=== PATIENT | female | born 1995 | race Caucasian/White ===

== ENCOUNTER 2022-05-21 12:32 | Emergency (ER) | payer MEDICAID, SELFPAY ==
[2022-05-21 12:37] VITALS: BP 102/68; PULSE 84; RESP 14; TEMP 36.6; O2SAT 97; BMI 25.2
--- NOTE | 2022-05-21 13:06 | ED_ITS ---
HPI - General Adult General: Chief complaint: Dizziness Stated complaint: dizzy; h/a; chills; exhaustion Time Seen by Provider: 05/21/22 12:58 History of Present Illness: 27-year-old female presenting to the emergency room with 3 days of generalized weakness decreased appetite and cough. Patient tells me that her sister who is 25 years old was recently tested positive for non-COVID coronavirus. Patient denies any fever but reports generalized weakness, decreased appetite. Patient tells me she has not really eaten in the last 3 days. Patient is currently on her period and has occasional vaginal spotting. Patient has a history of anemia but has not denies any heavy bleeding , melena hematochezia. No other urinary complaints at this time. Onset:3 days ago Duration:3 days Location:home Severity:mild Associated symptoms: Reports nausea; Deny chest pain, dyspnea, rash, palpitations or vomiting Review of Systems Const: Denies: fever(s) or chills Eyes: Denies: change in vision ENMT: Denies: mouth pain Card: Denies: chest pain or palpitations Resp: Reports: non-productive cough; Denies: dyspnea GI: Reports: nausea and other (+decreased po intake); Denies: abdominal pain, vomiting or diarrhea : Denies: dysuria Musc: Denies: extremity pain Skin/Breast: Denies: rash or new lesions Neuro: Denies: weakness in extremities Psych: Reports: other (Normal mood) Edi/Lymph: Denies: easy bruising PFSH ED PFSH: Medical History Anemia Social History Smoking and tobacco status: never smoked Alcohol intake: never Substance/Drug Use: never Female Reproductive History: Date of last menstrual period: 05/13/22 Physical Exam Const: COMMON NORMALS: alert HENMT: COMMON NORMALS: atraumatic HEAD & SCALP: atraumatic MOUTH: moist mucous membranes not abnormal Eye: COMMON NORMALS: EOMs intact bilaterally and conjunctivae normal CONJUNCTIVA: Yes conjunctivae normal Neck/C-Spine: COMMON NORMALS: full ROM and supple Resp: COMMON NORMALS: normal respiratory effort and clear to auscultation bilaterally AUSCULTATION: clear to auscultation bilaterally Cardio: COMMON NORMALS: regular rate RATE: regular rate GI: COMMON NORMALS: Soft to palpation and non-tender PALPATION: Yes Soft to palpation OTHER: No focal TTP. NO guarding rebound, guarding, rigidity. No CVA tenderness to percussion. Neg Garcia/Neg McBurney's point tenderness, no suprabupic tenderness to palpation. Extremity: COMMON NORMALS: full ROM Neuro: SENSORIUM/ORIENTATION: Yes alert MOTOR EXAM: No Abnormal motor strength present and Other motor observations present (no focal motor deficits) Psych: COMMON NORMALS: speech normal SPEECH: Yes normal speech MOOD & AFFECT: Yes euthymic mood Course Vital Signs: Vital signs: Vital Signs Temperature 97.8 F 05/21/22 12:37 Pulse Rate 84 05/21/22 12:37 Respiratory Rate 14 05/21/22 12:37 Blood Pressure 102/68 05/21/22 12:37 Pulse Oximetry 97 05/21/22 12:37 Oxygen Delivery Me thod 05/21/22 12:37 MDM - General Adult Medical Decision Making 27-year-old female presenting to the emergency room with 3 days of generalized weakness decreased appetite and cough. UA showed 3+ blood. Patient is currently on her period. Patient has no signs of flank pain nausea/vomiting, do not suspect acute renal colic. No signs of UTI in the urine. White count 7.0. Hemoglobin 13.9. Rest of lab largely within normal limit. Patient received IVF, Zofran GI cocktail reports feeling symptomatically improved. Patient tolerated p.o. without any difficulty. Rx tylenol PRN abd pain, maalox/pepcid PRN dyspepsia, and zofran PRN nausea/vomiting Disposition: Discharge. Patient counseled regarding diagnostic impression, treatment plan. Patient given ED strict return precautions to return for continuation, worsening, or development of new symptoms. Instructed to f/u w/ PCP regarding symptoms today. Patient verbalized understanding. Lab Data : 05/21/22 13:25 05/21/22 13:25 Laboratory Results WBC 7.0 10^3/uL (4.0-10.0) 05/21/22 13:25 RBC 4.49 10^6/uL (4.1-5.3) 05/21/22 13:25 Hgb 13.9 g/dL (11.5-15.3) 05/21/22 13:25 Hct 42.6 % (37.0-47.0) 05/21/22 13:25 MCV 94.9 fl (81-99) 05/21/22 13:25 MCH 31.0 pg (28.0-34.0) 05/21/22 13:25 MCHC 32.6 g/dL (30.0-36.0) 05/21/22 13:25 RDW 12.0 % (12.1-15.1) L 05/21/22 13:25 Plt Count 219 10^3/cmm (130-400) 05/21/22 13:25 MPV 10.8 fL (7.4-10.4) H 05/21/22 13:25 Neut % (Auto) 65.7 % 05/21/22 13:25 Lymph % (Auto) 24.6 % 05/21/22 13:25 [place] % (Auto) 7.8 % 05/21/22 13:25 Eos % (Auto) 1.2 % 05/21/22 13:25 Baso % (Auto) 0.6 % 05/21/22 13:25 Neut # (Auto) 4.57 10^3/uL (1.8-7.7) 05/21/22 13:25 Lymph # (Auto) 1.7 10^3/uL (0.8-4.8) 05/21/22 13:25 [place] # (Auto) 0.5 10^3/uL (0.2-0.9) 05/21/22 13:25 Eos # (Auto) 0.1 10^3/uL (0.0-0.8) 05/21/22 13:25 Baso # (Auto) 0.0 10^3/uL (0.0-0.1) 05/21/22 13:25 Nucleated RBC % (auto) 0 % 05/21/22 13:25 Nucleated RBCs # 0.0 /100WBC 05/21/22 13:25 Sodium 141 mmol/L (136-145) 05/21/22 13:25 Potassium 3.8 mmol/L (3.5-5.1) 05/21/22 13:25 Chloride 103 mmol/L (98-107) 05/21/22 13:25 Carbon Dioxide 27 mmol/L (22-29) 05/21/22 13:25 Anion Gap 14.8 (5-19) 05/21/22 13:25 BUN 22 mg/dL (6-20) H 05/21/22 13:25 Creatinine 0.9 mg/dL (0.5-0.9) 05/21/22 13:25 GFR Calculation 75.1 mL/min (90-130) L 05/21/22 13:25 Glucose 79 mg/dL (65-115) 05/21/22 13:25 Calculated Osmolality 294 mOsm/kg (285-295) 05/21/22 13:25 Calcium 9.0 mg/dL (8.5-10.5) 05/21/22 13:25 Total Bilirubin 0.5 mg/dL (0.15-1.2) 05/21/22 13:25 AST 13 U/L (0-32) 05/21/22 13:25 ALT 12 U/L (0-33) 05/21/22 13:25 Alkaline Phosphatase 55 U/L (35-105) 05/21/22 13:25 Total Protein 7.8 g/dL (6.6-8.7) 05/21/22 13:25 Albumin 4.8 g/dL (3.5-5.2) 05/21/22 13:25 Globulin 3.0 g/dL (1.3-4.6) 05/21/22 13:25 Lipase 23 U/L (13-60) 05/21/22 13:25 HCG, Qual Negative (Negative) 05/21/22 13:08 Urine Color Yellow (Yellow) 05/21/22 13:08 Urine Appearance Clear (CLEAR) 05/21/22 13:08 Urine pH 5 (5-7) 05/21/22 13:08 Ur Specific [place] 1.025 (1.005-1.030) 05/21/22 13:08 Urine Protein Neg (Negative) 05/21/22 13:08 Urine Glucose (UA) Norm (Normal) 05/21/22 13:08 Urine Ketones Negative (Negative) 05/21/22 13:08 Urine Blood 3+ (Negative) H 05/21/22 13:08 Urine Nitrate Negative (Negative) 05/21/22 13:08 Urine Bilirubin Neg (Negative) 05/21/22 13:08 Urine Urobilinogen Norm mg/dL (Negative) 05/21/22 13:08 Ur Leukocyte Esterase Negative (Negative) 05/21/22 13:08 Urine RBC None /hpf (0-2) 05/21/22 13:08 Urine WBC Rare /hpf (0-5) 05/21/22 13:08 Ur Squamous Epith Cells 0-4 /hpf (0-5) H 05/21/22 13:08 Amorphous Sediment Not Reportable 05/21/22 13:08 Urine Bacteria 1+ /hpf (NONE) H 05/21/22 13:08 Urine Mucus 1+ /hpf 05/21/22 13:08 Discharge Plan Discharge Patient Disposition: Home Clinical Impression: Malaise, Generalized weakness Condition: Stable Prescriptions: New acetaminophen 500 mg tablet 500 mg PO Q6H PRN (Reason: pain) 5 Days Qty: 20 0RF Maalox Advanced 1,000-60 mg tablet,chewable 1 tab PO TID PRN (Reason: abdominal pain) 7 Days Qty: 21 0RF Pepcid 20 mg tablet 20 mg PO BID PRN (Reason: abdominal pain) 10 Days Qty: 20 0RF ondansetron 4 mg tablet,disintegrating 4 mg PO TID PRN (Reason: nausea and vomiting) 4 Days Qty: 12 0RF Discharge Orders: Discharge ED (Routine); Ordered 05/21/22 Ordered By: Nilay Harrison Discharge Diet: Advance as tolerated Discharge Activity: Increase activity as tolerated Patient Instructions: Acute Cough (ED) Activity Restrictions/Additional Instructions: Come back to the emergency room if your symptoms worsen, have any shortness of breath, fever/chills, dehydration, inability tolerate food or drinks, any difficulty breathing, or any new or concerning complaints. Please come back if you have any worsening abdominal pain, fever or chills, nausea or vomiting, diarrhea, blood in the stool, inability hold down liquid or solids, or any new concerning complaints. Coding Level of Care Code ED Automation Tender for Chg Fwd Exam Comprehensive
[2022-05-21] MEDS: sodium chloride 0.9% 1,000 ML 999 ML IV ×2 (13:23→14:23)
[2022-05-21] MEDS: lidocaine 2% viscous 15 ML, aluminum-mag hydrox-simethicon 30 ML, sucralfate oral liq 1 GM PO (13:23)
[2022-05-21 13:35] LABS: Basophils % 0.6 %; Eosinophils # 0.1 10^3/uL (0.0-0.8); Eosinophils % 1.2 %; Hematocrit 42.6 % (37.0-47.0); Hemoglobin 13.9 g/dL (11.5-15.3); Lymphocytes # 1.7 10^3/uL (0.8-4.8); Lymphocytes % 24.6 %; Mean Corpuscular HGB Conc 32.6 g/dL (30.0-36.0); Mean Corpuscular Volume 94.9 fl (81-99); Mean Platelet Volume 10.8 fL (7.4-10.4); Monocytes # 0.5 10^3/uL (0.2-0.9); Monocytes % 7.8 %; Neutrophils # 4.57 10^3/uL (1.8-7.7); Neutrophils % 65.7 %; Nucleated Red Blood Cells % 0 %; Platelet Count 219 10^3/cmm (130-400); Red Blood Count 4.49 10^6/uL (4.1-5.3)
[2022-05-21 13:36] LABS: HCG Qualitative Urine. Negative (Negative)
[2022-05-21] MEDS: ketorolac 30 mg/mL INJ IVP (13:51)
[2022-05-21 14:09] LABS: Alanine Aminotransferase 12 U/L (0-33); Albumin Level 4.8 g/dL (3.5-5.2); Alkaline Phosphatase 55 U/L (35-105); Anion Gap 14.8 (5-19); Aspartate Amino Transferase 13 U/L (0-32); Blood Urea Nitrogen 22 mg/dL (6-20); Carbon Dioxide 27 mmol/L (22-29); Chloride 103 mmol/L (98-107); Glomerular Filtration Rate 75.1 mL/min (90-130); Glucose 79 mg/dL (65-115); Lipase 23 U/L (13-60); Osmolality Calculated 294 mOsm/kg (285-295); Potassium 3.8 mmol/L (3.5-5.1); Sodium 141 mmol/L (136-145); Total Bilirubin 0.5 mg/dL (0.15-1.2); Total Protein 7.8 g/dL (6.6-8.7)
[2022-05-21 14:11] LABS: Add Urine Microscopic? YES; Bilirubin Urine Neg (Negative); Blood Urine 3+ (Negative); Glucose Urine UA Norm (Normal); Ketones Urine Negative (Negative); Leukocyte Esterase Urine Negative (Negative); Nitrate Urine Negative (Negative); Protein Urine Neg (Negative); Specific Gravity, Urine 1.025 (1.005-1.030); Urine Appearance Clear (CLEAR); Urine Color Yellow (Yellow); Urobilinogen Urine Norm (Negative); pH Urine 5 (5-7)
[2022-05-21 14:17] LABS: Bacteria Urine 1+ /hpf; Mucus Urine 1+ /hpf; Squamous Epithelial Cell Urine 0-4 /hpf (0-5); WBC Urine RARE /hpf (0-5)
[2022-05-21 14:18] LABS: Add Urine Culture? No
[2022-05-21 15:08] VITALS: BP 104/70; PULSE 84; RESP 14; TEMP 36.6; O2SAT 97
[2022-05-21 16:19] LABS: Adenovirus Not Detected (NOT DETECT); Chlamydia Pneumoniae Not Detected (NOT DETECT); Coronavirus 229E,HKU1,NL63,OC4 Not Detected (NOT DETECT); Human Metapneumovirus Not Detected (NOT DETECT); Human Rhinovirus/Enterovirus Not Detected (NOT DETECT); Influenza A Not Detected (NOT DETECT); Influenza A H1 Not Detected (NOT DETECT); Influenza A H1-2009 Not Detected (NOT DETECT); Influenza A H3 Not Detected (NOT DETECT); Influenza B Not Detected (NOT DETECT); Mycoplasma Pneumoniae Not Detected (NOT DETECT); Parainfluenza Virus Type 1 Not Detected (NOT DETECT); Parainfluenza Virus Type 2 Not Detected (NOT DETECT); Parainfluenza Virus Type 3 Not Detected (NOT DETECT); Parainfluenza Virus Type 4 Not Detected (NOT DETECT); Respiratory Syncytial Virus A Not Detected (NOT DETECT); Respiratory Syncytial Virus B Not Detected (NOT DETECT); SARS-COV-2 Not Detected (NOT DETECT)
[2022-05-21 16:56] LABS: Influenza A Not Detected (NOT DETECT); Influenza A H1 Not Detected (NOT DETECT); Influenza A H1-2009 Not Detected (NOT DETECT); Influenza A H3 Not Detected (NOT DETECT); Influenza B Not Detected (NOT DETECT); Results from Genmark
== END 2022-05-21 15:13 | disposition home or self-care (01) ==
PROVIDERS: Emergency Provider Emergency Medicine
DX: R53.81 Other malaise (principal); R53.1 Weakness; Z20.822 Contact with and (suspected) exposure to COVID-19
CPT/HCPCS: 80053; 81001; 81025; 83690; 85025; 87631; 87635; 96361; 96374; 99284; J1885; J7030

== ENCOUNTER → 2022-12-08 10:09 | Outpatient (BNVA) | payer MEDICAID, SELFPAY | PROVIDERS: Visit Provider Nurse Practitioner Family | DX: M25.511 Pain in right shoulder (principal) | CPT/HCPCS: 73030 ==

== ENCOUNTER 2023-02-04 08:22 | Emergency (ER) | payer MEDICAID, SELFPAY ==
[2023-02-04 08:27] VITALS: BP 104/75; PULSE 79; RESP 18; TEMP 36.6; O2SAT 99; BMI 25.7
[2023-02-04 08:45] VITALS: BP 104/75; PULSE 79; RESP 18; O2SAT 99
--- NOTE | 2023-02-04 08:55 | ED_ITS ---
HPI - Extremity Problem General: Chief complaint: Extremity Injury, Upper Stated complaint: pain in RT shoulder Time Seen by Provider: 02/04/23 08:42 History of Present Illness: Patient presents to the ER with right-sided posterior rib/scapular region pain. She has had this pain for several days this instance she has had it multiple times in the past. She is seen ER/family practice/chiropractors. They states the rib pops out of place. MD Complaint: other (Right posterior rib shoulder pain.) Onset (ago): day(s) (This time 2 days otherwise off and on) Pain Consistency: constant Location: right and upper extremity Quality: burning and aching Radiation: distal Relieving factors: nothing Exacerbating factors: range of motion and palpation Associated symptoms: Reports no associated symptoms; Deny chest pain, fever(s) or rash Review of Systems General: Reports: 10 or more systems reviewed and unremarkable except in HPI and below Const: Denies: fever(s) or chills Eyes: Denies: change in vision or photophobia ENMT: Denies: throat pain or odynophagia Card: Denies: chest pain or palpitations Resp: Denies: dyspnea or productive cough GI: Denies: abdominal pain, nausea or vomiting : Denies: flank pain or difficulty voiding Musc: Reports: back pain Skin/Breast: Denies: rash or pruritus PFS ED PFSH: Medical History Anemia Social History Smoking and tobacco status: never smoked Alcohol intake: never Substance/Drug Use: never Physical Exam Const: COMMON NORMALS: no acute distress, average body habitus, patient oriented x3, no limitations, healthy appearing, alert and well nourished HENMT: COMMON NORMALS: normocephalic, atraumatic, hearing grossly normal bilaterally, external ears normal, Normal external nose present and moist oral mucous membranes HEAD & SCALP: normocephalic and atraumatic NOSE: Normal external nose present EXTERNAL EAR: Yes external ears normal Eye: COMMON NORMALS: Equal, round and reactive pupils present, EOMs intact bilaterally, conjunctivae normal and no scleral icterus CONJUNCTIVA: Yes conjunctivae normal PUPIL: Yes Equal, round and reactive pupils present Neck/C-Spine: COMMON NORMALS: full ROM, no lymphadenopathy, no meningeal signs, no JVD and Thyroid normal THYROID: Thyroid normal Chest: COMMONS NORMALS: normal inspection of the chest and normal palpation of entire chest wall Resp: COMMON NORMALS: normal respiratory effort, No retractions, No use of accessory muscles and clear to auscultation bilaterally AUSCULTATION: clear to auscultation bilaterally Cardio: COMMON NORMALS: no JVD, regular rate, regular rhythm, S1 normal heart sound present, S2 normal heart sound present, No gallops present (Cardio), No clicks present (Cardio), No murmurs present (Cardio) and No rub (Cardio) RATE: regular rate RHYTHM: regular rhythm HEART SOUNDS: S1 normal heart sound present and S2 normal heart sound present Back/Pelvis: OTHER: Tenderness to palpation over approximately T6 on the right ropey fibrotic muscles tender to palpation with radiation. Negative tenderness over spinal process. Neuro: COMMON NORMALS: patient oriented x3 SENSORIUM/ORIENTATION: Yes alert MENINGEAL SIGNS: Yes no meningeal signs Course Vital Signs: Vital signs: Vital Signs Temperature 97.9 F 02/04/23 08:27 Pulse Rate 79 02/04/23 08:45 Respiratory Rate 18 02/04/23 08:45 Blood Pressure 104/75 02/04/23 08:45 Pulse Oximetry 99 02/04/23 08:45 Oxygen Delivery Me thod Room Air 02/04/23 08:45 MDM - Extremity (Nontraumatic) Medical Decision Making Patient presents to the ER with complaints of right thoracic spine/scapular pain reproducible with palpation. Patient has had this multiple times in the past and went to a chiropractor with resolution. This pain is reproducible with palpation and does radiate. Patient has some somatic dysfunction of her thora cic spinal region with fibrotic ropey muscles. Patient will be given Toradol IM and be sent home on anti-inflammatory. Patient will be told to follow-up with her PCP and chiropractor as needed. Differential Diagnosis Unlikely herpes zoster, gout, cellulitis, superficial thrombophlebitis, deep venous thrombosis of upper extremity, lower extremity edema or deep vein thrombosis of lower extremity Medical Records I reviewed the patient's medical records. Lab Data I reviewed the patient's lab results. Discharge Plan Discharge Patient Disposition: Home Clinical Impression: Thoracic spine dysfunction, Spasm of thoracic back muscle Condition: Stable Prescriptions: New meloxicam 7.5 mg tablet 7.5 mg PO BID Qty: 14 0RF cyclobenzaprine 5 mg tablet 5 mg PO Q8H PRN (Reason: muscle spasm) Qty: 14 0RF No Action ondansetron 8 mg tablet,disintegrating 8 mg PO Q8H PRN (Reason: nausea and vomiting) 5 Days Qty: 15 0RF dicyclomine 20 mg tablet 20 mg PO TID Qty: 30 0RF Discharge Orders: Discharge ED (Routine); Ordered 02/04/23 Ordered By: Billy Zambrano Referrals: Arben Sigala MD [Primary Care Provider] - 1 week Patient Instructions: Thoracic Pain (ED), Muscle Spasm (ED) Activity Restrictions/Additional Instructions: Please take medicine as directed. Please use anti-inflammatories on a daily basis until better. Please use the muscle relaxers on an as-needed basis. Please follow-up with your family practice physician and/or chiropractor for further treatment Coding Level of Care Code ED Plug Overwrap Machine Tender for Zach Moe
[2023-02-04] MEDS: ketorolac 60 mg/2 mL INJ IM (09:02)
[2023-02-04 09:16] VITALS: PULSE 68; RESP 18; O2SAT 99
== END 2023-02-04 09:17 | disposition home or self-care (01) ==
PROVIDERS: Emergency Provider Emergency Medicine
DX: M53.84 Other specified dorsopathies, thoracic region (principal); M62.830 Muscle spasm of back
CPT/HCPCS: 96372; 99284; J1885

== ENCOUNTER 2023-04-22 11:37 | Emergency (ER) | payer OTHER, MEDICAID, SELFPAY ==
[2023-04-22 11:40] VITALS: BMI 25.9
[2023-04-22 11:43] VITALS: BP 104/70; PULSE 88; RESP 16; TEMP 37.1; O2SAT 99
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
[2023-04-22 14:15] VITALS: BP 202/131; O2SAT 97
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
== END 2023-04-22 15:44 | disposition home or self-care (01) ==
PROVIDERS: Emergency Provider Emergency Medicine
DX: M54.50 Low back pain, unspecified (principal); F07.81 Postconcussional syndrome
CPT/HCPCS: 70450; 72100; 99284

== ENCOUNTER → 2023-06-15 09:29 | Outpatient (BNVA) | payer MEDICAID, SELFPAY | PROVIDERS: Visit Provider Family Medicine | DX: Z86.2 Personal history of diseases of the blood and blood-forming organs and certain disorders involving the immune mechanism; K21.9 Gastro-esophageal reflux disease without esophagitis; G47.00 Insomnia, unspecified | CPT/HCPCS: 80053; 82728; 83550; 84439; 84443; 85025 ==

== ENCOUNTER 2023-07-02 09:54 | Emergency (ER) | payer MEDICAID, SELFPAY ==
[2023-07-02 09:59] VITALS: BP 108/69; PULSE 83; RESP 16; TEMP 36.8; O2SAT 97; BMI 26.6
--- NOTE | 2023-07-02 10:25 | W.ED.BACK ---
HPI - Back Pain/Injury General: Chief Complaint: Back Pain/Injury Stated Complaint: upper Rt Abd pain Time Seen by Provider: 07/02/23 09:55 Source: patient Mode of arrival: ambulatory History of Present Illness: 28-year-old female presents emergency room complaining of upper back pain at the level of the lower scapula. She states is actually worse when she rubs that she is or moves in particular ways she done some heavy lifting and twisting yesterday overnight seem to be worse. She has had this intermittently for years she has been to her chiropractor for it she has tried various cilh-iyz-kqbaguz medications with no particular relief of the symptoms she denies any dysuria urgency or frequency nausea vomiting or diarrhea at this time. MD elicited complaint: back pain Pertinent past history: prior back pain Onset (ago): hour(s) Timing: constant Severity: moderate Similar Symptoms Previously: Yes Quality: sharp Location: thoracic spine (Right side level of the lower portion of the scapula) Radiation: chest (Right lateral chest) Exacerbating factors: movement (Twisting) and other (Massaging area) Relieving factors: immobilization Context: while lifting and turning/twisting Associated symptoms: Deny abdominal pain, chills, dysuria, fever(s) or urinary urgency Work related injury: No Review of Systems Const: Denies: fever(s) or chills Card: Denies: chest pain Resp: Denies: dyspnea GI: Denies: abdominal pain : Denies: dysuria, urinary frequency or urinary urgency Musc: Denies: neck pain or back pain Skin/Breast: Denies: rash PFSH ED PFSH: Medical History Acid reflux Anemia Anxiety Asthma Depression History of anemia IBS (irritable bowel syndrome) Insomnia Surgical History History of bilateral tubal ligation History of History of cholecystectomy Family History Grandmother Cancer Maternal-brain Mother Cancer breast/cervical Family/Other Cancer Maternal aunt-breast/cervical Family/Other Cancer, Onset Age: 4 Maternal lhmti-hxhghwyp-fyujmb away d/t this Brother Psychiatric illness Sister Psychiatric illness Sister Psychiatric illness Other Bleeding disorder Diabetes Hypertension Lung disease Stroke Denies family history of CAD (coronary artery disease) Clotting disorder Dementia Hyperlipidemia Chronic kidney disease (CKD) Anesthesia complication Social History Smoking and tobacco/nicotine status: never used tobacco/nicotine Alcohol intake: never Substance/Drug Use: never Lives independently: Yes Marital status: Number of children: 5 Current occupational status: disabled Rosalind/Worship: Sikhism Special roaslind needs: No Agree to transfusion: Yes Physical Exam Const: COMMON NORMALS: no acute distress GENERAL APPEARANCE: cooperative and comfortable ORIENTATION/CONSCIOUSNESS: Yes awake, Yes oriented to person, Yes oriented to place and Yes oriented to time HENMT: COMMON NORMALS: normocephalic, atraumatic and hearing grossly normal bilaterally HEAD & SCALP: normocephalic and atraumatic Resp: COMMON NORMALS: normal respiratory effort, No retractions, No use of accessory muscles and clear to auscultation bilaterally AUSCULTATION: clear to auscultation bilaterally Cardio: COMMON NORMALS: regular rate, regular rhythm and No murmurs present (Cardio) RATE: regular rate RHYTHM: regular rhythm GI: COMMON NORMALS: Soft to palpation and No hepatosplenomegaly present AUSCULTATION: Yes normoactive bowel sounds PALPATION: Yes Soft to palpation, No Tenderness to palpation present (GI), No Guarding due to palpation present (GI) and Yes No hepatosplenomegaly present Extremity: COMMON NORMALS: normal to inspection, capillary refill normal, no clubbing, cyanosis or edema, no calf tenderness and no pedal edema Neuro: SENSORIUM/ORIENTATION: Yes oriented to person, Yes oriented to place and Yes oriented to time Skin: COMMON NORMALS: no rashes or lesions noted GENERAL SKIN EXAM: no rashes or lesions noted Course Vital Signs: Vital signs: Vital Signs Temperature 98.2 F 07/02/23 09:59 Pulse Rate 83 07/02/23 09:59 Respiratory Rate 16 07/02/23 09:59 Blood Pressure 108/69 07/02/23 09:59 Pulse Oximetry 97 07/02/23 09:59 Oxygen Delivery Me thod Room Air 07/02/23 09:59 MDM - Back Pain/Injury Medical Decision Making Labs and imaging reviewed no acute findings. No leukocytosis no elevation of liver enzymes chest x-ray unremarkable. Suspect this more musculoskeletal in nature tizanidine diclofenac to use as needed follow-up with primary care if worsening or change recheck Differential Diagnosis Likely renal colic, pyelonephritis and thoracic back pain Medical Records I reviewed the patient's medical records. Labs I reviewed the patient's lab results. 07/02/23 11:27 07/02/23 11:27 Radiology Impressions Chest X-Ray 07/02/23 10:32 IMPRESSION: No acute findings. Laboratory Results WBC 5.69 10^3/uL (3.29-11.43) 07/02/23 11: RBC 4.19 10^6/uL (3.85-5.65) 07/02/23 11: Hgb 13.00 g/dL (11.27-16.99) 07/02/23 11: Hct 39.5 % (36-47) 07/02/23 11: MCV 94.3 fl (85-98) 07/02/23 11: MCH 31.0 pg (27-33) 07/02/23 11: MCHC 32.9 g/dL (30-55) 07/02/23 11: RDW 11.7 % (12.1-15.1) L 07/02/23 11: Plt Count 183 10^3/cmm (157-399) 07/02/23 11: MPV 10.0 fL (7.4-10.4) 07/02/23 11: Neut % (Auto) 59.5 % 07/02/23 11: Lymph % (Auto) 28.5 % 07/02/23 11: Mckinley % (Auto) 9.5 % 07/02/23 11: Eos % (Auto) 1.4 % 07/02/23 11: Baso % (Auto) 0.7 % 07/02/23 11: Neut # (Auto) 3.39 10^3/uL (1.8-7.7) 07/02/23 11: Lymph # (Auto) 1.6 10^3/uL (0.8-4.8) 07/02/23 11:27 Mckinley # (Auto) 0.5 10^3/uL (0.2-0.9) 07/02/23 11:27 Eos # (Auto) 0.1 10^3/uL (0.0-0.8) 07/02/23 11:27 Baso # (Auto) 0.0 10^3/uL (0.0-0.1) 07/02/23 11:27 Nucleated RBC % (auto) 0 % 07/02/23 11:27 Nucleated RBCs # 0.0 /100WBC 07/02/23 11:27 Sodium 138 mmol/L (136-145) 07/02/23 11:27 Potassium 3.8 mmol/L (3.5-5.1) 07/02/23 11:27 Chloride 104 mmol/L (98-107) 07/02/23 11:27 Carbon Dioxide 26 mmol/L (22-29) 07/02/23 11:27 Anion Gap 11.8 (5-19) 07/02/23 11:27 BUN 23 mg/dL (6-20) H 07/02/23 11:27 Creatinine 0.7 mg/dL (0.5-0.9) 07/02/23 11:27 GFR Calculation 99.6 mL/min (90-130) 07/02/23 11:27 Glucose 89 mg/dL (65-115) 07/02/23 11:27 Calculated Osmolality 289 mOsm/kg (285-295) 07/02/23 11:27 Calcium 8.8 mg/dL (8.5-10.5) 07/02/23 11:27 Total Bilirubin 0.8 mg/dL (0.15-1.2) 07/02/23 11:27 AST 16 U/L (0-32) 07/02/23 11:27 ALT 11 U/L (0-33) 07/02/23 11:27 Alkaline Phosphatase 54 U/L (35-105) 07/02/23 11:27 Total Protein 7.0 g/dL (6.6-8.7) 07/02/23 11:27 Albumin 4.5 g/dL (3.5-5.2) 07/02/23 11:27 Globulin 2.5 g/dL (1.3-4.6) 07/02/23 11:27 Urine Color Yellow (Yellow) 07/02/23 11:53 Urine Appearance Clear (CLEAR) 07/02/23 11:53 Urine pH 6 (5-7) 07/02/23 11:53 Ur Specific [place] 1.020 (1.005-1.030) 07/02/23 11:53 Urine Protein Neg (Negative) 07/02/23 11:53 Urine Glucose (UA) Norm (Normal) 07/02/23 11:53 Urine Ketones Negative (Negative) 07/02/23 11:53 Urine Blood Trace (Negative) H 07/02/23 11:53 Urine Nitrate Negative (Negative) 07/02/23 11:53 Urine Bilirubin Neg (Negative) 07/02/23 11:53 Urine Urobilinogen Norm mg/dL (Negative) 07/02/23 11:53 Ur Leukocyte Esterase Negative (Negative) 07/02/23 11:53 Urine RBC 0-4 /hpf (0-2) H 07/02/23 11:53 Urine WBC 0-4 /hpf (0-5) H 07/02/23 11:53 Ur Squamous Epith Cells 0-4 /hpf (0-5) H 07/02/23 11:53 Amorphous Sediment Not Reportable 07/02/23 11:53 Urine Bacteria 2+ /hpf (NONE) H 07/02/23 11:53 Urine Mucus 1+ /hpf 07/02/23 11:53 All radiology interpretation(s) finalized by discharge Discharge Plan Discharge Patient Disposition: Home Clinical Impression: Thoracic back pain Condition: Stable Prescriptions: New tizanidine 4 mg tablet 4 mg PO Q6H PRN (Reason: muscle spasticity) Qty: 20 0RF Rx Instructions: do not exceed 3 doses per 24 hrs diclofenac sodium 75 mg tablet,delayed release (DR/EC) 75 mg PO Q12H PRN (Reason: pain) Qty: 20 0RF No Action ascorbate calcium (vitamin C) 500 mg tablet 500 mg PO DAILY Discharge Orders: Discharge ED (Routine); Ordered 07/02/23 Ordered By: Cornelius Henry Referrals: Arben Sigala MD [Primary Care Provider] - Discharge Diet: Usual diet Discharge Activity: Increase activity as tolerated Patient Instructions: Opioid Safety, Pain Management Activity Restrictions/Additional Instructions: If not improving with the medicines prescribed today follow-up with your primary care doctor for further evaluation of possible referral to physical therapy is felt appropriate Coding Level of Care Code ED E Learning Manager for Zach Moe
--- NOTE | 2023-07-02 10:32 | XRR_ITS ---
PROCEDURE INFORMATION: Exam: XR Chest Exam date and time: 07/02/2023 10:52 AM Age: 28 years old Clinical indication: Cough and dyspnea; Additional info: Dyspnea/cough TECHNIQUE: Imaging protocol: Radiologic exam of the chest. Views: 1 view. COMPARISON: CR XR shoulder RT min 2V* [id number] 12/08/2022 10:18 AM FINDINGS: Lungs: Unremarkable. No consolidation. Pleural spaces: Unremarkable. No pleural effusion. No pneumothorax. Heart/Mediastinum: Unremarkable. No cardiomegaly. Bones/joints: Unremarkable. XR/XR chest 1V portable [id number] IMPRESSION: No acute findings.
[2023-07-02] MEDS: ketorolac 30 mg/mL INJ IVP (10:42)
[2023-07-02 11:34] LABS: Basophils % 0.7 %; Eosinophils # 0.1 10^3/uL (0.0-0.8); Eosinophils % 1.4 %; Hematocrit 39.5 % (36-47); Lymphocytes # 1.6 10^3/uL (0.8-4.8); Lymphocytes % 28.5 %; Mean Corpuscular HGB Conc 32.9 g/dL (30-55); Mean Corpuscular Volume 94.3 fl (85-98); Monocytes # 0.5 10^3/uL (0.2-0.9); Monocytes % 9.5 %; Neutrophils # 3.39 10^3/uL (1.8-7.7); Neutrophils % 59.5 %; Nucleated Red Blood Cells % 0 %; Platelet Count 183 10^3/cmm (157-399); Red Blood Count 4.19 10^6/uL (3.85-5.65); Red Cell Distribution Width 11.7 % (12.1-15.1); White Blood Count 5.69 10^3/uL (3.29-11.43)
[2023-07-02 11:56] LABS: Alanine Aminotransferase 11 U/L (0-33); Albumin Level 4.5 g/dL (3.5-5.2); Alkaline Phosphatase 54 U/L (35-105); Anion Gap 11.8 (5-19); Aspartate Amino Transferase 16 U/L (0-32); Blood Urea Nitrogen 23 mg/dL (6-20); Calcium 8.8 mg/dL (8.5-10.5); Carbon Dioxide 26 mmol/L (22-29); Chloride 104 mmol/L (98-107); Globulin 2.5 g/dL (1.3-4.6); Glomerular Filtration Rate 99.6 mL/min (90-130); Glucose 89 mg/dL (65-115); Osmolality Calculated 289 mOsm/kg (285-295); Potassium 3.8 mmol/L (3.5-5.1); Sodium 138 mmol/L (136-145); Total Bilirubin 0.8 mg/dL (0.15-1.2)
[2023-07-02 12:13] LABS: Add Urine Microscopic? YES; Bacteria Urine 2+ /hpf; Bilirubin Urine Neg (Negative); Blood Urine Trace (Negative); Glucose Urine UA Norm (Normal); Ketones Urine Negative (Negative); Leukocyte Esterase Urine Negative (Negative); Mucus Urine 1+ /hpf; Nitrate Urine Negative (Negative); Protein Urine Neg (Negative); RBC Urine 0-4 /hpf (0-2); Squamous Epithelial Cell Urine 0-4 /hpf (0-5); Urine Appearance Clear (CLEAR); Urine Color Yellow (Yellow); Urobilinogen Urine Norm (Negative); WBC Urine 0-4 /hpf (0-5); pH Urine 6 (5-7)
[2023-07-02 12:14] LABS: Add Urine Culture? No
== END 2023-07-02 12:36 | disposition home or self-care (01) ==
PROVIDERS: Emergency Provider Family Medicine
DX: M54.6 Pain in thoracic spine (principal)
CPT/HCPCS: 36415; 71045; 80053; 81001; 85025; 96374; 99284; J1885

== ENCOUNTER → 2023-10-19 15:46 | Outpatient (BNVA) | payer MEDICAID, SELFPAY | PROVIDERS: Visit Provider Nurse Practitioner Family | DX: J02.9 Acute pharyngitis, unspecified (principal) | CPT/HCPCS: 87880 ==

== ENCOUNTER → 2024-01-22 09:08 | Outpatient (BNVA) | payer MEDICAID, SELFPAY | PROVIDERS: Visit Provider Nurse Practitioner Family | DX: R05.9 Cough, unspecified (principal) | CPT/HCPCS: 87400 ==

== ENCOUNTER → 2024-03-08 11:36 | Outpatient (BNVA) | payer MEDICAID, SELFPAY | PROVIDERS: Visit Provider Nurse Practitioner | DX: R39.9 Unspecified symptoms and signs involving the genitourinary system (principal); Z20.2 Contact with and (suspected) exposure to infections with a predominantly sexual mode of transmission | CPT/HCPCS: 81000; 87086; 87491; 87591 ==

== ENCOUNTER 2024-03-16 19:36 | Emergency (ER) | payer MEDICAID, SELFPAY ==
--- NOTE | 2024-03-16 19:40 | XRR_ITS ---
PROCEDURE INFORMATION: Exam: XR Right Knee Exam date and time: 03/16/2024 7:52 PM Age: 28 years old Clinical indication: Right; Patient HX: C/O worsening knee pain x 1 week. No injury. TECHNIQUE: Imaging protocol: Radiologic exam of the right knee. Views: 3 views. COMPARISON: No relevant prior studies available. FINDINGS: Bones/joints: No evidence of acute fracture or dislocation. No erosive disease. No significant degenerative change. No joint effusion. Soft tissues: Normal. XR/XR knee RT 3V* [id number] IMPRESSION: Normal exam.
[2024-03-16 19:42] VITALS: BP 112/74; PULSE 78; RESP 17; TEMP 36.8; O2SAT 98; BMI 26.2
--- NOTE | 2024-03-16 19:55 | W.ED.EXTPRO ---
HPI - Extremity Problem General: Chief complaint: Extremity Injury, Lower Stated complaint: Right knee pain Time Seen by Provider: 03/16/24 19:48 History of Present Illness: 28-year-old female comes in today with right knee pain. On exam patient appears nontoxic. Patient appears no acute distress. Patient reports for the last 7 days she has had increased pain to her knee. Patient reports that the pain increases the longer she stands on her knee. Patient also reports that when she rubs on the medial condyle of the femur she has more tenderness to the knee. Review of Systems General: Reports: 10 or more systems reviewed and unremarkable except in HPI and below PFSH ED PFSH: Medical History History of anemia Acid reflux Depression Anxiety IBS (irritable bowel syndrome) Insomnia Asthma Anemia Surgical History History of bilateral tubal ligation History of History of cholecystectomy Family History Grandmother Cancer Maternal-brain Mother Cancer breast/cervical Family/Other Cancer Maternal aunt-breast/cervical Family/Other Cancer, Onset Age: 4 Maternal tqurd-iunnglwl-qmxpbr away d/t this Brother Psychiatric illness Sister Psychiatric illness Sister Psychiatric illness Other Bleeding disorder Diabetes Hypertension Lung disease Stroke Denies family history of CAD (coronary artery disease) Clotting disorder Dementia Hyperlipidemia Chronic kidney disease (CKD) Anesthesia complication Social History Smoking and tobacco/nicotine status: unknown if used tobacco/nicotine Alcohol intake: never Substance/Drug Use: never Lives independently: Yes Marital status: Number of children: 5 Current occupational status: disabled Rosalind/Worship: Church Special rosalind needs: No Agree to transfusion: Yes Physical Exam Const: COMMON NORMALS: alert HENMT: COMMON NORMALS: normocephalic HEAD & SCALP: normocephalic Neck/C-Spine: COMMON NORMALS: full ROM Resp: COMMON NORMALS: normal respiratory effort Back/Pelvis: COMMON NORMALS: thoracic and lumbar spine normal to inspection Extremity: COMMON NORMALS: normal to inspection and full ROM RIGHT LOWER EXTREMITY: Yes knee joint (Joint line tenderness, no swelling) Neuro: SENSORIUM/ORIENTATION: Yes alert Skin: COMMON NORMALS: turgor normal GENERAL SKIN EXAM: turgor normal Course Vital Signs: Vital signs: Vital Signs Temperature 98.2 F 03/16/24 19:42 Pulse Rate 79 03/16/24 20:00 Respiratory Rate 15 03/16/24 20:00 Blood Pressure 105/70 03/16/24 20:00 Pulse Oximetry 97 03/16/24 20:00 Oxygen Delivery Me thod Room Air 03/16/24 20:00 MDM - Extremity (Nontraumatic) Medical Decision Making Patient comes in today for aggravating knee pain for the last week. On exam patient appears nontoxic. No obvious swelling is noted. Some medial joint line tenderness is noted to the knee. Differential diagnosis includes meniscal tear, contusion, osteoarthritis, sprain. X-ray was unremarkable. Believe patient most likely has a meniscal injury. Reviewed recommendations for conservative treatment and need for follow-up with orthopedics for further evaluation. Patient agreed to plan and recommendations for follow-up. XR interpretation done by ED provider, pending radiology final review Discharge Plan Discharge Patient Disposition: Home Clinical Impression: Impingement of right knee joint Condition: Stable Prescriptions: No Action nitrofurantoin monohyd/m-cryst [Macrobid] 100 mg capsule 100 mg PO BID 7 Days Qty: 14 0RF Rx Instructions: must administer with a meal/food Discharge Orders: Discharge ED (Routine); Ordered 03/16/24 Ordered By: Kit Rod Referrals: Arben Sigala MD [Primary Care Provider] - Discharge Diet: Usual diet Discharge Activity: Increase activity as tolerated Patient Instructions: Knee Pain (ED) Activity Restrictions/Additional Instructions: Use acetaminophen and/or ibuprofen as needed for pain. Ice packs for severe pain. Case management will contact you regarding follow-up with the orthopedist. Return to ED for new concerns. Coding Level of Care Code ED Development Planner for Zach Moe
[2024-03-16 20:00] VITALS: BP 105/70; PULSE 79; RESP 15; O2SAT 97
--- NOTE | 2024-03-19 07:13 | DCPLANNER ---
Message sent to Ortho for a follow up on possible meniscal injury to knee
== END 2024-03-16 20:28 | disposition home or self-care (01) ==
PROVIDERS: Emergency Provider Nurse Practitioner Family
DX: M25.861 Other specified joint disorders, right knee (principal); J45.909 Unspecified asthma, uncomplicated; E78.5 Hyperlipidemia, unspecified; I25.10 Atherosclerotic heart disease of native coronary artery without angina pectoris; F03.90 Unspecified dementia, unspecified severity, without behavioral disturbance, psychotic disturbance, mood disturbance, and anxiety
CPT/HCPCS: 73562; 99283

== ENCOUNTER 2024-08-04 12:15 | Emergency (ER) | payer MEDICAID, SELFPAY ==
[2024-08-04] VITALS (7 sets, daily range): BP systolic 112–133; BP diastolic 68–82; PULSE 68–90; RESP 16; TEMP 36.8; O2SAT 96–100; BMI 27.4
--- NOTE | 2024-08-04 12:35 | CTR_ITS ---
PROCEDURE INFORMATION: Exam: CT Head Without Contrast Exam date and time: 08/04/2024 12:39 PM Age: 29 years old Clinical indication: Injury or trauma; Fall; Blunt trauma (contusions or hematomas); Dizziness; Additional info: Fall, GARRETT, n/v TECHNIQUE: Imaging protocol: Computed tomography of the head without contrast. Axial, coronal and sagittal reformatted images were created and reviewed. Radiation optimization: All CT scans at this facility use at least one of these dose optimization techniques: automated exposure control; mA and/or kV adjustment per patient size (includes targeted exams where dose is matched to clinical indication); or iterative reconstruction. COMPARISON: CT head wo con* [id number] 04/22/2023 1:52 PM RADIATION DOSE METRICS: Total DLP (mGy-cm): 1052.18 FINDINGS: Brain: No CT evidence of acute intracranial hemorrhage or acute territorial infarction. No significant mass effect or midline shift. Basal cisterns patent. Cerebral ventricles: Normal in size and configuration. Paranasal sinuses: Unremarkable. No fluid levels. Mastoid air cells: Grossly unremarkable. Bones: Unremarkable. No acute fracture. Soft tissues: Grossly unremarkable. CT/CT head wo con* [id number] IMPRESSION: No CT evidence of acute intracranial pathology.
--- NOTE | 2024-08-04 13:04 | W.ED.FALL ---
HPI - Fall General: Chief Complaint: Fall Stated Complaint: fell - hit head, lightheaded, headache Time Seen by Provider: 08/04/24 12:21 History of Present Illness: Patient presents to the ER after a fall. Patient says she fell in her shower think she hit her head on the faucet. Denies loss conscious but does not remember a whole lot about the events after falling other than being nauseous and lightheaded and dizzy patient not on any blood thinners. Patient does have a history of a migraine for the last 3 days and she has a history of daily migraines. Related Data Home Medications Medication Instructions Recorded Confirmed ascorbic acid (vitamin C) 500 mg 250 mg PO DAILY 08/04/24 08/04/24 tablet (Vitamin C) gjzxllkl-xnu-abva-FA-Ca carb-vit K 1 tab PO DAILY 08/04/24 08/04/24 18 mg iron-400 mcg-500 mg tablet Allergies Allergy/AdvReac Type Severity Reaction Status Date / Time escitalopram [From Lexapro] Allergy ADR-Seizure Verified 08/04/24 12:32 sertraline [From Zoloft] Allergy ADR-Seizure Verified 08/04/24 12:32 Review of Systems General: Reports: 10 or more systems reviewed and unremarkable except in HPI and below PFSH ED PFSH: Medical History History of anemia Acid reflux Depression Anxiety IBS (irritable bowel syndrome) Insomnia Asthma Anemia Surgical History History of bilateral tubal ligation History of History of cholecystectomy Family History Grandmother Cancer Maternal-brain Mother Cancer breast/cervical Family/Other Cancer Maternal aunt-breast/cervical Family/Other Cancer, Onset Age: 4 Maternal lnzzv-bhvoovgw-epvrpd away d/t this Brother Psychiatric illness Sister Psychiatric illness Sister Psychiatric illness Other Bleeding disorder Diabetes Hypertension Lung disease Stroke Denies family history of CAD (coronary artery disease) Clotting disorder Dementia Hyperlipidemia Chronic kidney disease (CKD) Anesthesia complication Social History Smoking and tobacco/nicotine status: unknown if used tobacco/nicotine Alcohol intake: never Substance/Drug Use: never Lives independently: Yes Marital status: Number of children: 5 Current occupational status: disabled Rosalind/Restorationist: Nondenominational Special rosalind needs: No Agree to transfusion: Yes Physical Exam Const: COMMON NORMALS: no acute distress, average body habitus, patient oriented x3, no limitations, healthy appearing, alert and well nourished HENMT: COMMON NORMALS: normocephalic, atraumatic, hearing grossly normal bilaterally, external ears normal, Normal external nose present and moist oral mucous membranes HEAD & SCALP: normocephalic and atraumatic NOSE: Normal external nose present EXTERNAL EAR: Yes external ears normal Neck/C-Spine: COMMON NORMALS: full ROM, no lymphadenopathy, supple, no meningeal signs, no JVD and Thyroid normal THYROID: Thyroid normal Chest: COMMONS NORMALS: normal inspection of the chest and normal palpation of entire chest wall Resp: COMMON NORMALS: normal respiratory effort, No retractions, No use of accessory muscles and clear to auscultation bilaterally AUSCULTATION: clear to auscultation bilaterally Cardio: COMMON NORMALS: no JVD, regular rate, regular rhythm, S1 normal heart sound present, S2 normal heart sound present, No gallops present (Cardio), No clicks present (Cardio), No murmurs present (Cardio) and No rub (Cardio) RATE: regular rate RHYTHM: regular rhythm HEART SOUNDS: S1 normal heart sound present and S2 normal heart sound present GI: COMMON NORMALS: Normal to inspection, nondistended, normoactive bowel sounds present, Soft to palpation, non-tender, No hepatosplenomegaly present and no masses PALPATION: Yes Soft to palpation and Yes No hepatosplenomegaly present Neuro: COMMON NORMALS: patient oriented x3 SENSORIUM/ORIENTATION: Yes alert MENINGEAL SIGNS: Yes no meningeal signs Course Vital Signs: Vital signs: Vital Signs Temperature 98.2 F 08/04/24 12:22 Pulse Rate 81 08/04/24 14:32 Respiratory Rate 16 08/04/24 12:22 Blood Pressure 133/82 08/04/24 12:22 Pulse Oximetry 100 08/04/24 14:32 Oxygen Delivery Me thod Room Air 08/04/24 12:22 MDM - Fall Medical Decision Making Patient had a head CT read by the radiologist as negative. Patient was given Zofran for nausea which did seem to help. Patient be discharged home. Medical Records I reviewed the patient's medical records. Lab Data I reviewed the patient's lab results. Radiology Impressions Head CT 08/04/24 12:35 IMPRESSION: No CT evidence of acute intracranial pathology. All radiology interpretation(s) finalized by discharge Discharge Plan Discharge Patient Disposition: Home Clinical Impression: Fall, Headache Condition: Stable Prescriptions: No Action ascorbic acid (vitamin C) [Vitamin C] 500 mg Tablet 250 mg PO DAILY Women's Multivitamin 18 mg iron-400 mcg-500 mg Tablet 1 tab PO DAILY Discharge Orders: Discharge ED (Routine); Ordered 08/04/24 Ordered By: Billy Zambrano Referrals: Arben Sigala MD [Primary Care Provider] - 1 week Patient Instructions: Head Injury (ED), Headache Activity Restrictions/Additional Instructions: Your head CT performed in the ER was normal. It did not show any bleeding bruising or swelling. Please follow-up with your family practice physician within next 7 days for further evaluation and treatment as needed. Coding Level of Care Code ED Locomotive Observer for Zach oMe
[2024-08-04] MEDS: ondansetron 4 MG Tablet PO (13:45)
== END 2024-08-04 15:41 | disposition home or self-care (01) ==
PROVIDERS: Emergency Provider Emergency Medicine
DX: R51.9 Headache, unspecified (principal); W18.2XXA Fall in (into) shower or empty bathtub, initial encounter
CPT/HCPCS: 70450; 99284; Q0162

== ENCOUNTER 2024-10-06 16:54 | Emergency (ER) | payer MEDICAID, SELFPAY ==
[2024-10-06 17:21] VITALS: BP 100/63; PULSE 118; RESP 20; TEMP 38.5; O2SAT 100; BMI 26.6
--- NOTE | 2024-10-06 19:55 | ED_ITS ---
HPI - Nausea/Vomiting/Diarrhea 2 General: Chief complaint: Nausea/Vomiting/Diarrhea Stated complaint: dizzy,vomitting,weak Time Seen by Provider: 10/06/24 19:42 History of Present Illness: 29-year-old female comes in today with e pisodes of nausea, vomiting, cough and weakness for the last 2 days. Patient reports her son is also been ill. Patient denies any chronic medical problems. Associated nausea: Yes Associated symtoms: Reports nausea Related Data Home Medications Medication Instructions Recorded Confirmed ascorbic acid (vitamin C) 500 mg 250 mg PO DAILY 08/04/24 08/04/24 tablet (Vitamin C) hqjqewmk-yyh-akuu-FA-Ca carb-vit K 1 tab PO DAILY 08/04/24 08/04/24 18 mg iron-400 mcg-500 mg tablet Previous Rx's Medication Instructions Recorded ondansetron HCl 4 mg tablet 4 mg PO Q8H PRN Nausea And 10/06/24 Vomiting 3 days #9 tabs Allergies Allergy/AdvReac Type Severity Reaction Status Date / Time escitalopram [From Lexapro] Allergy ADR-Seizure Verified 10/06/24 17:21 sertraline [From Zoloft] Allergy ADR-Seizure Verified 10/06/24 17:21 Review of Systems 2 General: Reports: 10 or more systems reviewed and unremarkable except in HPI and below ENMT: Reports: nasal discharge Resp: Reports: non-productive cough GI: Reports: nausea and vomiting PFSH ED 2 PFSH: Medical History History of anemia Acid reflux Depression Anxiety IBS (irritable bowel syndrome) Insomnia Asthma Anemia Surgical History History of bilateral tubal ligation History of History of cholecystectomy Family History Grandmother Cancer Maternal-brain Mother Cancer breast/cervical Family/Other Cancer Maternal aunt-breast/cervical Family/Other Cancer, Onset Age: 4 Maternal fvlbw-jfenpaps-htjxpw away d/t this Brother Psychiatric illness Sister Psychiatric illness Sister Psychiatric illness Other Bleeding disorder Diabetes Hypertension Lung disease Stroke Denies family history of CAD (coronary artery disease) Clotting disorder Dementia Hyperlipidemia Chronic kidney disease (CKD) Anesthesia complication Social History (Reviewed 08/04/24 @ 13:04 by VICTORIANO Israel Smoking and tobacco/nicotine status: unknown if used tobacco/nicotine Alcohol intake: never Substance/Drug Use: never Lives independently: Yes Marital status: Number of children: 5 Current occupational status: disabled Rosalind/Baptist: Religion Special rosalind needs: No Agree to transfusion: Yes Physical Exam 2 Const: COMMON NORMALS: alert HENMT: COMMON NORMALS: normocephalic HEAD & SCALP: normocephalic NOSE: N sangeeta discharge present Neck/C-Spine: COMMON NORMALS: full ROM Resp: COMMON NORMALS: normal respiratory effort and clear to auscultation bilaterally AUSCULTATION: clear to auscultation bilaterally Cardio: COMMON NORMALS: regular rate and regular rhythm RATE: regular rate RHYTHM: regular rhythm GI: COMMON NORMALS: Soft to palpation PALPATION: Yes Soft to palpation and Yes Tenderness to palpation present (GI) (Epigastric) Extremity: COMMON NORMALS: normal to inspection Neuro: SENSORIUM/ORIENTATION: Yes alert Skin: COMMON NORMALS: turgor normal GENERAL SKIN EXAM: turgor normal Course 2 Vital Signs: Vital signs: Vital Signs Temperature 101.3 F H 10/06/24 17:21 Pulse Rate 116 H 10/06/24 20:34 Respiratory Rate 18 10/06/24 20:34 Blood Pressure 92/62 10/06/24 20:34 Pulse Oximetry 100 10/06/24 20:34 Oxygen Delivery Me thod Room Air 10/06/24 20:34 MDM - Nausea/Vomiting/Diarrhea Medical Decision Making 29-year-old female comes in today with illness x 2 days. Patient reports her son is also been ill. Patient appears unwell but not toxic. Skin is warm and dry. Vital signs have some elevated heart rate in 118's, and a temperature of 101. Differential diagnosis includes but not limited to viral syndrome, dehydration, influenza, urinary tract infection, gastroenteritis, appendicitis. Patient was positive for influenza A. Patient's CMP noted a sodium of 134, potassium 3.4, creatinine 1.1, and anion gap of 22.4. CBC was unremarkable. Patient was dehydrated was given 2 L IV fluids and some Zofran and acetaminophen. Patient has significant improvement of symptoms. Patient be discharged home on a dancer Gavin and encouragement to drink plenty of fluids. Patient stated understanding agreed to plan. Lab Data 10/06/24 20:15 10/06/24 20:15 Laboratory Results WBC 5.84 10^3/uL (3.29-11.43) 10/06/24 20:15 RBC 4.03 10^6/uL (3.85-5.65) 10/06/24 20:15 Hgb 12.20 g/dL (11.27-16.99) 10/06/24 20:15 Hct 36.7 % (36-47) 10/06/24 20:15 MCV 91.1 fl (85-98) 10/06/24 20:15 MCH 30.3 pg (27-33) 10/06/24 20:15 MCHC 33.2 g/dL (30-55) 10/06/24 20:15 RDW 12.1 % (12.1-15.1) 10/06/24 20:15 Plt Count 197 10^3/cmm (157-399) 10/06/24 20:15 MPV 10.3 fL (7.4-10.4) 10/06/24 20:15 Neut % (Auto) 85.8 % 10/06/24 20:15 Lymph % (Auto) 2.6 % 10/06/24 20:15 Leon % (Auto) 10.8 % 10/06/24 20:15 Eos % (Auto) 0.0 % 10/06/24 20:15 Baso % (Auto) 0.3 % 10/06/24 20:15 Neut # (Auto) 5.01 10^3/uL (1.8-7.7) 10/06/24 20:15 Lymph # (Auto) 0.2 10^3/uL (0.8-4.8) L 10/06/24 20:15 Leon # (Auto) 0.6 10^3/uL (0.2-0.9) 10/06/24 20:15 Eos # (Auto) 0.0 10^3/uL (0.0-0.8) 10/06/24 20:15 Baso # (Auto) 0.0 10^3/uL (0.0-0.1) 10/06/24 20:15 Nucleated RBC % (auto) 0 % 10/06/24 20:15 Nucleated RBCs # 0.0 /100WBC 10/06/24 20:15 Sodium 134 mmol/L (136-145) L 10/06/24 20:15 Potassium 3.4 mmol/L (3.5-5.1) L 10/06/24 20:15 Chloride 99 mmol/L (98-107) 10/06/24 20:15 Carbon Dioxide 16 mmol/L (22-29) L 10/06/24 20:15 Anion Gap 22.4 (5-19) H 10/06/24 20:15 BUN 18 mg/dL (6-20) 10/06/24 20:15 Creatinine 1.1 mg/dL (0.5-0.9) H 10/06/24 20:15 GFR Calculation 58.7 mL/min (90-130) L 10/06/24 20:15 Glucose 123 mg/dL (65-115) H 10/06/24 20:15 Calculated Osmolality 281 mOsm/kg (285-295) L 10/06/24 20:15 Calcium 8.8 mg/dL (8.5-10.5) 10/06/24 20:15 Total Bilirubin 0.7 mg/dL (0.15-1.2) 10/06/24 20:15 AST 33 U/L (0-32) H 10/06/24 20:15 ALT 25 U/L (0-33) 10/06/24 20:15 Alkaline Phosphatase 60 U/L (35-105) 10/06/24 20:15 Total Protein 7.0 g/dL (6.6-8.7) 10/06/24 20:15 Albumin 4.4 g/dL (3.5-5.2) 10/06/24 20:15 Globulin 2.6 g/dL (1.3-4.6) 10/06/24 20:15 HCG, Qual Negative (Negative) 10/06/24 20:15 Amorphous Sediment Not Reportable 10/06/24 21:00 Coronavirus (PCR) Negative (Negative) 10/06/24 19:52 Influenza A (PCR) Positive (Negative) 10/06/24 19:52 Influenza Type B (PCR) Negative (Negative) 10/06/24 19:52 RSV (PCR) Negative (Negative) 10/06/24 19:52 No radiology studies performed this visit Discharge Plan Discharge Patient Disposition: Home Clinical Impression: Influenza A, Acute dehydration Condition: Stable Prescriptions: New ondansetron HCl 4 mg tablet 4 mg PO Q8H PRN (Reason: Nausea And Vomiting) 3 Days Qty: 9 0RF No Action ascorbic acid (vitamin C) [Vitamin C] 500 mg Tablet 250 mg PO DAILY Women's Multivitamin 18 mg iron-400 mcg-500 mg Tablet 1 tab PO DAILY Discharge Orders: Discharge ED (Routine); Ordered 10/06/24 Ordered By: Kit Rod Referrals: Arben Sigala MD [Primary Care Provider] - Discharge Diet: Advance as tolerated Discharge Activity: Increase activity as tolerated Patient Instructions: Influenza (ED) Activity Restrictions/Additional Instructions: Home and rest. Drink plenty of water and fluids. Use ondansetron as needed for nausea and vomiting. Make sure to take sips of water frequently to maintain hydration. Follow-up with primary care in 3 days for recheck. Return to ED for worsening symptoms. Stand Alone Forms: Work/School Release Coding Level of Care Code ED Wood Finisher Apprentice for Zach Moe
[2024-10-06 20:00] VITALS: BP 98/58; PULSE 118; RESP 18; O2SAT 100
[2024-10-06 20:25] LABS: Basophils % 0.3 %; Hematocrit 36.7 % (36-47); Lymphocytes # 0.2 10^3/uL (0.8-4.8); Lymphocytes % 2.6 %; Mean Corpuscular HGB Conc 33.2 g/dL (30-55); Mean Corpuscular Hemoglobin 30.3 pg (27-33); Mean Corpuscular Volume 91.1 fl (85-98); Mean Platelet Volume 10.3 fL (7.4-10.4); Monocytes # 0.6 10^3/uL (0.2-0.9); Monocytes % 10.8 %; Neutrophils # 5.01 10^3/uL (1.8-7.7); Neutrophils % 85.8 %; Nucleated Red Blood Cells % 0 %; Platelet Count 197 10^3/cmm (157-399); Red Blood Count 4.03 10^6/uL (3.85-5.65); Red Cell Distribution Width 12.1 % (12.1-15.1); White Blood Count 5.84 10^3/uL (3.29-11.43)
[2024-10-06] MEDS: acetaminophen 1,000 MG/100 ML PIGGYBACK 400 MG IV (20:29)
[2024-10-06] MEDS: lactated ringers 1,000 ML 999 ML IV (20:29)
[2024-10-06] MEDS: ondansetron 2 mg/ML SDV 2 mL 4 MG IVP (20:30)
[2024-10-06 20:33] LABS: HCG, Serum Qual Negative (Negative)
[2024-10-06 20:34] VITALS: BP 92/62; PULSE 116; RESP 18; O2SAT 100
[2024-10-06 20:39] LABS: Covid PCR NEGATIVE (Negative); Influenza A POSITIVE (Negative); Influenza B NEGATIVE (Negative); Respiratory Syncytial Virus Ce NEGATIVE (Negative)
[2024-10-06 20:46] LABS: Alanine Aminotransferase 25 U/L (0-33); Albumin Level 4.4 g/dL (3.5-5.2); Alkaline Phosphatase 60 U/L (35-105); Anion Gap 22.4 (5-19); Aspartate Amino Transferase 33 U/L (0-32); Blood Urea Nitrogen 18 mg/dL (6-20); Calcium 8.8 mg/dL (8.5-10.5); Carbon Dioxide 16 mmol/L (22-29); Chloride 99 mmol/L (98-107); Creatinine Clr Calc Pharmacy 75.3251; Globulin 2.6 g/dL (1.3-4.6); Glomerular Filtration Rate 58.7 mL/min (90-130); Glucose 123 mg/dL (65-115); Osmolality Calculated 281 mOsm/kg (285-295); Potassium 3.4 mmol/L (3.5-5.1); Sodium 134 mmol/L (136-145); Total Bilirubin 0.7 mg/dL (0.15-1.2)
[2024-10-06] MEDS: sodium chloride 0.9% 1,000 ML 999 ML IV (21:16)
[2024-10-06 21:22] LABS: Bilirubin Urine Negative (Negative); Blood Urine Negative (Negative); Glucose Urine UA Negative (Normal); Ketones Urine 3+ (Negative); Leukocyte Esterase Urine Negative (Negative); Nitrate Urine Negative (Negative); Protein Urine 1+ (Negative); Urine Appearance Clear (CLEAR); Urine Color Dark Yellow (Yellow); pH Urine 8.5 (5-7)
[2024-10-06 21:28] LABS: Add Urine Microscopic? YES; Bacteria Urine None Seen /hpf; Hyaline Casts Urine 4.52 /lpf; Squamous Epithelial Cell Urine 0-5 /hpf (0-5)
[2024-10-06 21:36] LABS: Specific Gravity, Urine 1.036 (1.005-1.030)
[2024-10-06 21:54] VITALS: BP 98/61; PULSE 85; RESP 16; O2SAT 96
[2024-10-06 22:55] VITALS: BP 100/70; PULSE 85; RESP 16; O2SAT 100
== END 2024-10-06 22:54 | disposition home or self-care (01) ==
PROVIDERS: Emergency Provider Nurse Practitioner Family
DX: J10.1 Influenza due to other identified influenza virus with other respiratory manifestations (principal); E86.0 Dehydration; Z11.52 Encounter for screening for COVID-19
CPT/HCPCS: 36415; 80053; 81001; 84703; 85025; 87637; 96365; 96375; 99284; J0131; J2405; J7030; J7120

== ENCOUNTER → 2025-05-13 12:30 | Outpatient (BNVA) | payer MEDICAID, SELFPAY | PROVIDERS: Visit Provider Registered Nurse Neonatal Intensive Care | DX: M79.672 Pain in left foot (principal); M25.572 Pain in left ankle and joints of left foot | CPT/HCPCS: 73610; 73630 ==

== ENCOUNTER 2025-06-03 07:38 | Emergency (ER) | payer MEDICAID, SELFPAY ==
--- OUTSIDE RECORDS SUMMARY | 2024-05-29 06:00 | XMS_ITS ---
Author Organization [facility] Accounts Recei vable Address [address] [place] [address] Care Team Providers Care Front Services Agent Name Role Phone Micah Ragsdale Unavailable [phone] Lopez Lee Unavailable REASON FOR VISIT ape Social History Sex Assigned At : Social History Observation Description Sex Assigned At Female Encounters Encounter Location Date Provider Diagnosis [address] [address] 05/29/2024 Lopez Lee Plan Of Treatment Next Appt Details Provider Name:Carol Jaquez 08:00:00 AM, [address] [place] [address], [address], Progress Notes * Janet JOHNSONDOB:1994 (30 yo F)Acc No.[id number]:05/29/2024 Patient: Janet ESPINOZA Provider: Lissy Serrato RDH :1995 A ge:29 Y S ex:Female Date:05/29/2024 Address:[address] [place] [address] [address], [facility] Patient's Default Facility:[facility] Subjective: * Chief Complaints: * 1 . Ape. * Medical History: Objective: * Vitals: Assessment: Plan: * Treatment: * Billing Information: * Visit Code: * Procedure Codes: * Electronic signature of Quinn Lee RDH on 06/03/2025 at 07:48 AM CDT Sign off status: Pending * Provider: Lissy Serrato RDH Date: 0 05/29/2024 Generated for Sammie tubbs/Danyelle/Shi on: 0 06/03/2025 07:48 AM CDT
--- OUTSIDE RECORDS SUMMARY | 2025-01-10 03:00 | XMS_ITS ---
Author Organization [facility] Accounts Recei vable Address [address] [place] [address] Care Team Providers Care Entry Level Installation Technician Name Role Phone Micah Ragsdale Unavailable [phone] Brody Spring Unavailable [phone] REASON FOR VISIT comp, xr, reeval tx.plp Social History Sex Assigned At : Social History Observation Description Sex Assigned At Female Encounters Encounter Location Date Provider Diagnosis [address] [address] 01/10/2025 Spring Skinner Plan Of Treatment Next Appt Details Provider Name:Carrie Younger, Carol 08:00:00 AM, [address] [place] [address], [address], Progress Notes * Janet JOHNSONDOB:1994 (30 yo F)Acc No.[id number]:01/10/2025 Progress Note Patient: Andrews GALDINOSAUDJanet Provider: Kostas Skinner RDH :1995 A ge:29 Y S ex:Female Date:01/10/2025 Address:[address] [place] [address] [address], [facility], [place] Patient's Default Facility:[facility] Subjective: * Chief Complaints: * 1 . Comp, xr, reeval tx.plp. * Medical History: Objective: * Vitals: Assessment: Plan: * Treatment: * Billing Information: * Visit Code: * Procedure Codes: * Electronic signature of Spring Skinner RDH on 06/03/2025 at 07:49 AM CDT Sign off status: Pending * Provider: Kostas Skinner RDH Date: 0 01/10/2025 Generated for Sammie tubbs/Danyelle/Shi on: 0 06/03/2025 07:49 AM CDT
--- OUTSIDE RECORDS SUMMARY | 2025-06-03 07:49 | XMS_ITS | Patient Health Record ---
Author Organization [facility] Accounts Recei vable Address [address] [place] [address] Care Team Providers Care Cash Crop Farmer Name Role Phone Micah Ragsdale Unavailable [phone] Spring Skinner Unavailable [phone] Carrie Younger Unavailable [phone] Allergies Allergen (clinical drug ingredient) Drug/Non Drug Allergy documented on EMR Reaction Allergy Type Onset Date Status escitalopram Lexapro (uncoded) Unknown Allergy Active sertraline Zoloft (uncoded) Unknown Allergy Ac tive Reason For Referral No Information Medications Medication SIG (Take, Route, Frequency, Duration) Notes Start Date End Date Status Zantac Not-Taking Iron Not-Taking HYDROcodone-Acetaminophe n 5-325 MG 1 tablet as needed Orally every 6 hrs for 5 days 03/30/2021 Not-Taking Cymbalta Not-Taking Vitamin B12 Active Allergy 24-HR Not-Ta Social History Sex Assigned At : Social History Observation Description Sex Assigned At Female Problems Problem Type SNOMED Code ICD Code Onset Dates Problem Status W/U Status Risk Notes Problem Screening for malignant neoplasm of the oral cavity (V76.42) Active confirmed Problem Toothache (finding) (57528814) Tooth pain (K08.89) Active confirmed Problem At high risk for dental caries (finding) (803178709) Risk for dental caries, high (Z91.843) Active confirmed Vital Signs Heart Rate 74 Minute 04/11/2025 Blood pressure diastolic 69 mm Hg 04/11/2025 Height 65 in 04/11/2025 Blood pressure systolic 107 mm Hg 04/11/2025 Weight 171.6 lbs 04/11/2025 BMI 28.55 kg/m2 04/11/2025 Encounters Encounter Location Date Provider Diagnosis [facility] [address] [address] 07/29/2024 Abu Hasme Tooth pain K08.[address] [address] 03/13/2025 Carrie Younger Tooth pain K08.[address] [address] 04/11/2025 [facility] Assessments Encounter Date Diagnosis (ICD Code) Assessment Notes Treatment Notes Treatment Clinical Notes 07/29/2024 Tooth pain (ICD-10 - K08.89) 03/13/2025 Tooth pain (ICD-10 - K08.89) 07/29/2024 Other [facility]: Care Instructions material was printed 03/13/2025 Other [facility]: Care Instructions material was printed 04/11/2025 Other [facility]: Care Instructions material was printed Plan Of Treatment Next Appt Details Provider Name:Carrie Younger, 1 08:00:00 AM, [address] [place] [address], [phone], Insurance Providers Payer Name Payer Address Payer Phone Subscriber Number Group Number Insured Name Patient Relationship to Insured Coverage Start Date Coverage End Date [employer] [address] [place], [place] [phone] [id number] Janet Johnson Self - patient is the insured Medical (General) History Medical History History ICD Code Allergies ADD\ ADHD astma Anxeity and Depression Surgical History Surgery Date(Month/Year) C section Tub tied Gallbladder Hospitalization History Reason Date(Month/Year) see above
--- OUTSIDE RECORDS SUMMARY | 2025-06-03 07:50 | XMS_ITS | Patient Health Record ---
Author Organization [facility] Address [address] [place] [address] Care Team Providers Care Buyer Agent Name Role Phone Arben Sigala MD Primary Care Provider UnavailBeena Hightower Unavailable [phone] Allergies Allergen (clinical drug ingredient) Drug/Non Drug Allergy documented on EMR Reaction Allergy Type Onset Date Status escitalopram Escitalopram Unknown Drug Allergy A ctive sertraline Sertraline Unknown Drug Allergy Activ e Reason For Referral No Information Medications Medication SIG (Take, Route, Frequency, Duration) Notes Start Date End Date Status DULoxetine HCl 30 MG Capsule Delayed Release Particles 1 capsule daily for 1 week then increase to 2 capsules daily Orally Once a day; Duration: 30 day(s) Activ e Immunizations Vaccine Route Administration Date Status Comme nts Influenza (whole), CPT 12261 Inactive Unknown 02/28/2019 Administered Influenza (whole), CPT 20336 Inactive Unknown 06/17/2019 Administered Social History Tobacco Use: Social History Observation Description Date Details (start date - stop date) Never Smoker NA - NA Social History Depression Screening Social Info Question Answer Notes PHQ-9 Little interest or pleasure in doing thin gs Several days Feeling down, depressed, or hopeless Several day s Trouble falling or staying asleep, or sleeping t oo much Several days Feeling tired or having little energy Several da ys Poor appetite or overeating Several days Feeling bad about yourself, or that you are a failure, or have let yourself or your family down Several days Trouble concentrating on thi ngs, such as reading the newspaper or watching television Several days Moving or speaking so slowly that other people could have noticed. Or the opposite ? being so fidgety or restless that you have been moving around a lot more than usual Not at all Thoughts that you would be b kelly off , or of hurting yourself in some way Not at all Total Score 7 Interpretation Mild Depression Drugs/Alcohol: Social Info Question Answer Notes Alcohol Screen (Audit-C) Did you have a drink containing alcohol in the past year? No Points 0 Interpretation Negative Drugs Have you used drugs other than those for medical reasons in the past 12 months? No Tobacco Use: Social Info Question Answer Notes xTobacco Use/Smoking Are you a nonsmoker Additional Details Category Social Info Options Details zzMigrated Social History Migrated Social History Smoking Status:Never smoked tobacco (finding) Problems Problem Type SNOMED Code ICD Code Onset Dates Problem Status W/U Status Risk Notes Problem visit (672182457) Encounter for routine follow-up (Z39.2) Active confirmed Problem Depression (541326614) Other depression (F32.89) Active confirmed Problem Gastroesophageal reflux disease (484359296) Gastroesophageal reflux disease, unspecified whether esophagitis present (K21.9) Active confirmed Plan Of Treatment No Information Insurance Providers Payer Name Payer Address Payer Phone Subscriber Number Group Number Insured Name Patient Relationship to Insured Coverage Start Date Coverage End Date [place] [address] [place] [phone] [id number] Janet Fisher Self - patient is the insured Medical (General) History Medical History History ICD Code Asthma Closed fracture of distal phalanx of fin calli Irregular periods Anemia Anxiety Chronic depression Irritable colon anxiety Surgical History Surgery Date(Month/Year) Cholecystectomy 2015 section 2018 Bilateral tubal ligation 09/25/2019 Hospitalization History Reason Date(Month/Year) see surgerys
[2025-06-03 07:51] VITALS: BP 128/75; PULSE 99; RESP 16; TEMP 36.9; O2SAT 99; BMI 28.8
--- NOTE | 2025-06-03 07:54 | XR_ITS ---
WS: [id number] Exam: XR chest 1V portable [id number] Date/Time of Exam: 06/03/2025 7:58 AM Reason For Exam: dyspnea/cough Comparison 07/02/2023. The lungs are clear and fully inflated. Normal cardiomediastinal silhouette. No pleural effusion. Bony structures are intact. S-shaped thoracolumbar scoliosis. XR/XR chest 1V portable [id number] IMPRESSION: 1. No acute cardiopulmonary finding.
--- NOTE | 2025-06-03 08:01 | W.ED.GENADLT ---
HPI - General Adult General: Chief complaint: General Medical Stated complaint: N/V/D Time Seen by Provider: 06/03/25 07:40 History of Present Illness: 30-year-old female presents emergency room with complaint of general flulike symptoms for the last week. Her boyfriend and 1 other close friend tested positive for COVID. She is complaining of nonproductive cough headache and sore throat myalgias subjective low-grade fever. Associated symptoms: Reports dyspnea, malaise, nausea and vomiting; Deny chest pain or rash Related Data Home Medications ?Medication ?Instructions ?Recorded ?Confirmed ascorbic acid (vitamin C) 500 mg 250 mg PO DAILY 08/04/24 05/13/25 tablet (Vitamin C) xkatvdmr-ony-vdlv-FA-Ca carb-vit K 1 tab PO DAILY 08/04/24 05/13/25 18 mg iron-400 mcg-500 mg tablet mecobalamin (vitamin B12) 1,000 1,000 mcg PO DAILY 05/13/25 05/13/25 mcg chewable tablet (B12 Active) Previous Rx's ?Medication ?Instructions ?Recorded metoclopramide HCl 10 mg tablet 10 mg PO Q6H PRN nausea and 06/03/25 (Reglan) vomiting #14 tabs Allergies Allergy/AdvReac Type Severity Reaction Status Date / Time escitalopram (From Lexapro) Allergy ADR-Seizure Verified 10/06/24 17:21 sertraline (From Zoloft) Allergy ADR-Seizure Verified 10/06/24 17:21 Review of Systems Const: Reports: fever(s), chills, body aches, fatigue and malaise Card: Denies: chest pain Resp: Reports: dyspnea and non-productive cough GI: Reports: nausea, vomiting and diarrhea; Denies: abdominal pain : Denies: dysuria, urinary frequency or urinary urgency Musc: Denies: neck pain or back pain Skin/Breast: Denies: rash PFSH ED PFSH: Medical History History of anemia Acid reflux Depression Anxiety IBS (irritable bowel syndrome) Insomnia Asthma Anemia Surgical History History of bilateral tubal ligation History of History of cholecystectomy Family History Grandmother Cancer Maternal-brain Mother Cancer breast/cervical Family/Other Cancer Maternal aunt-breast/cervical Family/Other Cancer, Onset Age: 4 Maternal fzsgf-ejkbyfhy-hrfuxj away d/t this Brother Psychiatric illness Sister Psychiatric illness Sister Psychiatric illness Other Bleeding disorder Diabetes Hypertension Lung disease Stroke Denies family history of CAD (coronary artery disease) Clotting disorder Dementia Hyperlipidemia Chronic kidney disease (CKD) Anesthesia complication Social History Smoking and tobacco/nicotine status: never used tobacco/nicotine Alcohol intake: never Substance/Drug Use: never Lives independently: Yes Marital status: Number of children: 5 Current occupational status: disabled Rosalind/Yarsanism: Pentecostal Special rosalind needs: No Agree to transfusion: Yes Physical Exam Const: COMMON NORMALS: no acute distress GENERAL APPEARANCE: cooperative ORIENTATION/CONSCIOUSNESS: Yes awake, Yes oriented to person, Yes oriented to place and Yes oriented to time HENMT: COMMON NORMALS: normocephalic, atraumatic and hearing grossly normal bilaterally HEAD & SCALP: normocephalic and atraumatic Resp: COMMON NORMALS: normal respiratory effort, No retractions, No use of accessory muscles and clear to auscultation bilaterally AUSCULTATION: clear to auscultation bilaterally Cardio: COMMON NORMALS: regular rate, regular rhythm and No murmurs present (Cardio) RATE: regular rate RHYTHM: regular rhythm GI: COMMON NORMALS: Soft to palpation and No hepatosplenomegaly present AUSCULTATION: Yes normoactive bowel sounds PALPATION: Yes Soft to palpation, No Tenderness to palpation present (GI), No Guarding due to palpation present (GI) and Yes No hepatosplenomegaly present Extremity: COMMON NORMALS: normal to inspection, capillary refill normal, no clubbing, cyanosis or edema, no calf tenderness and no pedal edema Neuro: SENSORIUM/ORIENTATION: Yes oriented to person, Yes oriented to place and Yes oriented to time Skin: COMMON NORMALS: no rashes or lesions noted GENERAL SKIN EXAM: no rashes or lesions noted Course Vital Signs: Vital signs: Vital Signs Temperature 98.4 F 06/03/25 07:51 Pulse Rate 99 06/03/25 07:51 Respiratory Rate 16 06/03/25 07:51 Blood Pressure 128/75 06/03/25 07:51 Pulse Oximetry 99 06/03/25 07:51 Oxygen Delivery Me thod Room Air 06/03/25 07:51 MDM - General Adult Medical Decision Making Patient received a phone call report stating her son had some kind of emergency she wanted to leave immediately she discharged home with antiemetics to use as needed COVID test is still pending based on her presenting symptoms and complaints suspect she does have COVID. If it is negative she likely has some other viral illness care would still be supportive. Medical Records I reviewed the patient's medical records. Lab Data I reviewed the patient's lab results. 06/03/25 07:57 06/03/25 07:57 Radiology Impressions Chest X-Ray 06/03/25 07:54 IMPRESSION: 1. No acute cardiopulmonary finding. Laboratory Results WBC 7.12 10^3/uL (3.29-11.43) 06/03/25 07:57 RBC 4.15 10^6/uL (3.85-5.65) 06/03/25 07:57 Hgb 12.60 g/dL (11.27-16.99) 06/03/25 07:57 Hct 38.2 % (36-47) 06/03/25 07:57 MCV 92.0 fl (85-98) 06/03/25 07:57 MCH 30.4 pg (27-33) 06/03/25 07:57 MCHC 33.0 g/dL (30-55) 06/03/25 07:57 RDW 12.4 % (12.1-15.1) 06/03/25 07:57 Plt Count 194 10^3/cmm (157-399) 06/03/25 07:57 MPV 9.9 fL (7.4-10.4) 06/03/25 07:57 Neut % (Auto) 66.3 % 06/03/25 07:57 Lymph % (Auto) 20.1 % 06/03/25 07:57 [place] % (Auto) 10.3 % 06/03/25 07:57 Eos % (Auto) 2.4 % 06/03/25 07:57 Baso % (Auto) 0.6 % 06/03/25 07:57 Neut # (Auto) 4.73 10^3/uL (1.8-7.7) 06/03/25 07:57 Lymph # (Auto) 1.4 10^3/uL (0.8-4.8) 06/03/25 07:57 [place] # (Auto) 0.7 10^3/uL (0.2-0.9) 06/03/25 07:57 Eos # (Auto) 0.2 10^3/uL (0.0-0.8) 06/03/25 07:57 Baso # (Auto) 0.0 10^3/uL (0.0-0.1) 06/03/25 07:57 Nucleated RBC % (auto) 0 % 06/03/25 07:57 Nucleated RBCs # 0.0 /100WBC 06/03/25 07:57 Sodium 139 mmol/L (136-145) 06/03/25 07:57 Potassium 3.9 mmol/L (3.5-5.1) 06/03/25 07:57 Chloride 103 mmol/L (98-107) 06/03/25 07:57 Carbon Dioxide 26 mmol/L (22-29) 06/03/25 07:57 Anion Gap 13.9 (5-19) 06/03/25 07:57 BUN 14 mg/dL (6-20) 06/03/25 07:57 Creatinine 0.9 mg/dL (0.5-0.9) 06/03/25 07:57 GFR Calculation 73.5 mL/min (90-130) L 06/03/25 07:57 Glucose 93 mg/dL (65-115) 06/03/25 07:57 Calculated Osmolality 288 mOsm/kg (285-295) 06/03/25 07:57 Calcium 9.1 mg/dL (8.5-10.5) 06/03/25 07:57 Total Bilirubin 0.6 mg/dL (0.15-1.2) 06/03/25 07:57 AST 20 U/L (0-32) 06/03/25 07:57 ALT 21 U/L (0-33) 06/03/25 07:57 Alkaline Phosphatase 68 U/L (35-105) 06/03/25 07:57 Total Protein 7.1 g/dL (6.6-8.7) 06/03/25 07:57 Albumin 4.5 g/dL (3.5-5.2) 06/03/25 07:57 Globulin 2.6 g/dL (1.3-4.6) 06/03/25 07:57 HCG, Qual Negative (Negative) 06/03/25 07:57 Urine Color Yellow (Yellow) 06/03/25 08:03 Urine Appearance Clear (CLEAR) 06/03/25 08:03 Urine pH 7.5 (5-7) 06/03/25 08:03 Ur Specific [place] 1.004 (1.005-1.030) L 06/03/25 08:03 Urine Protein Negative (Negative) 06/03/25 08:03 Urine Glucose (UA) Negative (Normal) 06/03/25 08:03 Urine Ketones Negative (Negative) 06/03/25 08:03 Urine Blood Negative (Negative) 06/03/25 08:03 Urine Nitrate Negative (Negative) 06/03/25 08:03 Urine Bilirubin Negative (Negative) 06/03/25 08:03 Urine Urobilinogen 0.2 mg/dL (Negative) 06/03/25 08:03 Ur Leukocyte Esterase Negative (Negative) 06/03/25 08:03 Urine RBC 0-2 /hpf (0-2) 06/03/25 08:03 Urine WBC 0-5 /hpf (0-5) 06/03/25 08:03 Ur Squamous Epith Cells 0-5 /hpf (0-5) 06/03/25 08:03 Amorphous Sediment Not Reportable 06/03/25 08:03 Urine Bacteria None seen /hpf (NONE) 06/03/25 08:03 Hyaline Casts 0-4 /lpf H 06/03/25 08:03 Influenza A (PCR) Negative (Negative) 06/03/25 08:03 Influenza Type B (PCR) Negative (Negative) 06/03/25 08:03 RSV (PCR) Negative (Negative) 06/03/25 08:03 SARS-CoV-2 (PCR) Negative (Negative) 06/03/25 08:03 All radiology interpretation(s) finalized by discharge Discharge Plan Discharge Patient Disposition: Home Clinical Impression: Suspected COVID-19 virus infection Condition: Stable Prescriptions: No Action mecobalamin (vitamin B12) [B12 Active] 1,000 mcg tablet,chewable 1,000 mcg PO DAILY ascorbic acid (vitamin C) [Vitamin C] 500 mg Tablet 250 mg PO DAILY Women's Multivitamin 18 mg iron-400 mcg-500 mg Tablet 1 tab PO DAILY metoclopramide HCl [Reglan] 10 mg tablet 10 mg PO Q6H PRN (Reason: nausea and vomiting) Qty: 14 0RF Discharge Orders: Discharge ED (Routine); Ordered 06/03/25 Ordered By: Cornelius Henry Referrals: Arben Sigala MD [Primary Care Provider, [facility]] Discharge Diet: Usual diet Discharge Activity: Resume usual activity Patient Instructions: Opioid Safety, Pain Management, Patient Portal & Kelly Instructions Activity Restrictions/Additional Instructions: [facility]. It is very important that you follow up as instructed or that you return to the Emergency Department should you have concerns or if your condition changes or worsens in any way. Emergency department visits are focused on emergent conditions, in some cases you may require further evaluation on an outpatient basis. You were seen in the emergency room with complaints of upper respiratory symptoms suggestive of COVID. Given your history of exposure to COVID this most likely is COVID. You were discharged home at your request but due to family emergency. Your vital signs and initial labs that were completed while you are still here were normal. (Please note that included in your discharge packet is information concerning opioid safety and pain management. This information is given to all patients were discharged from the ER regardless of their discharge diagnosis or the medicines they usually take or are prescribed.) Print Language: Mauritanian Coding Level of Care Code ED Set And Exhibit Designer for Zach Moe
[2025-06-03 08:02] LABS: Hematocrit 38.2 % (36-47); Hemoglobin 12.60 g/dL (11.27-16.99); Mean Corpuscular HGB Conc 33.0 g/dL (30-55); Mean Corpuscular Hemoglobin 30.4 pg (27-33); Mean Corpuscular Volume 92.0 fl (85-98); Nucleated Red Blood Cells % 0 %; Platelet Count 194 10^3/cmm (157-399); Red Blood Count 4.15 10^6/uL (3.85-5.65); White Blood Count 7.12 10^3/uL (3.29-11.43)
[2025-06-03 08:15] LABS: Glucose Urine UA Negative (Normal); Nitrate Urine Negative (Negative); Specific Gravity, Urine 1.004 (1.005-1.030)
[2025-06-03 08:20] LABS: Add Urine Microscopic? YES
[2025-06-03 08:21] LABS: Alanine Aminotransferase 21 U/L (0-33); Albumin Level 4.5 g/dL (3.5-5.2); Alkaline Phosphatase 68 U/L (35-105); Anion Gap 13.9 (5-19); Aspartate Amino Transferase 20 U/L (0-32); Blood Urea Nitrogen 14 mg/dL (6-20); Calcium 9.1 mg/dL (8.5-10.5); Carbon Dioxide 26 mmol/L (22-29); Chloride 103 mmol/L (98-107); Creatinine Clr Calc Pharmacy 94.6376; Globulin 2.6 g/dL (1.3-4.6); Glucose 93 mg/dL (65-115); Osmolality Calculated 288 mOsm/kg (285-295); Potassium 3.9 mmol/L (3.5-5.1); Sodium 139 mmol/L (136-145); Total Protein 7.1 g/dL (6.6-8.7)
[2025-06-03 08:22] LABS: HCG, Serum Qual Negative (Negative)
[2025-06-03 08:48] LABS: Respiratory Syncytial Virus Ce NEGATIVE (Negative); SARS-CoV-2 PCR NEGATIVE (Negative)
== END 2025-06-03 08:39 | disposition home or self-care (01) ==
PROVIDERS: Emergency Provider Family Medicine
DX: Z20.822 Contact with and (suspected) exposure to COVID-19 (principal); Z11.52 Encounter for screening for COVID-19
CPT/HCPCS: 36415; 71045; 80053; 81001; 84703; 85025; 87637; 96374; 96375; 99284; J0780; J1885; J7030

== ENCOUNTER 2025-06-03 10:25 | Emergency (ER) | payer MEDICAID, SELFPAY ==
[2025-06-03 10:25] VITALS: BP 101/78; PULSE 119; RESP 16; TEMP 36.8; O2SAT 96; BMI 26.6
--- NOTE | 2025-06-03 10:30 | W.ED.GENADLT ---
HPI - General Adult General: Chief complaint: Anxiety Stated complaint: anxiety - sob Time Seen by Provider: 06/03/25 10:29 History of Present Illness: 30-year-old female seen earlier today she is given Compazine and Toradol for headache she has good exposure to COVID her symptoms were consistent with COVID. She had opted to leave before her results came back because she had a family emergency. Now she has developed some anxiety talking to her she has some jitteriness especially in her legs and I suspect some of this is from the Compazine. She did not have any difficulty breathing. Her headache is resolved. She still is somewhat nauseous. Associated symptoms: Reports nausea and vomiting; Deny chest pain, dyspnea or rash Related Data Home Medications ?Medication ?Instructions ?Recorded ?Confirmed ascorbic acid (vitamin C) 500 mg 250 mg PO DAILY 08/04/24 05/13/25 tablet (Vitamin C) hqwmrnne-sdb-dpps-FA-Ca carb-vit K 1 tab PO DAILY 08/04/24 05/13/25 18 mg iron-400 mcg-500 mg tablet mecobalamin (vitamin B12) 1,000 1,000 mcg PO DAILY 05/13/25 05/13/25 mcg chewable tablet (B12 Active) Previous Rx's ?Medication ?Instructions ?Recorded metoclopramide HCl 10 mg tablet 10 mg PO Q6H PRN nausea and 06/03/25 (Reglan) vomiting #14 tabs Allergies Allergy/AdvReac Type Severity Reaction Status Date / Time escitalopram (From Lexapro) Allergy ADR-Seizure Verified 10/06/24 17:21 sertraline (From Zoloft) Allergy ADR-Seizure Verified 10/06/24 17:21 Review of Systems Const: Denies: fever(s) or chills ENMT: Reports: throat pain and hoarseness Card: Denies: chest pain Resp: Denies: dyspnea GI: Reports: nausea, vomiting and diarrhea; Denies: abdominal pain : Denies: dysuria, urinary frequency or urinary urgency Musc: Denies: neck pain or back pain Skin/Breast: Denies: rash PFSH ED PFSH: Medical History History of anemia Acid reflux Depression Anxiety IBS (irritable bowel syndrome) Insomnia Asthma Anemia Surgical History History of bilateral tubal ligation History of History of cholecystectomy Family History Grandmother Cancer Maternal-brain Mother Cancer breast/cervical Family/Other Cancer Maternal aunt-breast/cervical Family/Other Cancer, Onset Age: 4 Maternal hpezu-fepjqahw-ctgwwx away d/t this Brother Psychiatric illness Sister Psychiatric illness Sister Psychiatric illness Other Bleeding disorder Diabetes Hypertension Lung disease Stroke Denies family history of CAD (coronary artery disease) Clotting disorder Dementia Hyperlipidemia Chronic kidney disease (CKD) Anesthesia complication Social History Smoking and tobacco/nicotine status: never used tobacco/nicotine Alcohol intake: never Substance/Drug Use: never Lives independently: Yes Marital status: Number of children: 5 Current occupational status: disabled Rosalind/Scientologist: Restorationist Special rosalind needs: No Agree to transfusion: Yes Physical Exam Const: GENERAL APPEARANCE: cooperative ORIENTATION/CONSCIOUSNESS: Yes awake, Yes oriented to person, Yes oriented to place and Yes oriented to time HENMT: COMMON NORMALS: normocephalic, atraumatic and hearing grossly normal bilaterally HEAD & SCALP: normocephalic and atraumatic Resp: COMMON NORMALS: normal respiratory effort, No retractions, No use of accessory muscles and clear to auscultation bilaterally AUSCULTATION: clear to auscultation bilaterally Cardio: COMMON NORMALS: regular rate, regular rhythm and No murmurs present (Cardio) RATE: regular rate RHYTHM: regular rhythm GI: COMMON NORMALS: Soft to palpation and No hepatosplenomegaly present AUSCULTATION: Yes normoactive bowel sounds PALPATION: Yes Soft to palpation, No Tenderness to palpation present (GI), No Guarding due to palpation present (GI) and Yes No hepatosplenomegaly present Extremity: COMMON NORMALS: normal to inspection, capillary refill normal, no clubbing, cyanosis or edema, no calf tenderness and no pedal edema Neuro: SENSORIUM/ORIENTATION: Yes oriented to person, Yes oriented to place and Yes oriented to time Skin: COMMON NORMALS: no rashes or lesions noted GENERAL SKIN EXAM: no rashes or lesions noted Course Vital Signs: Vital signs: Vital Signs Temperature 98.2 F 06/03/25 10:25 Pulse Rate 81 06/03/25 12:46 Respiratory Rate 16 06/03/25 10:25 Blood Pressure 111/73 06/03/25 12:46 Pulse Oximetry 97 06/03/25 12:46 Oxygen Delivery Me thod Room Air 06/03/25 10:25 MDM - General Adult Medical Decision Making Patient received a phone call that her son had some kind of the emergency and she needed to leave immediately. He was discharged home when given her Toradol and Compazine for headache. She now returned complaining of jitteriness and anxiety suspect the Compazine may have played a role in it. She is given Benadryl which did provide some relief she still complaining of some nausea. She was then given Ativan for nausea had relatively good improvement. Will discharge her home on Reglan to use as needed and have her follow-up with her primary care doctor. Medical Records I reviewed the patient's medical records. Lab Data I reviewed the patient's lab results. No radiology studies performed this visit Discharge Plan Discharge Patient Disposition: Home Clinical Impression: Gastroenteritis, Anxiety Condition: Stable Prescriptions: New metoclopramide HCl [Reglan] 10 mg tablet 10 mg PO Q6H PRN (Reason: nausea and vomiting) Qty: 14 0RF No Action mecobalamin (vitamin B12) [B12 Active] 1,000 mcg tablet,chewable 1,000 mcg PO DAILY ascorbic acid (vitamin C) [Vitamin C] 500 mg Tablet 250 mg PO DAILY Women's Multivitamin 18 mg iron-400 mcg-500 mg Tablet 1 tab PO DAILY Discharge Orders: Discharge ED (Routine); Ordered 06/03/25 Ordered By: Cornelius Henry Referrals: Arben Sigala MD [Primary Care Provider, Family Practice] Discharge Diet: Clear Liquid Discharge Activity: Increase activity as tolerated Patient Instructions: Opioid Safety, Pain Management, Patient Portal & Kelly Instructions Activity Restrictions/Additional Instructions: Thank you for choosing [facility] for your healthcare needs today. It is very important that you follow up as instructed or that you return to the Emergency Department should you have concerns or if your condition changes or worsens in any way. Emergency department visits are focused on emergent conditions, in some cases you may require further evaluation on an outpatient basis. Return to the emergency room with complaints of anxiety like issues as well as nausea and vomiting. Suspect some of the anxiety may have been precipitated by the Compazine you are given earlier given Benadryl IV you are also given ondansetron and finally Ativan for nausea vomiting. Recommend clear liquid diet advance as tolerated metoclopramide 1 tablet every 6 hours as needed for nausea and vomiting. (Please note that included in your discharge packet is information concerning opioid safety and pain management. This information is given to all patients were discharged from the ER regardless of their discharge diagnosis or the medicines they usually take or are prescribed.) Print Language: Hungarian Coding Level of Care Code ED Return Agent [place] for Zach Moe
[2025-06-03] MEDS: diphenhydrAMINE 50 mg/mL SDV 1mL IVP (10:56)
[2025-06-03] MEDS: ondansetron 2 mg/ML SDV 2 mL 4 MG IVP (11:34)
[2025-06-03] MEDS: LORazepam 1 MG/0.5 ML injection 2 MG IVP (12:15)
[2025-06-03 12:46] VITALS: BP 111/73; PULSE 81; O2SAT 97
== END 2025-06-03 12:47 | disposition home or self-care (01) ==
PROVIDERS: Emergency Provider Family Medicine
DX: K52.9 Noninfective gastroenteritis and colitis, unspecified (principal); F41.9 Anxiety disorder, unspecified
CPT/HCPCS: 96374; 96375; 99284; J1200; J2060; J2405

== ENCOUNTER 2025-06-11 16:24 | Outpatient (CLI) | payer MEDICAID, SELFPAY | END 2025-06-11 16:25 | disposition home or self-care (01) | LOC: LAB 16:26 | DX: R19.7 Diarrhea, unspecified (principal) | CPT/HCPCS: 87045; 87177; 87209; 87328; 87329; 87427; 87449 ==

== ENCOUNTER 2025-07-12 11:25 | Emergency (ER) | payer MEDICAID, SELFPAY ==
--- OUTSIDE RECORDS SUMMARY | 2024-02-06 03:00 | XMS_ITS ---
Author Organization [facility] Accounts Recei vable Address [address] [place] [address] Care Team Providers Care Perinatal Nurse Name Role Phone Micah Ragsdale Unavailable [phone] Spring Skinner Unavailable [phone] REASON FOR VISIT [email or web address] Social History Sex Assigned At : Social History Observation Description Sex Assigned At Female Encounters Encounter Location Date Provider Diagnosis [address] [address] 02/06/2024 Spring Skinner Plan Of Treatment No Information Progress Notes * Janet JOHNSONDOB:1994 (30 yo F)Acc No.[id number]:02/06/2024 Patient: Janet Thornton Provider: Kostas Skinner RDH :1995 A ge:28 Y S ex:Female Date:02/06/2024 Address:[address] [place] [address], [facility], [place] Patient's Default Facility:B [facility] Subjective: * Chief Complaints: * A pe.plp Billing Information: * Procedure Codes: * Electronic signature of Spring Skinner RDH on 07/12/2025 at 11:32 AM CDT Sign off status: Pending * Provider: Kostas Skinner RDH Date: 02/06/2024 Generated for Printi ng/Faxing/eTransmitting on: 09/11/2024 11:32 AM CDT
--- OUTSIDE RECORDS SUMMARY | 2024-05-29 06:00 | XMS_ITS ---
Author Organization [facility] Accounts Recei vable Address [address] [place] [address] Care Team Providers Care Sap Bods Developer Name Role Phone Micah Ragsdale Unavailable [phone] Lopez Lee Unavailable [phone] REASON FOR VISIT ape Social History Sex Assigned At : Social History Observation Description Sex Assigned At Female Encounters Encounter Location Date Provider Diagnosis [address] [address] 05/29/2024 Lopez Lee Plan Of Treatment No Information Progress Notes * Janet JOHNSONDOB:1994 (30 yo F)Acc No.[id number]:05/29/2024 Patient: Mikki Thorntonney Provider: Lissy Serrato RDH :1995 A ge:29 Y S ex:Female Date:05/29/2024 Address:[address] [place] [address], [facility], [place] Patient's Default Facility:B [facility] Subjective: * Chief Complaints: * A pe Billing Information: * Procedure Codes: * Electronic signature of Quinn Lee RDH on 07/12/2025 at 11:31 AM CDT Sign off status: Pending * Provider: Lissy Serrato RDH Date: 0 05/29/2024 Generated for Sammie tubbs/Danyelle/eTransmitting on: 09/11/2024 11:31 AM CDT
--- OUTSIDE RECORDS SUMMARY | 2025-01-10 03:00 | XMS_ITS ---
Author Organization [facility] Accounts Recei vable Address [address] [place] [address] Care Team Providers Care Lace Sewer Name Role Phone Micah Ragsdale Unavailable [phone] Spring Skinner Unavailable [phone] REASON FOR VISIT comp, xr, reeval tx.plp Social History Sex Assigned At : Social History Observation Description Sex Assigned At Female Encounters Encounter Location Date Provider Diagnosis [address] [address] 01/10/2025 Spring Skinner Plan Of Treatment No Information Progress Notes * Janet JOHNSONDOB:1994 (30 yo F)Acc No.[id number]:01/10/2025 Progress Note Patient: Janet Thornton Provider: Kostas Skinner RDH :1995 A ge:29 Y S ex:Female Date:01/10/2025 Address:[address] [place] [address] [address], [facility], [place] Patient's Default Facility:B [facility] Subjective: * Chief Complaints: * C omp, xr, reeval tx.plp * Electronic signature of Spring Skinner RDH on 07/12/2025 at 11:32 AM CDT Sign off status: Pending * Provider: Kostas Skinner RDH Date: 0 01/10/2025 Generated for Printi ng/Faxing/eTransmitting on: 1 09/11/2024 11:32 AM CDT
--- OUTSIDE RECORDS SUMMARY | 2025-06-13 03:00 | XMS_ITS ---
Author Organization [facility] Accounts Recei vable Address [address] [place] [address] Care Team Providers Care Diesel Mechanic Apprentice Name Role Phone Micah Ragsdale Unavailable [phone] ArenCarrie lopez Unavailable [phone] REASON FOR VISIT APE, BWX, PEX gn Social History Sex Assigned At : Social History Observation Description Sex Assigned At Female Encounters Encounter Location Date Provider Diagnosis [address] [address] 06/13/2025 Carrie Younger Plan Of Treatment No Information Progress Notes * Janet JOHNSONDOB:1994 (30 yo F)Acc No.[id number]:06/13/2025 Patient: Andrews Janet almonte Provider: Andrews Younger [facility] :1995 A ge:30 Y S ex:Female Date:06/13/2025 Address:[address] [place] [address] [address], [facility] Patient's Default Facility:B [facility] Subjective: * Chief Complaints: * A PE, BWX, PEX gn * Electronic signature of [facility] evita Younger on 07/12/2025 at 11:32 AM CDT Sign off status: Pending * Provider: Andrews Younger [facility] Date: Generated for Printi ng/Faxing/eTransmitting on: 09/11/2024 11:32 AM CDT
[2025-07-12 11:30] VITALS: BP 144/83; PULSE 136; RESP 24; TEMP 36.4; O2SAT 100; BMI 30.9
--- OUTSIDE RECORDS SUMMARY | 2025-07-12 11:32 | XMS_ITS | Patient Health Record ---
Author Organization [facility] Address [address] [place] [address] Care Team Providers Care Tube Coverer Name Role Phone Arben Sigala MD Primary Care Provider UnavailBeena Hightower Unavailable [phone] Allergies Allergen (clinical drug ingredient) Drug/Non Drug [...] Date Status Comme nts Influenza (whole), CPT 22807 Inactive Unknown 02/28/2019 Administered Influenza (whole), CPT 62137 Inactive Unknown 06/17/2019 Administered Social History Tobacco [...] Status W/U Status Risk Notes Problem visit (098554882) Encounter for routine follow-up (Z39.2) Active confirmed Problem Depression (809675104) Other depression (F32.89) Active confirmed Problem Gastroesophageal reflux disease (291946978) Gastroesophageal reflux disease, unspecified whether esophagitis present (K21.9) Active confirmed Plan Of Treatment No Information Insurance Providers Payer Name Payer Address Payer Phone Subscriber Number Group Number Insured Name Patient Relationship to Insured Coverage Start Date Coverage End Date [place] [address] [place] [address] [phone] [id number] Janet Fisher Self - patient is the insured Medical (General) History Medical History History ICD Code Asthma Closed fracture of distal phalanx of fin calli Irregular periods Anemia Anxiety Chronic depression Irritable colon anxiety Surgical History Surgery Date(Month/Year) Bilateral tubal ligation 09/25/2019 section 2018 Cholecystectomy 2015 Hospitalization History Reason Date(Month/Year) see surgerys
--- OUTSIDE RECORDS SUMMARY | 2025-07-12 11:32 | XMS_ITS | Patient Health Record ---
Author Organization [facility] Accounts Recei vable Address [address] [place] [address] Care Team Providers Care Network Internship Name Role Phone Micah Ragsdale Unavailable [phone] Spring Skinner Unavailable [phone] Carrie Younger Unavailable [phone] Allergies Allergen (clinical drug ingredient) Drug/Non Drug Allergy documented on EMR Reaction Allergy Type Onset Date Status escitalopram Lexapro (uncoded) Unknown Allergy Active sertraline Zoloft (uncoded) Unknown Allergy Ac tive Reason For Referral No Information Medications Medication SIG (Take, Route, Frequency, Duration) Notes Start Date End Date Status Zantac Not-Taking Iron Not-Taking HYDROcodone-Acetaminophe n 5-325 MG Tablet 1 tablet as needed Orally every 6 hrs; Duration: 5 days 03/30/2021 Not-Taking Cymbalta Not-Taking Vitamin B12 Active Allergy 24-HR Not-Ta Social History Sex Assigned At : Social History Observation Description Sex Assigned At Female Social History Social History Social Info Question Answer Notes Recreational Drug Use (12+) In the last year, did you ever use recreational drugs or prescription drugs for non-medical reasons?: No Date counseled on the affects of recreational dr ug use 04/03/2017 Date of Last PHQ-9 Date of Last PHQ 04/03/2017 Depression Screening PHQ-9 ( If positive PHQ-2) Little interest or pleasure doing things? Not at all Feeling down, depressed, or hopeless? Not at all Trouble falling or staying asleep, or sleeping t oo much? Not at all Feeling tired or having little energy? Not at al l Poor appetite or overeating? Not at all Feeling bad about yourself-o r that you are failure or have let yourself or family down? Not at all Trouble concentrating on thi ngs, such as reading the newspaper or watching television? Not at all Moving or speaking so slowly that other people could have noticed. Or the opposite- being so fidgety or restless that you have been moving around a lot more than usual Not at all Thoughts that you would be b kelly off , or of hurting yourself in some way? Not at all Total Score 0 Date of Last PHQ-2 (12+) Date of Last PHQ-2 07/05/2018 . History of physical abuse? No Date answered 04/03/2017 History of sexual abuse? No Date answered 04/03/2017 History of domestic violence No Date answered 04/03/2017 Are you a: former smoker How long has it been since you last smoked? > 10 years Did you have a drink containing alcohol in the p ast year? No Points 0 Interpretation Negative Have you had a dental visit within the last 6 mo nths? No Date answered 04/03/2017 PHQ2 (12+) Little interest or pleasure in doing thin gs? No Feeling down depressed or hopeless? No Problems Problem Type SNOMED Code ICD Code Onset Dates Problem Status W/U Status Risk Notes Problem Screening for malignant neoplasm of the oral cavity (V76.42) Active confirmed Problem Toothache (finding) (17017957) Tooth pain (K08.89) Active confirmed Problem At high risk for dental caries (finding) (179057654) Risk for dental caries, high (Z91.843) Active confirmed Vital Signs Heart Rate 74 Minute 04/11/2025 Blood pressure diastolic 69 mm Hg 04/11/2025 Height 65 in 04/11/2025 Blood pressure systolic 107 mm Hg 04/11/2025 Weight 171.6 lbs 04/11/2025 BMI 28.55 kg/m2 04/11/2025 Encounters Encounter Location Date Provider Diagnosis [address] [address] 03/13/2025 Carrie Aren Tooth pain K08.[address] [address] 04/11/2025 [place] [address] [place] [address] 07/29/2024 Micah Hasme Tooth pain K08.89 Assessments Encounter Date Diagnosis (ICD Code) Assessment Notes Treatment Notes Treatment Clinical Notes Section Notes 03/13/2025 Tooth pain (ICD-10 - K08.89) 07/29/2024 Tooth pain (ICD-10 - K08.89) 07/29/2024 Other A Healthy Lifestyle: Care Instructions material was printed 03/13/2025 Other A Healthy Lifestyle: Care Instructions material was printed 04/11/2025 Other A Healthy Lifestyle: Care Instructions material was printed Plan Of Treatment No Information Insurance Providers Payer Name Payer Address Payer Phone Subscriber Number Group Number Insured Name Patient Relationship to Insured Coverage Start Date Coverage End Date [employer] [facility] [facility] [employer] [address] [place] [address] [id number] Janet Johnson Self - patient is the insured Medical (General) History Medical History History ICD Code Allergies ADD\ ADHD astma Anxeity and Depression Surgical History Surgery Date(Month/Year) C section Tub tied Gallbladder Hospitalization History Reason Date(Month/Year) see above
--- NOTE | 2025-07-12 11:45 | ECG_ITS ---
Microtask Test Date: 2025-07-12 Pat Name: Janet Johnson Department: Room: Gender: Female Visitor Information Assistant: : 1995 Requested By: Cornelius Murray Order Number: [id number] Reading MD: TESS BARRETT Measurements Intervals [place] Rate: 141 P: 73 MN: 121 QRS: 54 QRSD: 89 T: 47 QT: 308 QTc: 473 Interpretive Statements SINUS TACHYCARDIA, POSSIBLE ATRIAL FLUTTER POSSIBLE RIGHT VENTRICULAR CONDUCTION DELAY [RSR (QR) IN V1/V2] MODERATE ST DEPRESSION [0.05+ mV ST DEPRESSION] No previous ECG available for comparison Electronically Signed On 07-12-2025 21:10:59 CDT by TESS BARRETT [email or web address]
--- NOTE | 2025-07-12 12:06 | W.ED.ANXIETY ---
HPI - Anxiety General: Chief Complaint: Anxiety Stated Complaint: MHE / Fever / Congestion Time Seen by Provider: 07/12/25 11:48 History of Present Illness: 30-year-old female presents emergency room with anxiety attack is hyperventilating with tachycardia and numbness and tingling. She is extremely anxious. She was seen previously with exposure to COVID and had complained of a headache but given her Compazine Toradol she had an dyspyramidal reaction to the Compazine which was relieved by Benadryl when she returned. She denies any hematemesis or coffee-ground emesis but has been vomiting some. She has felt congested with a low-grade fever and slight cough at home. Associated symptoms: Deny chest pain, chills or fever(s) Related Data Home Medications ?Medication ?Instructions ?Recorded ?Confirmed ascorbic acid (vitamin C) 500 mg 250 mg PO DAILY 08/04/24 07/12/25 tablet (Vitamin C) dhxhhslr-ggh-opav-FA-Ca carb-vit K 1 tab PO DAILY 08/04/24 07/12/25 18 mg iron-400 mcg-500 mg tablet mecobalamin (vitamin B12) 1,000 1,000 mcg PO DAILY 05/13/25 07/12/25 mcg chewable tablet (B12 Active) Previous Rx's ?Medication ?Instructions ?Recorded hydroxyzine HCl 25 mg tablet 25 mg PO Q6H PRN anxiety #14 tabs 07/12/25 buspirone 15 mg tablet 15 mg PO BID #60 tabs 07/14/25 hyoscyamine sulfate 0.125 mg tablet 0.125 mg PO QID PRN dyspepsia, 07/17/25 abdominal cramping #30 tabs ondansetron HCl 4 mg tablet 4 mg PO Q6H PRN nausea and 07/17/25 vomiting 5 days #20 tabs Allergies Allergy/AdvReac Type Severity Reaction Status Date / Time escitalopram (From Lexapro) Allergy ADR-Seizure Verified 07/12/25 11:45 sertraline (From Zoloft) Allergy ADR-Seizure Verified 07/12/25 11:45 Review of Systems Const: Denies: fever(s) or chills Card: Denies: chest pain Resp: Denies: dyspnea GI: Denies: abdominal pain : Denies: dysuria, urinary frequency or urinary urgency Musc: Denies: neck pain or back pain Skin/Breast: Denies: rash PFSH ED PFSH: Medical History History of anemia Acid reflux Depression Anxiety IBS (irritable bowel syndrome) Insomnia Asthma Anemia Surgical History History of bilateral tubal ligation History of History of cholecystectomy Family History Grandmother Cancer Maternal-brain Mother Cancer breast/cervical Family/Other Cancer Maternal aunt-breast/cervical Family/Other Cancer, Onset Age: 4 Maternal muuvt-pllztyzl-orpbkj away d/t this Brother Psychiatric illness Sister Psychiatric illness Sister Psychiatric illness Other Bleeding disorder Diabetes Hypertension Lung disease Stroke Denies family history of CAD (coronary artery disease) Clotting disorder Dementia Hyperlipidemia Chronic kidney disease (CKD) Anesthesia complication Social History Smoking and tobacco/nicotine status: never used tobacco/nicotine Alcohol intake: never Substance/Drug Use: never Lives independently: Yes Marital status: Number of children: 5 Current occupational status: disabled Rosalind/Yarsani: Episcopal Special rosalind needs: No Agree to transfusion: Yes Physical Exam Const: GENERAL APPEARANCE: cooperative ORIENTATION/CONSCIOUSNESS: Yes awake, Yes oriented to person, Yes oriented to place and Yes oriented to time HENMT: COMMON NORMALS: normocephalic, atraumatic and hearing grossly normal bilaterally HEAD & SCALP: normocephalic and atraumatic Resp: COMMON NORMALS: normal respiratory effort, No retractions, No use of accessory muscles and clear to auscultation bilaterally AUSCULTATION: clear to auscultation bilaterally Cardio: COMMON NORMALS: regular rate, regular rhythm and No murmurs present (Cardio) RATE: regular rate RHYTHM: regular rhythm GI: COMMON NORMALS: Soft to palpation and No hepatosplenomegaly present AUSCULTATION: Yes normoactive bowel sounds PALPATION: Yes Soft to palpation, No Tenderness to palpation present (GI), No Guarding due to palpation present (GI) and Yes No hepatosplenomegaly present Extremity: COMMON NORMALS: normal to inspection, capillary refill normal, no clubbing, cyanosis or edema, no calf tenderness and no pedal edema Neuro: SENSORIUM/ORIENTATION: Yes oriented to person, Yes oriented to place and Yes oriented to time Skin: COMMON NORMALS: no rashes or lesions noted GENERAL SKIN EXAM: no rashes or lesions noted Course Vital Signs: Vital signs: Vital Signs Temperature 97.5 F L 07/12/25 11:30 Pulse Rate 97 07/12/25 13:14 Respiratory Rate 24 H 07/12/25 11:30 Blood Pressure 100/69 07/12/25 13:14 Pulse Oximetry 97 07/12/25 13:14 Oxygen Delivery Me thod Room Air 07/12/25 11:30 MDM - Anxiety Medical Decision Making Chest x-ray was negative. After treating anxiety all her symptoms are completely relieved. She has no further complaints. Will discharge patient home with hydroxyzine 25 mg 1 every 6 hours as needed. Encouraged her to follow-up with her primary care doctor or establish at [facility] to help manage her anxiety. Lab Data Radiology Impressions Chest X-Ray 07/12/25 12:08 IMPRESSION: No acute findings. All radiology interpretation(s) finalized by discharge ED provider radiology interpretation(s): No acute findings normal lung mcginnis no widening of mediastinum. No infiltrate no pneumothorax Discharge Plan Discharge Patient Disposition: Home Clinical Impression: Acute anxiety Condition: Stable Prescriptions: New hydroxyzine HCl 25 mg tablet 25 mg PO Q6H PRN (Reason: anxiety) Qty: 14 0RF No Action mecobalamin (vitamin B12) [B12 Active] 1,000 mcg tablet,chewable 1,000 mcg PO DAILY buspirone 15 mg tablet 15 mg PO BID Qty: 60 0RF ascorbic acid (vitamin C) [Vitamin C] 500 mg Tablet 250 mg PO DAILY Women's Multivitamin 18 mg iron-400 mcg-500 mg Tablet 1 tab PO DAILY ondansetron HCl 4 mg tablet 4 mg PO Q6H PRN (Reason: nausea and vomiting) 5 Days Qty: 20 0RF hyoscyamine sulfate 0.125 mg tablet 0.125 mg PO QID PRN (Reason: dyspepsia, abdominal cramping) Qty: 30 0RF Discharge Orders: Discharge ED (Routine); Ordered 07/12/25 Ordered By: Cornelius Henry Referrals: Arben Sigala MD [Primary Care Provider, Family Practice] Discharge Diet: Usual diet Discharge Activity: Resume usual activity Patient Instructions: Opioid Safety, Pain Management, Patient Portal & Kelly Instructions Activity Restrictions/Additional Instructions: Thank you for choosing [facility] for your healthcare needs today. It is very important that you follow up as instructed or that you return to the Emergency Department should you have concerns or if your condition changes or worsens in any way. Emergency department visits are focused on emergent conditions, in some cases you may require further evaluation on an outpatient basis. You were seen in the emergency room with complaints of anxiety and chest congestion. Chest x-ray was normal your symptoms are resolved with a dose of Ativan. Will discharge you home with hydroxyzine to use as needed. Follow-up to primary care doctor (Please note that included in your discharge packet is information concerning opioid safety and pain management. This information is given to all patients were discharged from the ER regardless of their discharge diagnosis or the medicines they usually take or are prescribed.) Print Language: Upper Sorbian Coding Level of Care Code ED Physics Faculty Member for Zach Moe
--- NOTE | 2025-07-12 12:08 | XRR_ITS ---
PROCEDURE INFORMATION: Exam: XR Chest Exam date and time: 07/12/2025 12:28 PM Age: 30 years old Clinical indication: Cough and dyspnea; Additional info: Dyspnea/cough TECHNIQUE: Imaging protocol: Radiologic exam of the chest. Views: 1 view. COMPARISON: CR XR chest 1V portable [id number] 06/03/2025 8:00 AM FINDINGS: Lungs: Unremarkable. No consolidation. Pleural spaces: Unremarkable. No pleural effusion. No pneumothorax. Heart/Mediastinum: Unremarkable. No cardiomegaly. Bones/joints: Unremarkable. XR/XR chest 1V portable [id number] IMPRESSION: No acute findings.
[2025-07-12] MEDS: LORazepam 2 mg/mL INJ 1 mL IVP (12:20)
[2025-07-12 13:14] VITALS: BP 100/69; PULSE 97; O2SAT 97
== END 2025-07-12 13:15 | disposition home or self-care (01) ==
PROVIDERS: Emergency Provider Family Medicine
DX: F41.8 Other specified anxiety disorders (principal)
CPT/HCPCS: 71045; 93005; 96374; 99284; J2060

== ENCOUNTER 2025-07-14 07:10 | Emergency (ER) | payer MEDICAID, SELFPAY ==
--- OUTSIDE RECORDS SUMMARY | 2024-02-06 02:00 | XMS_ITS ---
Author Organization [facility] Accounts Recei vable Address [address] [place] [address] Care Team Providers Care Auditing Specialist Name Role Phone Micah Ragsdale Unavailable [phone] Spring Skinner Unavailable [phone] REASON FOR VISIT [email or web address] Social History Sex Assigned At : Social History Observation Description Sex Assigned At Female Encounters Encounter Location Date Provider Diagnosis [address] [address] 02/06/2024 Spring Skinner Plan Of Treatment No Information Progress Notes * Janet JOHNSONDOB:1994 (30 yo F)Acc No.[id number]:02/06/2024 Patient: Janet Thornton Provider: Kostas Skinner RDH :1995 A ge:28 Y S ex:Female Date:02/06/2024 Address:[address] [place] [address], [facility] [place], [place] Patient's Default Facility:B [facility] Subjective: * Chief Complaints: * A pe.plp Billing Information: * Procedure Codes: * Electronic signature of Spring Skinner RDH on 07/14/2025 at 07:16 AM HEATING ELEMENT BUILDER Sign off status: Pending * Provider: Kostas Skinner RDH Date: 0 02/06/2024 Generated for Printi ng/Faxing/eTransmitting on: 1 09/13/2024 07:16 AM HEATING ELEMENT BUILDER
--- OUTSIDE RECORDS SUMMARY | 2024-05-29 05:00 | XMS_ITS ---
Author Organization [facility] Accounts Recei vable Address [address] [place] [address] Care Team Providers Care J2Ee Software Engineer Name Role Phone Micah Ragsdale Unavailable [phone] Lopez Lee Unavailable [phone] REASON FOR VISIT ape Social History Sex Assigned At : Social History Observation Description Sex Assigned At Female Encounters Encounter Location Date Provider Diagnosis [address] [address] 05/29/2024 Lopez Lee Plan Of Treatment No Information Progress Notes * Janet JOHNSONDOB:1994 (30 yo F)Acc No.[id number]:05/29/2024 Patient: Mikki Thorntonney Provider: Lissy Serrato RDH :1995 A ge:29 Y S ex:Female Date:05/29/2024 Address:[address] [place] [address], [facility] Patient's Default Facility:B [facility] Subjective: * Chief Complaints: * A pe Billing Information: * Procedure Codes: * Electronic signature of Quinn Lee RDH on 07/14/2025 at 07:15 AM MEDICINE AND HEALTH SERVICE MANAGER Sign off status: Pending * Provider: Lissy Serrato RDH Date: 0 05/29/2024 Generated for Karrii ng/Faaminahg/eTransmitting on: 1 09/13/2024 07:15 AM MEDICINE AND HEALTH SERVICE MANAGER
--- OUTSIDE RECORDS SUMMARY | 2025-01-10 02:00 | XMS_ITS ---
Author Organization [facility] Accounts Recei vable Address [address] [place] [address] Care Team Providers Care Line Assembler Aircraft Name Role Phone Micah Ragsdale Unavailable [phone] Spring Skinner Unavailable [phone] REASON FOR VISIT comp, xr, reeval tx.plp Social History Sex Assigned At : Social History Observation Description Sex Assigned At Female Encounters Encounter Location Date Provider Diagnosis [address] [address] 01/10/2025 Spring Skinner Plan Of Treatment No Information Progress Notes * Janet JOHNSONDOB:1994 (30 yo F)Acc No.[id number]:01/10/2025 Progress Note Patient: Mikki Thorntonney Provider: Kostas Skinner RDH :1995 A ge:29 Y S ex:Female Date:01/10/2025 Address:[address] [place] [address], [facility] [place] Patient's Default Facility:B [facility] Subjective: * Chief Complaints: * C omp, xr, reeval tx.plp * Electronic signature of Spring Skinner RDH on 07/14/2025 at 07:15 AM INSTRUCTOR WATCH ASSEMBLY Sign off status: Pending * Provider: Kostas Skinner RDH Date: 0 01/10/2025 Generated for Printi ng/Faxing/eTransmitting on: 1 09/13/2024 07:15 AM INSTRUCTOR WATCH ASSEMBLY
--- OUTSIDE RECORDS SUMMARY | 2025-06-13 02:00 | XMS_ITS ---
Author Organization [facility] Accounts Recei vable Address [address] [place] [address] Care Team Providers Care Communication Electronic Technician Name Role Phone Micah Ragsdale Unavailable [phone] ArenCarrie lopez Unavailable [phone] REASON FOR VISIT APE, BWX, PEX gn Social History Sex Assigned At : Social History Observation Description Sex Assigned At Female Encounters Encounter Location Date Provider Diagnosis [address] [address] 06/13/2025 Carrie Younger Plan Of Treatment No Information Progress Notes * Janet JOHNSONDOB:1994 (30 yo F)Acc No.[id number]:06/13/2025 Patient: Andrews Janet almonte Provider: Andrews Younger [facility] :1995 A ge:30 Y S ex:Female Date:06/13/2025 Address:[address] [place] [address] [address], [facility] Patient's Default Facility:B [facility] Subjective: * Chief Complaints: * A PE, BWX, PEX gn * Electronic signature of [facility] evita Younger on 07/14/2025 at 07:16 AM CALL CENTER ASSISTANT Sign off status: Pending * Provider: Andrews Younger [facility] Date: Generated for Printi ng/Faxing/eTransmitting on: 09/13/2024 07:16 AM CALL CENTER ASSISTANT
--- OUTSIDE RECORDS SUMMARY | 2025-07-14 07:15 | XMS_ITS | Patient Health Record ---
Author Organization [facility] Accounts Recei vable Address [address] [place] [address] Care Team Providers Care Manager Asset Name Role Phone Micah Ragsdale Unavailable [phone] Spring Skinner Unavailable [phone] Carrie Younger Unavailable [phone] Allergies Allergen (clinical drug ingredient) Drug/Non Drug [...] cavity (V76.42) Active confirmed Problem Toothache (finding) (44376347) Tooth pain (K08.89) Active confirmed Problem At high risk for dental caries (finding) (105318816) Risk for dental caries, high (Z91.843) Active confirmed Vital Signs Heart Rate 74 Minute 04/11/2025 Blood pressure diastolic 69 mm Hg 04/11/2025 Height 65 in 04/11/2025 Blood pressure systolic 107 mm Hg 04/11/2025 Weight 171.6 lbs 04/11/2025 BMI 28.55 kg/m2 04/11/2025 Encounters Encounter Location Date Provider Diagnosis [address] [address] 03/13/2025 Carrie Aren Tooth pain K08.[address] [address] 04/11/2025 Abu Hasme [address] [place] [address] 07/29/2024 Micah Hasme Tooth pain K08.89 Assessments [...] Date Coverage End Date [facility] [place] [facility] [address] [place] [address] [phone] [id number] Janet Johnson Self - patient is the insured Medical (General) History Medical History History ICD Code Allergies ADD\ ADHD astma Anxeity and Depression Surgical History Surgery Date(Month/Year) C section Tub tied Gallbladder Hospitalization History Reason Date(Month/Year) see above
--- OUTSIDE RECORDS SUMMARY | 2025-07-14 07:16 | XMS_ITS | Patient Health Record ---
Author Organization [facility] Address [address] [place] [address] Care Team Providers Care Call Center Director Name Role Phone Arben Sigala MD Primary Care Provider UnavailBeena Hightower Unavailable [phone] Allergies Allergen (clinical drug ingredient) Drug/Non Drug [...] Date Status Comme nts Influenza (whole), CPT 34788 Inactive Unknown 02/28/2019 Administered Influenza (whole), CPT 41487 Inactive Unknown 06/17/2019 Administered Social History Tobacco [...] Problem Status W/U Status Risk Notes Problem Gastroesophageal reflux disease (236700704) Gastroesophageal reflux disease, unspecified whether esophagitis present (K21.9) Active confirmed Problem Depression (953045840) Other depression (F32.89) Active confirmed Problem visit (824934217) Encounter for routine follow-up (Z39.2) Active confirmed Plan Of Treatment No Information Insurance Providers Payer Name Payer Address Payer Phone Subscriber Number Group Number Insured Name Patient Relationship to Insured Coverage Start Date Coverage End Date [place] Medicaid [address] [place] [address] [id number] Janet Fisher Self - patient is the insured Medical (General) History Medical History History ICD Code Asthma Closed fracture of distal phalanx of fin calli Irregular periods Anemia Anxiety Chronic depression Irritable colon anxiety Surgical History Surgery Date(Month/Year) Bilateral tubal ligation 09/25/2019 section 2018 Cholecystectomy 2015 Hospitalization History Reason Date(Month/Year) see surgerys
[2025-07-14 07:18] VITALS: BP 113/70; PULSE 102; RESP 17; TEMP 36.7; O2SAT 100; BMI 30.4
--- NOTE | 2025-07-14 07:25 | W.ED.ANXIETY ---
HPI - Anxiety General: Chief Complaint: Anxiety Stated Complaint: panic attacks Time Seen by Provider: 07/14/25 07:19 History of Present Illness: 30-year-old female presents emergency room with acute panic attacks been seen several times recently. She has been treated with Ativan previously successfully. We discharged her home last time with hydroxyzine. She states she feels like she has another panic attack coming on and she is unsure what is precipitating them. She is not on any other antianxiolytic or antidepressant medications. No other illness no chest pain no abdominal pain Associated symptoms: Deny chest pain, chills or fever(s) Related Data Home Medications ?Medication ?Instructions ?Recorded ?Confirmed ascorbic acid (vitamin C) 500 mg 250 mg PO DAILY 08/04/24 07/12/25 tablet (Vitamin C) fqnghabs-xcn-zpnd-FA-Ca carb-vit K 1 tab PO DAILY 08/04/24 07/12/25 18 mg iron-400 mcg-500 mg tablet mecobalamin (vitamin B12) 1,000 1,000 mcg PO DAILY 05/13/25 07/12/25 mcg chewable tablet (B12 Active) Previous Rx's ?Medication ?Instructions ?Recorded hydroxyzine HCl 25 mg tablet 25 mg PO Q6H PRN anxiety #14 tabs 07/12/25 buspirone 15 mg tablet 15 mg PO BID #60 tabs 07/14/25 hyoscyamine sulfate 0.125 mg tablet 0.125 mg PO QID PRN dyspepsia, 07/17/25 abdominal cramping #30 tabs ondansetron HCl 4 mg tablet 4 mg PO Q6H PRN nausea and 07/17/25 vomiting 5 days #20 tabs Allergies Allergy/AdvReac Type Severity Reaction Status Date / Time escitalopram (From Lexapro) Allergy ADR-Seizure Verified 07/12/25 11:45 sertraline (From Zoloft) Allergy ADR-Seizure Verified 07/12/25 11:45 Review of Systems Const: Denies: fever(s) or chills Card: Denies: chest pain Resp: Denies: dyspnea GI: Denies: abdominal pain : Denies: dysuria, urinary frequency or urinary urgency Musc: Denies: neck pain or back pain Skin/Breast: Denies: rash PFSH ED PFSH: Medical History History of anemia Acid reflux Depression Anxiety IBS (irritable bowel syndrome) Insomnia Asthma Anemia Surgical History History of bilateral tubal ligation History of History of cholecystectomy Family History Grandmother Cancer Maternal-brain Mother Cancer breast/cervical Family/Other Cancer Maternal aunt-breast/cervical Family/Other Cancer, Onset Age: 4 Maternal jiokb-sluyfsou-zhljky away d/t this Brother Psychiatric illness Sister Psychiatric illness Sister Psychiatric illness Other Bleeding disorder Diabetes Hypertension Lung disease Stroke Denies family history of CAD (coronary artery disease) Clotting disorder Dementia Hyperlipidemia Chronic kidney disease (CKD) Anesthesia complication Social History Smoking and tobacco/nicotine status: never used tobacco/nicotine Alcohol intake: never Substance/Drug Use: never Lives independently: Yes Marital status: Number of children: 5 Current occupational status: disabled Rosalind/Jain: Voodoo Special rosalind needs: No Agree to transfusion: Yes Physical Exam Const: COMMON NORMALS: no acute distress GENERAL APPEARANCE: cooperative and comfortable ORIENTATION/CONSCIOUSNESS: Yes awake, Yes oriented to person, Yes oriented to place and Yes oriented to time HENMT: COMMON NORMALS: normocephalic, atraumatic and hearing grossly normal bilaterally HEAD & SCALP: normocephalic and atraumatic Resp: COMMON NORMALS: normal respiratory effort, No retractions, No use of accessory muscles and clear to auscultation bilaterally AUSCULTATION: clear to auscultation bilaterally Cardio: COMMON NORMALS: regular rhythm and No murmurs present (Cardio) RATE: tachycardic RHYTHM: regular rhythm GI: COMMON NORMALS: Soft to palpation and No hepatosplenomegaly present AUSCULTATION: Yes normoactive bowel sounds PALPATION: Yes Soft to palpation, No Tenderness to palpation present (GI), No Guarding due to palpation present (GI) and Yes No hepatosplenomegaly present Extremity: COMMON NORMALS: normal to inspection, capillary refill normal, no clubbing, cyanosis or edema, no calf tenderness and no pedal edema Neuro: SENSORIUM/ORIENTATION: Yes oriented to person, Yes oriented to place and Yes oriented to time Skin: COMMON NORMALS: no rashes or lesions noted GENERAL SKIN EXAM: no rashes or lesions noted Course Vital Signs: Vital signs: Vital Signs Temperature 98.1 F 07/14/25 07:18 Pulse Rate 88 07/14/25 08:51 Respiratory Rate 17 07/14/25 07:18 Blood Pressure 109/63 07/14/25 08:51 Pulse Oximetry 99 07/14/25 08:51 Oxygen Delivery Me thod Room Air 07/14/25 07:18 MDM - Anxiety Medical Decision Making Patient improved with anxiety lytics. Will discharge patient home. Started on BuSpar 7/2 mg twice daily for 1 week then increase to 1 pill twice a day. Also encouraged her to follow-up through [facility]. Lab Data Radiology Impressions Chest X-Ray 07/14/25 07:53 Impression: Negative chest. All radiology interpretation(s) finalized by discharge Discharge Plan Discharge Patient Disposition: Home Clinical Impression: Panic disorder Condition: Stable Prescriptions: New buspirone 15 mg tablet 15 mg PO BID Qty: 60 0RF No Action mecobalamin (vitamin B12) [B12 Active] 1,000 mcg tablet,chewable 1,000 mcg PO DAILY ascorbic acid (vitamin C) [Vitamin C] 500 mg Tablet 250 mg PO DAILY Women's Multivitamin 18 mg iron-400 mcg-500 mg Tablet 1 tab PO DAILY hydroxyzine HCl 25 mg tablet 25 mg PO Q6H PRN (Reason: anxiety) Qty: 14 0RF ondansetron HCl 4 mg tablet 4 mg PO Q6H PRN (Reason: nausea and vomiting) 5 Days Qty: 20 0RF hyoscyamine sulfate 0.125 mg tablet 0.125 mg PO QID PRN (Reason: dyspepsia, abdominal cramping) Qty: 30 0RF Discharge Orders: Discharge ED (Routine); Ordered 07/14/25 Ordered By: Cornelius Henry Referrals: Arben Sigala MD [Primary Care Provider, Family Practice] Discharge Diet: Usual diet Discharge Activity: Increase activity as tolerated Patient Instructions: Panic Disorder (ED), Anxiety (ED), Opioid Safety, Pain Management, Patient Portal & Kelly Instructions Activity Restrictions/Additional Instructions: Thank you for choosing [facility] for your healthcare needs today. It is very important that you follow up as instructed or that you return to the Emergency Department should you have concerns or if your condition changes or worsens in any way. Emergency department visits are focused on emergent conditions, in some cases you may require further evaluation on an outpatient basis. You were seen emergency room with panic attack. Physical exam was otherwise normal and chest x-ray was normal. Will start you on buspirone 15 mg 1 pill twice a day. Continue to use hydroxyzine as needed if you have further panic attacks. You should follow-up at [facility] to establish to see a psychiatrist. (Please note that included in your discharge packet is information concerning opioid safety and pain management. This information is given to all patients were discharged from the ER regardless of their discharge diagnosis or the medicines they usually take or are prescribed.) Print Language: Irish Coding Level of Care Code ED Crop Setting Out Machine Operator for Zach Moe
[2025-07-14] MEDS: LORazepam 2 mg/mL INJ 1 mL IVP (07:38)
--- NOTE | 2025-07-14 07:53 | XR_ITS ---
WS: [id number] Portable AP upright chest, 07/14/2025 Clinical Data: dyspnea/cough Comparison: Portable chest, 07/12/2025 Findings: No nodules, masses or effusions are seen. The heart is normal. The pulmonary vascularity is not increased. No pneumonia or pneumothorax is seen. XR/XR chest 1V portable [id number] Impression: Negative chest.
[2025-07-14 08:51] VITALS: BP 109/63; PULSE 88; O2SAT 99
== END 2025-07-14 08:51 | disposition home or self-care (01) ==
PROVIDERS: Emergency Provider Family Medicine
DX: F41.0 Panic disorder [episodic paroxysmal anxiety] (principal)
CPT/HCPCS: 71045; 96374; 99284; J2060

== ENCOUNTER 2025-07-16 17:52 | Emergency (ER) | payer MEDICAID, SELFPAY ==
--- OUTSIDE RECORDS SUMMARY | 2024-02-06 02:00 | XMS_ITS ---
Author Organization [facility] Accounts Recei vable Address [address] [place] [address] Care Team Providers Care Home Energy Rater Name Role Phone Micah Ragsdale Unavailable [phone] Spring Skinner Unavailable [phone] REASON FOR VISIT [email or web address] Social History Sex Assigned At : Social History Observation Description Sex Assigned At Female Encounters Encounter Location Date Provider Diagnosis [address] [address] 02/06/2024 Spring Skinner Plan Of Treatment No Information Progress Notes * Janet JOHNSONDOB:1994 (30 yo F)Acc No.[id number]:02/06/2024 Patient: Janet Thornton Provider: Kostas Skinner RDH :1995 A ge:28 Y S ex:Female Date:02/06/2024 Address:[address] [place] [address], [facility], [place] Patient's Default Facility:B [facility] Subjective: * Chief Complaints: * A pe.plp Billing Information: * Procedure Codes: * Electronic signature of Spring Skinner RDH on 07/16/2025 at 05:59 PM STUMP SHOOTER Sign off status: Pending * Provider: Kostas Skinner RDH Date: 02/06/2024 Generated for Printi ng/Faxing/eTransmitting on: 1 09/15/2024 05:59 PM STUMP SHOOTER
--- OUTSIDE RECORDS SUMMARY | 2024-05-29 05:00 | XMS_ITS ---
Author Organization [facility] Accounts Recei vable Address [address] [place] [address] Care Team Providers Care Nursing Administrator Name Role Phone Micah Ragsdale Unavailable [phone] Lopez Lee Unavailable REASON FOR VISIT ape Social History Sex Assigned At : Social History Observation Description Sex Assigned At Female Encounters Encounter Location Date Provider Diagnosis [address] [address] 05/29/2024 Lopez Lee Plan Of Treatment No Information Progress Notes * Janet JOHNSONDOB:1994 (30 yo F)Acc No.[id number]:05/29/2024 Patient: Mikki Thorntonney Provider: Lissy Serrato RDH :1995 A ge:29 Y S ex:Female Date:05/29/2024 Address:[address] [place] [address], [facility], [place] Patient's Default Facility:B [facility] Subjective: * Chief Complaints: * A pe Billing Information: * Procedure Codes: * Electronic signature of Quinn Lee RDH on 07/16/2025 at 05:58 PM RELIGIOUS HEALER Sign off status: Pending * Provider: Lissy Serrato RDH Date: 0 05/29/2024 Generated for Printi ng/Faaminahg/eTransmitting on: 1 09/15/2024 05:58 PM RELIGIOUS HEALER
--- OUTSIDE RECORDS SUMMARY | 2025-01-10 02:00 | XMS_ITS ---
Author Organization [facility] Accounts Recei vable Address [address] [place] [address] Care Team Providers Care Armature Balancer Name Role Phone Micah Ragsdale Unavailable [phone] Spring Skinner Unavailable [phone] REASON FOR VISIT comp, xr, reeval tx.plp Social History Sex Assigned At : Social History Observation Description Sex Assigned At Female Encounters Encounter Location Date Provider Diagnosis [address] [address] 01/10/2025 Spring Skinner Plan Of Treatment No Information Progress Notes * Janet JOHNSONDOB:1994 (30 yo F)Acc No.[id number]:01/10/2025 Progress Note Patient: Janet Thornton Provider: Kostas Skinner RDH :1995 A ge:29 Y S ex:Female Date:01/10/2025 Address:[address] [place] [address] [address], [facility], [place] Patient's Default Facility:[facility] Subjective: * Chief Complaints: * C omp, xr, reeval tx.plp * Electronic signature of Spring Skinnre RDH on 07/16/2025 at 05:58 PM SHINGLE CARRIER Sign off status: Pending * Provider: Kostas Skinner RDH Date: 0 01/10/2025 Generated for Printi ng/Faxing/eTransmitting on: 1 09/15/2024 05:58 PM SHINGLE CARRIER
--- OUTSIDE RECORDS SUMMARY | 2025-06-13 02:00 | XMS_ITS ---
Author Organization [facility] Accounts Recei vable Address [address] [place] [address] Care Team Providers Care Home Health Physical Therapist Name Role Phone Micah Ragsdale Unavailable [phone] Carrie Younger Unavailable [phone] REASON FOR VISIT APE, BWX, PEX gn Social History Sex Assigned At : Social History Observation Description Sex Assigned At Female Encounters Encounter Location Date Provider Diagnosis [address] [address] 06/13/2025 Carrie Younger Plan Of Treatment No Information Progress Notes * Janet JOHNSONDOB:1994 (30 yo F)Acc No.[id number]:06/13/2025 Patient: Andrews Janet almonte Provider: Andrews Younger [facility] :1995 A ge:30 Y S ex:Female Date:06/13/2025 Address:[address] [place] [address] [address], [facility], [place] Patient's Default Facility:B [facility] Subjective: * Chief Complaints: * A PE, BWX, PEX gn * Electronic signature of [facility] evita Younger on 07/16/2025 at 05:58 PM SHROUD LINE TIER Sign off status: Pending * Provider: Andrews Younger [facility] Date: Generated for Printi ng/Faxing/eTransmitting on: 09/15/2024 05:58 PM SHROUD LINE TIER
[2025-07-16 17:55] VITALS: BP 146/118; PULSE 89; RESP 18; TEMP 36.8; O2SAT 100; BMI 29.4
--- OUTSIDE RECORDS SUMMARY | 2025-07-16 17:58 | XMS_ITS | Patient Health Record ---
Author Organization [facility] Accounts Recei vable Address [address] [place] [address] Care Team Providers Care Top Precipitator Operator Name Role Phone Micah Ragsdale Unavailable [phone] Spring Skinner Unavailable [phone] Carrie Younger Unavailable [phone] Allergies Allergen (clinical drug ingredient) Drug/Non Drug [...] cavity (V76.42) Active confirmed Problem Toothache (finding) (38574267) Tooth pain (K08.89) Active confirmed Problem At high risk for dental caries (finding) (842583309) Risk for dental caries, high (Z91.843) Active confirmed Vital Signs Heart Rate 74 Minute 04/11/2025 Blood pressure diastolic 69 mm Hg 04/11/2025 Height 65 in 04/11/2025 Blood pressure systolic 107 mm Hg 04/11/2025 Weight 171.6 lbs 04/11/2025 BMI 28.55 kg/m2 04/11/2025 Encounters Encounter Location Date Provider Diagnosis [address] [address] 03/13/2025 Carrie Aren Tooth pain K08.[address] [address] 04/11/2025 [address] [address] [place] [address] 07/29/2024 Micah Hasme Tooth pain K08.89 Assessments Encounter Date Diagnosis (ICD Code) Assessment Notes Treatment Notes Treatment Clinical Notes Section Notes 07/29/2024 Tooth pain (ICD-10 - K08.89) [...] Date Coverage End Date [facility] [place] [facility] [address] [place] [address] [phone] [id number] Janet Johnson Self - patient is the insured Medical (General) History Medical History History ICD Code Allergies ADD\ ADHD astma Anxeity and Depression Surgical History Surgery Date(Month/Year) C section Tub tied Gallbladder Hospitalization History Reason Date(Month/Year) see above
--- OUTSIDE RECORDS SUMMARY | 2025-07-16 17:59 | XMS_ITS | Patient Health Record ---
Author Organization [facility] Address [address] [facility] [place] [address] Care Team Providers Care Boat Loader Name Role Phone Arben Sigala MD Primary Care Provider UnavailBeena Hightower Unavailable [phone] Allergies Allergen (clinical drug ingredient) Drug/Non Drug [...] Date Status Comme nts Influenza (whole), CPT 83081 Inactive Unknown 02/28/2019 Administered Influenza (whole), CPT 12081 Inactive Unknown 06/17/2019 Administered Social History Tobacco [...] Status W/U Status Risk Notes Problem visit (159135659) Encounter for routine follow-up (Z39.2) Active confirmed Problem Depression (421159961) Other depression (F32.89) Active confirmed Problem Gastroesophageal reflux disease (276794097) Gastroesophageal reflux disease, unspecified whether esophagitis present (K21.9) Active confirmed Plan Of Treatment No Information Insurance Providers Payer Name Payer Address Payer Phone Subscriber Number Group Number Insured Name Patient Relationship to Insured Coverage Start Date Coverage End Date [place] Medicaid [address] [place] [address] [id number] Janet Fisher Self - patient is the insured Medical (General) History Medical History History ICD Code Asthma Closed fracture of distal phalanx of fin calli Irregular periods Anemia Anxiety Chronic depression Irritable colon anxiety Surgical History Surgery Date(Month/Year) Bilateral tubal ligation 09/25/2019 section 2018 Cholecystectomy 2015 Hospitalization History Reason Date(Month/Year) see surgerys
[2025-07-16 20:17] VITALS: BP 124/74; O2SAT 100
[2025-07-16] MEDS: LORazepam 2 mg/mL INJ 1 mL IM (20:41)
--- NOTE | 2025-07-16 21:15 | W.ED.RECABL ---
HPI - Recheck/Abnormal Lab/Rx General: Chief Complaint: Recheck/Abnormal Lab/Rx Stated Complaint: believes medicines are reacting. n/v anxiety Time Seen by Provider: 07/16/25 20:02 Source: patient Mode of arrival: ambulatory Limitations: no limitations History of Present Illness: Patient is a 30-year-old female presents emergency department complaining of medication reaction. States that she has been taking hydralazine for anxiety and she thinks that it has been making her symptoms worse. Notes that she has been shaking and panicked, also has been nauseous with some vomiting intermittently. She has received Ativan in the past for panic attacks. Does report baseline history of anxiety states that she was recently prescribed BuSpar for this. She is concerned that she is going to fall asleep and did not wake up. Does not endorse any suicidal ideations at this time. Her vitals are stable and she is notably anxious. MD complaint: other (Reporting medication reaction to hydroxyzine) Related Data Home Medications ?Medication ?Instructions ?Recorded ?Confirmed ascorbic acid (vitamin C) 500 mg 250 mg PO DAILY 08/04/24 07/12/25 tablet (Vitamin C) ejqfgxgx-qdl-oxri-FA-Ca carb-vit K 1 tab PO DAILY 08/04/24 07/12/25 18 mg iron-400 mcg-500 mg tablet mecobalamin (vitamin B12) 1,000 1,000 mcg PO DAILY 05/13/25 07/12/25 mcg chewable tablet (B12 Active) Previous Rx's ?Medication ?Instructions ?Recorded hydroxyzine HCl 25 mg tablet 25 mg PO Q6H PRN anxiety #14 tabs 07/12/25 buspirone 15 mg tablet 15 mg PO BID #60 tabs 07/14/25 Allergies Allergy/AdvReac Type Severity Reaction Status Date / Time escitalopram (From Lexapro) Allergy ADR-Seizure Verified 07/12/25 11:45 sertraline (From Zoloft) Allergy ADR-Seizure Verified 07/12/25 11:45 Review of Systems General: Reports: 10 or more systems reviewed and unremarkable except in HPI and below Const: Denies: fever(s), chills or fatigue Eyes: Denies: change in vision ENMT: Denies: throat pain, ear or mastoid pain or nasal discharge Card: Denies: chest pain, palpitations, swelling of feet/ankles or lightheadedness Resp: Denies: dyspnea, productive cough or wheezing GI: Reports: nausea and vomiting; Denies: abdominal pain, diarrhea or constipation : Denies: flank pain, difficulty voiding, dysuria or urinary frequency Musc: Denies: neck pain, back pain or joint pain Skin/Breast: Denies: rash Neuro: Denies: headache(s), numbness in extremities or weakness in extremities Psych: Reports: anxiety, panic attacks, irritability and paranoia; Denies: suicidal ideation PFSH ED PFSH: Medical History History of anemia Acid reflux Depression Anxiety IBS (irritable bowel syndrome) Insomnia Asthma Anemia Surgical History History of bilateral tubal ligation History of History of cholecystectomy Family History Grandmother Cancer Maternal-brain Mother Cancer breast/cervical Family/Other Cancer Maternal aunt-breast/cervical Family/Other Cancer, Onset Age: 4 Maternal ysyvm-ldoqfxeg-zseyah away d/t this Brother Psychiatric illness Sister Psychiatric illness Sister Psychiatric illness Other Bleeding disorder Diabetes Hypertension Lung disease Stroke Denies family history of CAD (coronary artery disease) Clotting disorder Dementia Hyperlipidemia Chronic kidney disease (CKD) Anesthesia complication Social History Smoking and tobacco/nicotine status: never used tobacco/nicotine Alcohol intake: never Substance/Drug Use: never Lives independently: Yes Marital status: Number of children: 5 Current occupational status: disabled Rosalind/Moravian: Religious Special rosalind needs: No Agree to transfusion: Yes Physical Exam Const: COMMON NORMALS: no acute distress, patient oriented x3 and no limitations GENERAL APPEARANCE: cooperative and well developed ORIENTATION/CONSCIOUSNESS: Yes awake, Yes oriented to person, Yes oriented to place and Yes oriented to time OTHER: Anxious, nontoxic HENMT: COMMON NORMALS: normocephalic, atraumatic and hearing grossly normal bilaterally HEAD & SCALP: normocephalic and atraumatic Eye: COMMON NORMALS: Equal, round and reactive pupils present, EOMs intact bilaterally and conjunctivae normal CONJUNCTIVA: Yes conjunctivae normal PUPIL: Yes Equal, round and reactive pupils present Neck/C-Spine: COMMON NORMALS: full ROM, supple and no JVD Resp: COMMON NORMALS: normal respiratory effort, No retractions, No use of accessory muscles and clear to auscultation bilaterally AUSCULTATION: clear to auscultation bilaterally Cardio: COMMON NORMALS: no JVD, regular rate, regular rhythm, No clicks present (Cardio), No murmurs present (Cardio) and No rub (Cardio) RATE: regular rate RHYTHM: regular rhythm Extremity: COMMON NORMALS: normal to inspection, full ROM and capillary refill normal Neuro: COMMON NORMALS: patient oriented x3, moves all extremities, no focal motor deficits and no sensory deficits noted SENSORIUM/ORIENTATION: Yes oriented to person, Yes oriented to place and Yes oriented to time Psych: COMMON NORMALS: mental status grossly normal and Normal thought process present THOUGHT PROCESS: Normal thought process present THOUGHT CONTENT: No Suicidality present Skin: COMMON NORMALS: no rashes or lesions noted GENERAL SKIN EXAM: no rashes or lesions noted Course Vital Signs: Vital signs: Vital Signs Temperature 98.3 F 07/16/25 17:55 Pulse Rate 89 07/16/25 17:55 Respiratory Rate 18 07/16/25 17:55 Blood Pressure 124/74 07/16/25 20:17 Pulse Oximetry 100 07/16/25 20:17 Oxygen Delivery Me thod Room Air 07/16/25 20:17 MDM - Recheck/Abnormal Lab/Rx Medical Decision Making Patient presented stating she was having reaction to Retrox and she has been taking for as needed anxiety. Also recently started BuSpar. Has a baseline history of anxiety. No neurological deficits on examination she was anxious notably. Was given Ativan which greatly improved her condition, suspect that this is an acute anxiety informed to follow-up primary care. Couple of Ativan will be sent home for breakthrough anxiety. No radiology studies performed this visit Discharge Plan Discharge Patient Disposition: Home Clinical Impression: Acute anxiety Medication reaction Qualifiers: Encounter type: initial encounter Qualified Code(s): T50.905A - Adverse effect of unspecified drugs, medicaments and biological substances, initial encounter Condition: Stable Prescriptions: No Action mecobalamin (vitamin B12) [B12 Active] 1,000 mcg tablet,chewable 1,000 mcg PO DAILY buspirone 15 mg tablet 15 mg PO BID Qty: 60 0RF ascorbic acid (vitamin C) [Vitamin C] 500 mg Tablet 250 mg PO DAILY Women's Multivitamin 18 mg iron-400 mcg-500 mg Tablet 1 tab PO DAILY hydroxyzine HCl 25 mg tablet 25 mg PO Q6H PRN (Reason: anxiety) Qty: 14 0RF Discharge Orders: Discharge ED (Routine); Ordered 07/16/25 Ordered By: Marcos Zabala Referrals: Arben Sigala MD [Primary Care Provider, [facility]] Patient Instructions: Patient Portal & Kelly Instructions Activity Restrictions/Additional Instructions: Stop taking hydroxyzine. Take the Ativan as needed for any acute anxiety. Please follow-up with primary care provider at your earliest convenience and return with any new or worsening. Print Language: Ivorian Coding Level of Care Code ED Steward/Stewardess Economy Class for Zach Moe
[2025-07-16 21:54] VITALS: BP 128/70; PULSE 98; RESP 18; O2SAT 98
== END 2025-07-16 21:55 | disposition home or self-care (01) ==
PROVIDERS: Emergency Provider Physician Assistant
DX: F41.8 Other specified anxiety disorders (principal); T50.905A Adverse effect of unspecified drugs, medicaments and biological substances, initial encounter; X58.XXXA Exposure to other specified factors, initial encounter
CPT/HCPCS: 96372; 99284; J2060; J9999

== ENCOUNTER 2025-07-17 17:22 | Emergency (ER) | payer MEDICAID, SELFPAY ==
--- OUTSIDE RECORDS SUMMARY | 2024-02-06 02:00 | XMS_ITS ---
Author Organization [facility] Accounts Recei vable Address [address] [place] [address] Care Team Providers Care Wastewater Treatment Operator Name Role Phone Micah Ragsdale Unavailable [phone] Spring Skinner Unavailable [phone] REASON FOR VISIT [email or web address] Social History Sex Assigned At : Social History Observation Description Sex Assigned At Female Encounters Encounter Location Date Provider Diagnosis [address] [address] 02/06/2024 Spring Skinner Plan Of Treatment No Information Progress Notes * Janet JOHNSONDOB:1994 (30 yo F)Acc No.[id number]:02/06/2024 Patient: Janet Thornton Provider: Kostas Skinner RDH :1995 A ge:28 Y S ex:Female Date:02/06/2024 Address:[address] [place] [address], [facility] Patient's Default Facility:B [facility] Subjective: * Chief Complaints: * A pe.plp Billing Information: * Procedure Codes: * Electronic signature of Spring Skinner RDH on 07/17/2025 at 05:27 PM STATE MANAGER Sign off status: Pending * Provider: Kostas Skinner RDH Date: 0 02/06/2024 Generated for Printi ng/Faxing/eTransmitting on: 1 09/16/2024 05:27 PM STATE MANAGER
--- OUTSIDE RECORDS SUMMARY | 2024-05-29 05:00 | XMS_ITS ---
Author Organization [facility] Accounts Recei vable Address [address] [place] [address] Care Team Providers Care Setter Induction Heating Equipment Name Role Phone Micah Ragsdale Unavailable [phone] Lopez Lee Unavailable REASON FOR VISIT ape Social History Sex Assigned At : Social History Observation Description Sex Assigned At Female Encounters Encounter Location Date Provider Diagnosis [address] [address] 05/29/2024 Lopez Lee Plan Of Treatment No Information Progress Notes * Janet JOHNSONDOB:1994 (30 yo F)Acc No.[id number]:05/29/2024 Patient: Mikki Thorntonney Provider: Lissy Serrato RDH :1995 A ge:29 Y S ex:Female Date:05/29/2024 Address:[address] [place] [address], [facility], [place] Patient's Default Facility:B [facility] Subjective: * Chief Complaints: * A pe Billing Information: * Procedure Codes: * Electronic signature of Quinn Lee RDH on 07/17/2025 at 05:26 PM HIDES INSPECTOR Sign off status: Pending * Provider: Lissy Serrato RDH Date: 0 05/29/2024 Generated for Karrii ng/Faaminahg/eTransmitting on: 1 09/16/2024 05:26 PM HIDES INSPECTOR
--- OUTSIDE RECORDS SUMMARY | 2025-01-10 02:00 | XMS_ITS ---
Author Organization [facility] Accounts Recei vable Address [address] [place] [address] Care Team Providers Care Primary Care Nurse Practitioner Name Role Phone Micah Ragsdale Unavailable [phone] Spring Skinner Unavailable [phone] REASON FOR VISIT comp, xr, reeval tx.plp Social History Sex Assigned At : Social History Observation Description Sex Assigned At Female Encounters Encounter Location Date Provider Diagnosis [address] [address] 01/10/2025 Spring Skinner Plan Of Treatment No Information Progress Notes * Janet JOHNSONDOB:1994 (30 yo F)Acc No.[id number]:01/10/2025 Progress Note Patient: Janet Thornton Provider: Kostas Skinner RDH :1995 A ge:29 Y S ex:Female Date:01/10/2025 Address:[address] [place] [address], [facility] Patient's Default Facility:B [facility] Subjective: * Chief Complaints: * C omp, xr, reeval tx.plp * Electronic signature of Spring Skinner RDH on 07/17/2025 at 05:26 PM FIREFIGHTER TYPE ONE Sign off status: Pending * Provider: Kostas Skinner RDH Date: 0 01/10/2025 Generated for Printi ng/Faxing/eTransmitting on: 1 09/16/2024 05:26 PM FIREFIGHTER TYPE ONE
--- OUTSIDE RECORDS SUMMARY | 2025-06-13 02:00 | XMS_ITS ---
Author Organization [facility] Accounts Recei vable Address [address] [place] [address] Care Team Providers Care Warehouse Incentive Selector Name Role Phone Micah Ragsdale Unavailable [phone] Carrie Younger Unavailable [phone] REASON FOR VISIT APE, BWX, PEX gn Social History Sex Assigned At : Social History Observation Description Sex Assigned At Female Encounters Encounter Location Date Provider Diagnosis [address] [address] 06/13/2025 Carrie Younger Plan Of Treatment No Information Progress Notes * Janet JOHNSONDOB:1994 (30 yo F)Acc No.[id number]:06/13/2025 Patient: Andrews Janet almonte Provider: Andrews Younger [facility] :1995 A ge:30 Y S ex:Female Date:06/13/2025 Address:[address] [place] [address] [address], [facility] Patient's Default Facility:[facility] Subjective: * Chief Complaints: * A PE, BWX, PEX gn * Electronic signature of [facility] evita Younger on 07/17/2025 at 05:26 PM GLAZIER METAL FURNITURE Sign off status: Pending * Provider: Andrews Younger [facility] Date: Generated for Printi ng/Faxing/eTransmitting on: 09/16/2024 05:26 PM GLAZIER METAL FURNITURE
--- OUTSIDE RECORDS SUMMARY | 2025-07-17 17:26 | XMS_ITS | Patient Health Record ---
Author Organization [facility] Accounts Recei vable Address [address] [place] [address] Care Team Providers Care Body Care Manager Name Role Phone Micah Ragsdale Unavailable [phone] Spring Skinner Unavailable [phone] Carrie Younger Unavailable [phone] Allergies Allergen (clinical drug ingredient) Drug/Non Drug [...] cavity (V76.42) Active confirmed Problem Toothache (finding) (75285668) Tooth pain (K08.89) Active confirmed Problem At high risk for dental caries (finding) (306227770) Risk for dental caries, high (Z91.843) Active confirmed Vital Signs Heart Rate 74 Minute 04/11/2025 Blood pressure diastolic 69 mm Hg 04/11/2025 Height 65 in 04/11/2025 Blood pressure systolic 107 mm Hg 04/11/2025 Weight 171.6 lbs 04/11/2025 BMI 28.55 kg/m2 04/11/2025 Encounters Encounter Location Date Provider Diagnosis [address] [address] 03/13/2025 Carrie Aren Tooth pain K08.[address] [address] 04/11/2025 Abu Hasme [address] [place] [address] 07/29/2024 Micah Hasme Tooth pain K08.89 Assessments [...] Date Coverage End Date Medicai d-Denta l-Adult [place] [employer] [facility] [address] [place] [address] [phone] [id number] Janet Johnson Self - patient is the insured Medical (General) History Medical History History ICD Code Allergies ADD\ ADHD astma Anxeity and Depression Surgical History Surgery Date(Month/Year) C section Tub tied Gallbladder Hospitalization History Reason Date(Month/Year) see above
[2025-07-17 17:27] VITALS: BP 116/61; PULSE 109; RESP 17; TEMP 36.6; O2SAT 100; BMI 28.9
--- OUTSIDE RECORDS SUMMARY | 2025-07-17 17:27 | XMS_ITS | Patient Health Record ---
Author Organization [facility] Address [address] [place] [address] Care Team Providers Care Infusion Rn Name Role Phone Arben Sigala MD Primary Care Provider UnavailBeena Hightower Unavailable [phone] Allergies Allergen (clinical drug ingredient) Drug/Non Drug [...] Date Status Comme nts Influenza (whole), CPT 48224 Inactive Unknown 02/28/2019 Administered Influenza (whole), CPT 94448 Inactive Unknown 06/17/2019 Administered Social History Tobacco [...] Status W/U Status Risk Notes Problem visit (994683940) Encounter for routine follow-up (Z39.2) Active confirmed Problem Depression (198520807) Other depression (F32.89) Active confirmed Problem Gastroesophageal reflux disease (409524504) Gastroesophageal reflux disease, unspecified whether esophagitis present (K21.9) Active confirmed Plan Of Treatment No Information Insurance Providers Payer Name Payer Address Payer Phone Subscriber Number Group Number Insured Name Patient Relationship to Insured Coverage Start Date Coverage End Date [place] Medicaid [address] [place] [address] [phone] [id number] Janet Fisher Self - patient is the insured Medical (General) History Medical History History ICD Code Asthma Closed fracture of distal phalanx of fin calli Irregular periods Anemia Anxiety Chronic depression Irritable colon anxiety Surgical History Surgery Date(Month/Year) Bilateral tubal ligation 09/25/2019 section 2018 Cholecystectomy 2015 Hospitalization History Reason Date(Month/Year) see surgerys
[2025-07-17 18:26] LABS: Hematocrit 41.0 % (36-47); Hemoglobin 13.60 g/dL (11.27-16.99); Mean Corpuscular HGB Conc 33.2 g/dL (30-55); Mean Corpuscular Hemoglobin 30.6 pg (27-33); Mean Corpuscular Volume 92.1 fl (85-98); Nucleated Red Blood Cells % 0 %; Platelet Count 303 10^3/cmm (157-399); Red Blood Count 4.45 10^6/uL (3.85-5.65); White Blood Count 9.11 10^3/uL (3.29-11.43)
[2025-07-17 18:40] LABS: HCG, Serum Qual Negative (Negative)
[2025-07-17 18:44] LABS: Alanine Aminotransferase 17 U/L (0-33); Albumin Level 4.7 g/dL (3.5-5.2); Alkaline Phosphatase 66 U/L (35-105); Anion Gap 18.0 (5-19); Aspartate Amino Transferase 18 U/L (0-32); Blood Urea Nitrogen 15 mg/dL (6-20); Calcium 8.8 mg/dL (8.5-10.5); Carbon Dioxide 23 mmol/L (22-29); Chloride 103 mmol/L (98-107); Creatinine Clr Calc Pharmacy 94.8996; Globulin 3.2 g/dL (1.3-4.6); Glucose 100 mg/dL (65-115); Lipase 21 U/L (13-60); Osmolality Calculated 291 mOsm/kg (285-295); Potassium 4.0 mmol/L (3.5-5.1); Sodium 140 mmol/L (136-145); Total Protein 7.9 g/dL (6.6-8.7)
[2025-07-17 18:46] LABS: Glucose Urine UA Negative (Normal); Nitrate Urine Negative (Negative); Specific Gravity, Urine 1.012 (1.005-1.030)
[2025-07-17 18:46] LABS: Lactic Sepsis W/Reflex 1.0 mmol/L (0.5-2.2)
[2025-07-17 18:49] LABS: Add Urine Microscopic? YES
[2025-07-17 18:52] LABS: PCP Screen Urine Negative (Negative)
--- NOTE | 2025-07-17 19:42 | W.ED.GENADLT ---
HPI - General Adult General: Chief complaint: Nausea/Vomiting/Diarrhea Stated complaint: NVD Time Seen by Provider: 07/17/25 19:40 History of Present Illness: 30yo F w/pmhx of GERD, anxiety, s/p CCY and tubal ligation w/cc of periumbilical abdominal cramping for 3 to 5 days associated with occasional nausea and vomiting. Patient states she has had multiple loose stools today without blood. Patient denies pelvic pain, abnormal vaginal bleeding. She states she has had a tubal ligation, denies possibility of . Patient denies dysuria, hematuria though she states that she has been going to the restroom little bit more frequently. She denies any sore throat, cough, chest pain or shortness of breath. She states that her child has been ill with respiratory symptoms and a viral infection. Of note, she is complaining of anxiety. Related Data Home Medications ?Medication ?Instructions ?Recorded ?Confirmed ascorbic acid (vitamin C) 500 mg 250 mg PO DAILY 08/04/24 07/12/25 tablet (Vitamin C) xcpczkjb-yui-cvoj-FA-Ca carb-vit K 1 tab PO DAILY 08/04/24 07/12/25 18 mg iron-400 mcg-500 mg tablet mecobalamin (vitamin B12) 1,000 1,000 mcg PO DAILY 05/13/25 07/12/25 mcg chewable tablet (B12 Active) Previous Rx's ?Medication ?Instructions ?Recorded hydroxyzine HCl 25 mg tablet 25 mg PO Q6H PRN anxiety #14 tabs 07/12/25 buspirone 15 mg tablet 15 mg PO BID #60 tabs 07/14/25 hyoscyamine sulfate 0.125 mg tablet 0.125 mg PO QID PRN dyspepsia, 07/17/25 abdominal cramping #30 tabs nitrofurantoin 100 mg PO BID 3 days #6 caps 07/17/25 monohydrate/macrocrystals 100 mg capsule (Macrobid) ondansetron HCl 4 mg tablet 4 mg PO Q6H PRN nausea and 07/17/25 vomiting 5 days #20 tabs Allergies Allergy/AdvReac Type Severity Reaction Status Date / Time escitalopram (From Lexapro) Allergy ADR-Seizure Verified 07/12/25 11:45 sertraline (From Zoloft) Allergy ADR-Seizure Verified 07/12/25 11:45 PFS ED PFS: Medical History (Updated 07/17/25 @ 21:04 by Sherry Mcmullen MD) History of anemia Acid reflux Depression Anxiety IBS (irritable bowel syndrome) Insomnia Asthma Anemia Surgical History History of bilateral tubal ligation History of History of cholecystectomy Family History Grandmother Cancer Maternal-brain Mother Cancer breast/cervical Family/Other Cancer Maternal aunt-breast/cervical Family/Other Cancer, Onset Age: 4 Maternal fzsbx-ontcoiqk-ghxlon away d/t this Brother Psychiatric illness Sister Psychiatric illness Sister Psychiatric illness Other Bleeding disorder Diabetes Hypertension Lung disease Stroke Denies family history of CAD (coronary artery disease) Clotting disorder Dementia Hyperlipidemia Chronic kidney disease (CKD) Anesthesia complication Social History Smoking and tobacco/nicotine status: never used tobacco/nicotine Alcohol intake: never Substance/Drug Use: never Lives independently: Yes Marital status: Number of children: 5 Current occupational status: disabled Rosalind/Methodist: Gnosticist Special rosalind needs: No Agree to transfusion: Yes Physical Exam Narrative: EXAM NARRATIVE: Vital signs were reviewed. Patient is alert and oriented. Patient is breathing comfortably, no increased WOB or accessory muscle use. SpO2 is above 95% on RA. Patient has clear lungs b/l, no rhonchi, wheezing or crackles. No hypotension, mild tachycardia. Abdomen is soft, nondistended and nontender. Patient is moving all extremities, no deformity or gross injury. No lower extremity edema or asymmetry. Course Vital Signs: Vital signs: Vital Signs Temperature 97.9 F 07/17/25 17:27 Pulse Rate 109 H 07/17/25 17:27 Respiratory Rate 17 07/17/25 17:27 Blood Pressure 116/61 07/17/25 17:27 Pulse Oximetry 100 07/17/25 17:27 Oxygen Delivery Me thod Room Air 07/17/25 17:27 MDM - General Adult Medical Decision Making 30yo F w/cc of abd cramping, n/v/d. Differential diagnosis includes, but is not limited to, pancreatitis, cholecystitis, gastroenteritis, appendicitis, urinary tract infection, pyelonephritis, nephrolithiasis, SBO, diverticulitis, other. On initial exam, patient is hemodynamically stable and nontoxic appearing. Patient was evaluated with CBC, CMP, lipase, lactic acid, UA and screen. On initial exam she is centrically stable. Patient has a benign abdominal exam. She has only mild suprapubic discomfort. UA does not demonstrate a urinary tract infection clearly though she is complaining of increased frequency and suprapubic abdominal discomfort, will start her on Macrobid to cover for cystitis. Otherwise, she has a normal white blood cell count and normal lactic acid. She does not have any actionable electrolyte abnormalities, has normal kidney function, liver function and is not . She was treated with Zofran for nausea. Her presentation may be most consistent with gastroenteritis. She will be prescribed hyoscyamine, Zofran, advised on supportive care at home, given return precautions and advised to follow-up with her primary care physician on an outpatient basis. Lab Data 07/17/25 18:08 07/17/25 18:08 Laboratory Results WBC 9.11 10^3/uL (3.29-11.43) 07/17/25 18:08 RBC 4.45 10^6/uL (3.85-5.65) 07/17/25 18:08 Hgb 13.60 g/dL (11.27-16.99) 07/17/25 18:08 Hct 41.0 % (36-47) 07/17/25 18:08 MCV 92.1 fl (85-98) 07/17/25 18:08 MCH 30.6 pg (27-33) 07/17/25 18:08 MCHC 33.2 g/dL (30-55) 07/17/25 18:08 RDW 12.4 % (12.1-15.1) 07/17/25 18:08 Plt Count 303 10^3/cmm (157-399) 07/17/25 18:08 MPV 9.5 fL (7.4-10.4) 07/17/25 18:08 Neut % (Auto) 69.9 % 07/17/25 18:08 Lymph % (Auto) 19.8 % 07/17/25 18:08 Bosque % (Auto) 8.7 % 07/17/25 18:08 Eos % (Auto) 1.0 % 07/17/25 18:08 Baso % (Auto) 0.4 % 07/17/25 18:08 Neut # (Auto) 6.37 10^3/uL (1.8-7.7) 07/17/25 18:08 Lymph # (Auto) 1.8 10^3/uL (0.8-4.8) 07/17/25 18:08 [place] # (Auto) 0.8 10^3/uL (0.2-0.9) 07/17/25 18:08 Eos # (Auto) 0.1 10^3/uL (0.0-0.8) 07/17/25 18:08 Baso # (Auto) 0.0 10^3/uL (0.0-0.1) 07/17/25 18:08 Nucleated RBC % (auto) 0 % 07/17/25 18:08 Nucleated RBCs # 0.0 /100WBC 07/17/25 18:08 Sodium 140 mmol/L (136-145) 07/17/25 18:08 Potassium 4.0 mmol/L (3.5-5.1) 07/17/25 18:08 Chloride 103 mmol/L (98-107) 07/17/25 18:08 Carbon Dioxide 23 mmol/L (22-29) 07/17/25 18:08 Anion Gap 18.0 (5-19) 07/17/25 18:08 BUN 15 mg/dL (6-20) 07/17/25 18:08 Creatinine 0.9 mg/dL (0.5-0.9) 07/17/25 18:08 GFR Calculation 73.5 mL/min (90-130) L 07/17/25 18:08 Glucose 100 mg/dL (65-115) 07/17/25 18:08 Calculated Osmolality 291 mOsm/kg (285-295) 07/17/25 18:08 Lactic Acid 1.0 mmol/L (0.5-2.2) 07/17/25 18:08 Calcium 8.8 mg/dL (8.5-10.5) 07/17/25 18:08 Total Bilirubin 0.8 mg/dL (0.15-1.2) 07/17/25 18:08 AST 18 U/L (0-32) 07/17/25 18:08 ALT 17 U/L (0-33) 07/17/25 18:08 Alkaline Phosphatase 66 U/L (35-105) 07/17/25 18:08 Total Protein 7.9 g/dL (6.6-8.7) 07/17/25 18:08 Albumin 4.7 g/dL (3.5-5.2) 07/17/25 18:08 Globulin 3.2 g/dL (1.3-4.6) 07/17/25 18:08 Lipase 21 U/L (13-60) 07/17/25 18:08 HCG, Qual Negative (Negative) 07/17/25 18:08 Urine Color Yellow (Yellow) 07/17/25 18:28 Urine Appearance Clear (CLEAR) 07/17/25 18:28 Urine pH 7.5 (5-7) 07/17/25 18:28 Ur Specific [place] 1.012 (1.005-1.030) 07/17/25 18:28 Urine Protein Negative (Negative) 07/17/25 18:28 Urine Glucose (UA) Negative (Normal) 07/17/25 18:28 Urine Ketones Negative (Negative) 07/17/25 18:28 Urine Blood Negative (Negative) 07/17/25 18:28 Urine Nitrate Negative (Negative) 07/17/25 18:28 Urine Bilirubin Negative (Negative) 07/17/25 18:28 Urine Urobilinogen 1.0 mg/dL (Negative) 07/17/25 18:28 Ur Leukocyte Esterase Negative (Negative) 07/17/25 18:28 Urine RBC 0-2 /hpf (0-2) 07/17/25 18:28 Urine WBC 0-5 /hpf (0-5) 07/17/25 18:28 Ur Squamous Epith Cells 0-5 /hpf (0-5) 07/17/25 18:28 Amorphous Sediment Not Reportable 07/17/25 18:28 Urine Bacteria None seen /hpf (NONE) 07/17/25 18:28 Hyaline Casts 0-4 /lpf H 07/17/25 18:28 Urine Opiates Screen Negative ng/mL (Negative) 07/17/25 18:28 Ur Barbiturates Screen Negative ng/mL (Negative) 07/17/25 18:28 Ur Phencyclidine Scrn Negative ng/mL (Negative) 07/17/25 18:28 Ur Amphetamines Screen Negative ng/mL (Negative) 07/17/25 18:28 U Benzodiazepines Scrn Positive ng/mL (Negative) H 07/17/25 18:28 Urine Cocaine Screen Negative ng/mL (Negative) 07/17/25 18:28 U Marijuana (THC) Screen Negative ng/mL (Negative) 07/17/25 18:28 No radiology studies performed this visit Discharge Plan Discharge Patient Disposition: Home Clinical Impression: Gastroenteritis, Cystitis, Anxiety Condition: Stable Prescriptions: New nitrofurantoin monohyd/m-cryst [Macrobid] 100 mg capsule 100 mg PO BID 3 Days Qty: 6 0RF Rx Instructions: must administer with a meal/food ondansetron HCl 4 mg tablet 4 mg PO Q6H PRN (Reason: nausea and vomiting) 5 Days Qty: 20 0RF hyoscyamine sulfate 0.125 mg tablet 0.125 mg PO QID PRN (Reason: dyspepsia, abdominal cramping) Qty: 30 0RF No Action mecobalamin (vitamin B12) [B12 Active] 1,000 mcg tablet,chewable 1,000 mcg PO DAILY buspirone 15 mg tablet 15 mg PO BID Qty: 60 0RF ascorbic acid (vitamin C) [Vitamin C] 500 mg Tablet 250 mg PO DAILY Women's Multivitamin 18 mg iron-400 mcg-500 mg Tablet 1 tab PO DAILY hydroxyzine HCl 25 mg tablet 25 mg PO Q6H PRN (Reason: anxiety) Qty: 14 0RF Discharge Orders: Discharge ED (Routine); Ordered 07/17/25 Ordered By: Sherry Mcmullen Referrals: Arben Sigala MD [Primary Care Provider, Family Practice] Patient Instructions: Opioid Safety, Pain Management, Patient Portal & Kelly Instructions, Gastroenteritis (ED), Urinary Tract Infection - Women Activity Restrictions/Additional Instructions: Please continue to monitor your condition closely at home. Take Ibuprofen 400mg and Tylenol 500-1000mg every six hours for pain and inflammation. You may also try hyoscyamine for abdominal cramps and spasms. You may take Zofran for nausea and vomiting. Given your suprapubic abdominal discomfort, increased urinary frequency, you have been treated with antibiotics for cystitis. Please take your antibiotics as prescribed. If your condition worsens or additional concerns arise, please return promptly to the emergency department for reassessment. Follow up with your primary care doctor in one week. Follow-up with your mental health home visit field care manager regarding your anxiety. Print Language: Greek Coding Level of Care Code ED Senior Coldfusion Developer for Zach Moe
[2025-07-17 21:00] VITALS: BP 106/80; PULSE 92; O2SAT 99
[2025-07-17] MEDS: ondansetron hcl ODT 4 mg Tab PO (21:04)
== END 2025-07-17 21:37 | disposition home or self-care (01) ==
PROVIDERS: Emergency Medicine; Emergency Provider Emergency Medicine
DX: K52.9 Noninfective gastroenteritis and colitis, unspecified (principal); N30.90 Cystitis, unspecified without hematuria; F41.9 Anxiety disorder, unspecified
CPT/HCPCS: 36415; 80053; 80306; 81001; 83605; 83690; 84703; 85025; 99283; Q0162

== ENCOUNTER 2025-07-23 13:26 | Emergency (ER) | payer MEDICAID, SELFPAY ==
--- OUTSIDE RECORDS SUMMARY | 2024-02-06 02:00 | XMS_ITS ---
Author Organization [facility] Accounts Recei vable Address [address] [place] [address] Care Team Providers Care Rotary Soil Stabilizer Name Role Phone Micah Ragsdale Unavailable [phone] Spring Skinner Unavailable [phone] REASON FOR VISIT [email or web address] Social History Sex Assigned At : Social History Observation Description Sex Assigned At Female Encounters Encounter Location Date Provider Diagnosis [address] [address] 02/06/2024 Spring Skinner Plan Of Treatment No Information Progress Notes * Janet JOHNSONDOB:1994 (30 yo F)Acc No.[id number]:02/06/2024 Patient: Janet Thornton Provider: Kostas Skinner RDH :1995 A ge:28 Y S ex:Female Date:02/06/2024 Address:[address] [place] [address], [facility], [place] Patient's Default Facility:B [facility] Subjective: * Chief Complaints: * A pe.plp Billing Information: * Procedure Codes: * Electronic signature of Spring Skinner RDH on 07/23/2025 at 01:31 PM SKELP PROCESSOR Sign off status: Pending * Provider: Kostas Skinner RDH Date: 0 02/06/2024 Generated for Printi ng/Faxing/eTransmitting on: 1 09/22/2024 01:31 PM SKELP PROCESSOR
--- OUTSIDE RECORDS SUMMARY | 2024-05-29 05:00 | XMS_ITS ---
Author Organization [facility] Accounts Recei vable Address [address] [place] [address] Care Team Providers Care Harvest Worker Name Role Phone Micah Ragsdale Unavailable [phone] Lopez Lee Unavailable REASON FOR VISIT ape Social History Sex Assigned At : Social History Observation Description Sex Assigned At Female Encounters Encounter Location Date Provider Diagnosis [address] [address] 05/29/2024 Lopez Lee Plan Of Treatment No Information Progress Notes * Janet JOHNSONDOB:1994 (30 yo F)Acc No.[id number]:05/29/2024 Patient: Mikki Thorntonney Provider: Lissy Serrato RDH :1995 A ge:29 Y S ex:Female Date:05/29/2024 Address:[address] [place] [address], [facility] Patient's Default Facility:B [facility] Subjective: * Chief Complaints: * A pe Billing Information: * Procedure Codes: * Electronic signature of Quinn Lee RDH on 07/23/2025 at 01:31 PM OFFICE DIRECTOR Sign off status: Pending * Provider: Lissy Serrato RDH Date: 0 05/29/2024 Generated for Karrii ng/Faaminahg/eTransmitting on: 1 09/22/2024 01:31 PM OFFICE DIRECTOR
--- OUTSIDE RECORDS SUMMARY | 2025-01-10 02:00 | XMS_ITS ---
Author Organization [facility] Accounts Recei vable Address [address] [place] [address] Care Team Providers Care Office Mail Clerk Name Role Phone Micah Ragsdale Unavailable [phone] Brody Spring Unavailable [phone] REASON FOR VISIT comp, xr, reeval tx.plp Social History Sex Assigned At : Social History Observation Description Sex Assigned At Female Encounters Encounter Location Date Provider Diagnosis [address] [address] 01/10/2025 Spring Skinner Plan Of Treatment No Information Progress Notes * Janet JOHNSONDOB:1994 (30 yo F)Acc No.[id number]:01/10/2025 Progress Note Patient: Mikki Thorntonney Provider: Kostas Skinner RDH :1995 A ge:29 Y S ex:Female Date:01/10/2025 Address:[address] [place] [address] [address], [facility], [place] Patient's Default Facility:B [facility] Subjective: * Chief Complaints: * C omp, xr, reeval tx.plp * Electronic signature of Spring Skinner RDH on 07/23/2025 at 01:31 PM EXTRUSION DIE COORDINATOR Sign off status: Pending * Provider: Kostas Skinner RDH Date: 0 01/10/2025 Generated for Printi ng/Faxing/eTransmitting on: 1 09/22/2024 01:31 PM EXTRUSION DIE COORDINATOR
--- OUTSIDE RECORDS SUMMARY | 2025-06-13 02:00 | XMS_ITS ---
Author Organization [facility] Accounts Recei vable Address [address] [place] [address] Care Team Providers Care Dust Collector Treater Name Role Phone Micah Ragsdale Unavailable [phone] ArenCarrie lopez Unavailable [phone] REASON FOR VISIT APE, BWX, PEX gn Social History Sex Assigned At : Social History Observation Description Sex Assigned At Female Encounters Encounter Location Date Provider Diagnosis [address] [address] 06/13/2025 Carrie Younger Plan Of Treatment No Information Progress Notes * Janet JOHNSONDOB:1994 (30 yo F)Acc No.[id number]:06/13/2025 Patient: Andrews Janet almonte Provider: Andrews Younger [facility] :1995 A ge:30 Y S ex:Female Date:06/13/2025 Address:[address] [place] [address] [address], [facility] Patient's Default Facility:[facility] Subjective: * Chief Complaints: * A PE, BWX, PEX gn * Electronic signature of [facility] evita Younger on 07/23/2025 at 01:31 PM BACKPACKERS MANAGER Sign off status: Pending * Provider: Andrews Younger [facility] Date: Generated for Printi ng/Faxing/eTransmitting on: 09/22/2024 01:31 PM BACKPACKERS MANAGER
[2025-07-23 13:28] VITALS: BP 124/82; PULSE 100; RESP 16; TEMP 36.7; O2SAT 100
--- OUTSIDE RECORDS SUMMARY | 2025-07-23 13:31 | XMS_ITS | Patient Health Record ---
Author Organization [facility] Accounts Recei vable Address [address] [place] [address] Care Team Providers Care Sole Rougher Name Role Phone Micah Ragsdale Unavailable [phone] SkinnerSpring Unavailable [phone] Carrie Younger Unavailable [phone] Allergies Allergen (clinical drug ingredient) Drug/Non Drug [...] cavity (V76.42) Active confirmed Problem Toothache (finding) (98176757) Tooth pain (K08.89) Active confirmed Problem At high risk for dental caries (finding) (264580161) Risk for dental caries, high (Z91.843) Active confirmed Vital Signs Heart Rate 74 Minute 04/11/2025 Blood pressure diastolic 69 mm Hg 04/11/2025 Height 65 in 04/11/2025 Blood pressure systolic 107 mm Hg 04/11/2025 Weight 171.6 lbs 04/11/2025 BMI 28.55 kg/m2 04/11/2025 Encounters Encounter Location Date Provider Diagnosis [address] [address] 03/13/2025 Carrie Aren Tooth pain K08.[address] [address] 04/11/2025 Abu Hasme [address] [place] [address] 07/29/2024 Abu Hasme Tooth pain K08.89 Assessments Encounter Date [...] Date Coverage End Date Medicai d-Denta l-Adult [place] [facility] [address] [place] [address] [id number] Janet Johnson Self - patient is the insured Medical (General) History Medical History History ICD Code Allergies ADD\ ADHD astma Anxeity and Depression Surgical History Surgery Date(Month/Year) C section Tub tied Gallbladder Hospitalization History Reason Date(Month/Year) see above
--- OUTSIDE RECORDS SUMMARY | 2025-07-23 13:31 | XMS_ITS | Patient Health Record ---
Author Organization [facility] Address [address] [place] [address] Care Team Providers Care Gang Boss Name Role Phone Arben Sigala MD Primary Care Provider UnavailBeena Hightower Unavailable [phone] Allergies Allergen (clinical drug ingredient) Drug/Non Drug [...] Date Status Comme nts Influenza (whole), CPT 53980 Inactive Unknown 02/28/2019 Administered Influenza (whole), CPT 35328 Inactive Unknown 06/17/2019 Administered Social History Tobacco [...] Status W/U Status Risk Notes Problem visit (800784660) Encounter for routine follow-up (Z39.2) Active confirmed Problem Depression (982725215) Other depression (F32.89) Active confirmed Problem Gastroesophageal reflux disease (219025928) Gastroesophageal reflux disease, unspecified whether esophagitis present (K21.9) Active confirmed Plan Of Treatment No Information Insurance Providers Payer Name Payer Address Payer Phone Subscriber Number Group Number Insured Name Patient Relationship to Insured Coverage Start Date Coverage End Date [place] Medicaid [address] [place] [address] [id number] Janet Fisher Self - patient is the insured Medical (General) History Medical History History ICD Code Asthma Closed fracture of distal phalanx of fin calli Irregular periods Anemia Anxiety Chronic depression Irritable colon anxiety Surgical History Surgery Date(Month/Year) Cholecystectomy 2015 section 2018 Bilateral tubal ligation 09/25/2019 Hospitalization History Reason Date(Month/Year) see surgerys
--- NOTE | 2025-07-23 14:08 | W.ED.ANXIETY ---
HPI - Anxiety General: Chief Complaint: Anxiety Stated Complaint: Medication issues doesnt feel right Time Seen by Provider: 07/23/25 13:56 History of Present Illness: Patient is a 30-year-old female with anxiety presented to the emergency room with worsening anxiety. She has been here 4 times in the last 2 weeks. Patient was initially prescribed lorazepam, that has worked in the past. This has now caused her to feel like she is enraged, which she does not normally have. She states today that when she took her BuSpar, after she took this, she feels like bilateral hands are fota-duh-zuysvuz, her chest hurts, and her heart is racing. She has much worse worsening anxiety today. Nothing brought this on. She has been trying to coordinate with her primary care physician. She does not have any issues with suicide ideation, suicide thoughts, suicide plan, or homicide. She states her anxiety is worsening, and she would like to get this under control. She is tearful regarding her anxiety, and the effect it has on her little boy. Associated symptoms: Reports chest pain and palpitations; Deny chills, fever(s), headache(s), nausea or vomiting Related Data Home Medications ?Medication ?Instructions ?Recorded ?Confirmed ascorbic acid (vitamin C) 500 mg 250 mg PO DAILY 08/04/24 07/12/25 tablet (Vitamin C) bprrmlbd-ngw-jwph-FA-Ca carb-vit K 1 tab PO DAILY 08/04/24 07/12/25 18 mg iron-400 mcg-500 mg tablet mecobalamin (vitamin B12) 1,000 1,000 mcg PO DAILY 05/13/25 07/12/25 mcg chewable tablet (B12 Active) Previous Rx's ?Medication ?Instructions ?Recorded hydroxyzine HCl 25 mg tablet 25 mg PO Q6H PRN anxiety #14 tabs 07/12/25 buspirone 15 mg tablet 15 mg PO BID #60 tabs 07/14/25 hyoscyamine sulfate 0.125 mg tablet 0.125 mg PO QID PRN dyspepsia, 07/17/25 abdominal cramping #30 tabs lamotrigine 25 mg tablet (Lamictal) 25 mg PO DAILY 30 days #30 tabs 07/23/25 olanzapine 2.5 mg tablet (Zyprexa) 2.5 mg PO BID PRN anxiety #60 tabs 07/23/25 Allergies Allergy/AdvReac Type Severity Reaction Status Date / Time escitalopram (From Lexapro) Allergy ADR-Seizure Verified 07/12/25 11:45 sertraline (From Zoloft) Allergy ADR-Seizure Verified 07/12/25 11:45 Review of Systems General: Reports: 10 or more systems reviewed and unremarkable except in HPI and below Const: Denies: fever(s) or chills Eyes: Denies: change in vision or blurry vision ENMT: Denies: throat pain or mouth pain Card: Reports: chest pain and palpitations; Denies: irregular heart rhythm, swelling of feet/ankles, lightheadedness or dyspnea on exertion Resp: Denies: dyspnea or productive cough GI: Denies: abdominal pain, nausea or vomiting : Denies: flank pain or difficulty voiding Musc: Denies: neck pain or back pain Skin/Breast: Denies: rash or pruritus Neuro: Denies: headache(s) or numbness in extremities Psych: Reports: anxiety and panic attacks; Denies: hopelessness, visual hallucinations, suicidal ideation or homicidal ideation Endo: Denies: polyuria or polydipsia Edi/Lymph: Denies: easy bruising or easy bleeding All/Imm: Denies: urticaria or throat swelling PFSH ED PFSH: Medical History (Updated 07/23/25 @ 14:59 by ARTURO Muro) History of anemia Acid reflux Depression Anxiety IBS (irritable bowel syndrome) Insomnia Asthma Anemia Surgical History History of bilateral tubal ligation History of History of cholecystectomy Family History Grandmother Cancer Maternal-brain Mother Cancer breast/cervical Family/Other Cancer Maternal aunt-breast/cervical Family/Other Cancer, Onset Age: 4 Maternal syhrx-sxdwinws-nlrghq away d/t this Brother Psychiatric illness Sister Psychiatric illness Sister Psychiatric illness Other Bleeding disorder Diabetes Hypertension Lung disease Stroke Denies family history of CAD (coronary artery disease) Clotting disorder Dementia Hyperlipidemia Chronic kidney disease (CKD) Anesthesia complication Social History Smoking and tobacco/nicotine status: never used tobacco/nicotine Alcohol intake: never Substance/Drug Use: never Lives independently: Yes Marital status: Number of children: 5 Current occupational status: disabled Rosalind/Gnosticist: Orthodoxy Special rosalind needs: No Agree to transfusion: Yes Physical Exam Const: COMMON NORMALS: patient oriented x3 HENMT: COMMON NORMALS: normocephalic and atraumatic HEAD & SCALP: normocephalic and atraumatic Neck/C-Spine: COMMON NORMALS: full ROM and no lymphadenopathy Lymph: LYMPHATIC: no lymphadenopathy noted Chest: COMMONS NORMALS: normal inspection of the chest and normal palpation of entire chest wall Resp: COMMON NORMALS: normal respiratory effort, No retractions and clear to auscultation bilaterally AUSCULTATION: clear to auscultation bilaterally Cardio: COMMON NORMALS: regular rate and regular rhythm RATE: regular rate RHYTHM: regular rhythm GI: COMMON NORMALS: Normal to inspection, nondistended, normoactive bowel sounds present, Soft to palpation, non-tender and No hepatosplenomegaly present PALPATION: Yes Soft to palpation and Yes No hepatosplenomegaly present Neuro: COMMON NORMALS: patient oriented x3 and CN's II-XII intact bilaterally Psych: COMMON NORMALS: mental status grossly normal, Normal thought process present, cooperative and speech normal ATTITUDE: Yes calm and Yes engaged ACTIVITY/MOTOR BEHAVIOR: Yes appropriate eye contact and Yes psychomotor agitation SPEECH: Yes normal speech and Yes rapid MOOD & AFFECT: No euthymic mood and No depressed mood THOUGHT PROCESS: Normal thought process present ATTENTION/CONCENTRATION: Yes attention grossly intact INSIGHT: Good insight present (Psych), Fair insight present (Psych) and Limited insight present (Psych) JUDGEMENT: Good judgement present (Psych) Course Reevaluation(s): Reevaluation #1: Discussed with patient 20 minutes after intake. She feels moderately better. Reevaluation #2: Discussed with patient 50 minutes after intake of Zyprexa. She feels completely better. Vital Signs: Vital signs: Vital Signs Temperature 98.1 F 07/23/25 13:28 Pulse Rate 100 07/23/25 13:28 Respiratory Rate 16 07/23/25 13:28 Blood Pressure 124/82 07/23/25 13:28 Pulse Oximetry 100 07/23/25 13:28 Oxygen Delivery Me thod Room Air 07/23/25 13:28 MDM - Anxiety Medical Decision Making Patient comes forth with worsening anxiety issues. She initially took her buspirone when she had the zndm-sjw-aymabyl on bilateral hands that radiated up her arms, and her primary care recommended she repeat this dose. She was just taking 2.5 mg of the 5 mg. She stated it did help the issue, however she continues to be anxious. She is very sensitive to medications. She wants to get this under control. She is not having suicide issues or thoughts or plan, just severe and worsening anxiety. We had a candid discussion regarding a plan to get this under control. I recommended starting low-dose Lamictal with low-dose breakthrough olanzapine/Zyprexa. We will trial low-dose Zyprexa here to see if this helps her, and she desires wanting to follow-up with her primary care to continue working on her regimen to control her symptoms. Medical Records I reviewed the patient's medical records. No radiology studies performed this visit Discharge Plan Discharge Patient Disposition: Home Clinical Impression: Anxiety Condition: Stable Prescriptions: New lamotrigine [Lamictal] 25 mg tablet 25 mg PO DAILY 30 Days Qty: 30 0RF Rx Instructions: Take 1 p.o. daily in AM. olanzapine [Zyprexa] 2.5 mg tablet 2.5 mg PO BID PRN (Reason: anxiety) Qty: 60 0RF Rx Instructions: Take 1 by mouth up to 4 times a day as needed for anxiety. No Action mecobalamin (vitamin B12) [B12 Active] 1,000 mcg tablet,chewable 1,000 mcg PO DAILY buspirone 15 mg tablet 15 mg PO BID Qty: 60 0RF ascorbic acid (vitamin C) [Vitamin C] 500 mg Tablet 250 mg PO DAILY Women's Multivitamin 18 mg iron-400 mcg-500 mg Tablet 1 tab PO DAILY hydroxyzine HCl 25 mg tablet 25 mg PO Q6H PRN (Reason: anxiety) Qty: 14 0RF hyoscyamine sulfate 0.125 mg tablet 0.125 mg PO QID PRN (Reason: dyspepsia, abdominal cramping) Qty: 30 0RF Discharge Orders: Discharge ED (Routine); Ordered 07/23/25 Ordered By: Melly Malave Referrals: Arben Sigala MD [Primary Care Provider, Family Practice] Discharge Diet: Usual diet Discharge Activity: Resume usual activity Patient Instructions: Anxiety (ED), Patient Portal & Kelly Instructions Activity Restrictions/Additional Instructions: - Take good care of yourself. Make sure you take some quiet time for yourself daily. Recommended is 15-30 minutes when you have your Kenny and are able to take some downtime. This can be for meditation, a nice walk. These all help with anxiety. -Having a well-balanced meal with plenty of protein and less sugar also helps with anxiety - We also discussed taking zbzr-kzc-tmcxdem magnesium at night. This will be in alphabetical order order at the pharmacy. It is a relaxer, and therefore is recommended to take at night. Typically a starting dose is 250 mg at night. - Return to the ED if you have worsening anxiety - Please follow-up with your doctor regarding feedback regarding the Lamictal, also called lamotrigine, and the Zyprexa, also called olanzapine. Thank you for choosing [facility] for your healthcare needs today. You have been screened and evaluated and felt safe for discharge. Health conditions do change or evolve sometimes and as such it is important that you follow up with your Primary Doctor to be re checked, 3-5 days is a general good time frame for follow up. You are always welcome to return to the ED for re assessment if your symptoms are worsening or you have new concerns Print Language: Albanian Coding Level of Care Code ED Cribbing Setter for Zach Moe
== END 2025-07-23 15:14 | disposition home or self-care (01) ==
PROVIDERS: Emergency Provider Physician Assistant
DX: F41.9 Anxiety disorder, unspecified (principal)
CPT/HCPCS: 99283; J9999

== ENCOUNTER 2025-07-30 17:32 | Emergency (ER) | payer MEDICAID, SELFPAY ==
--- OUTSIDE RECORDS SUMMARY | 2024-02-06 02:00 | XMS_ITS ---
Author Organization [facility] Accounts Recei vable Address [address] [place] [address] Care Team Prov[address] Care [address] Car Mechanic Name Role Phone Micah Ragsdale Unavailable [phone] Spring Skinner Unavailable [phone] REASON FOR VISIT [email or web address] Social History Sex Assigned At : Social History Observation Description Sex Assigned At Female Encounters Encounter Location Date Provider Diagnosis [address] [address] 02/06/2024 Spring Skinner Plan Of Treatment No Information Progress Notes * Janet JOHNSONDOB:1994 (30 yo F)Acc No.[id number]:02/06/2024 Patient: Janet Thornton Provider: Kostas Skinner RDH :1995 A ge:28 Y S ex:Female Date:02/06/2024 Address:[address] [place] [address], [facility] Patient's Default Facility:B [facility] Subjective: * Chief Complaints: * A pe.plp Billing Information: * Procedure Codes: * Electronic signature of Spring Skinner RDH on 07/30/2025 at 06:55 PM SPRINKLER TRUCK DRIVER Sign off status: Pending * Provider: Kostas Skinner RDH Date: 02/06/2024 Generated for Printi ng/Faxing/eTransmitting on: 1 09/29/2024 06:55 PM SPRINKLER TRUCK DRIVER
--- OUTSIDE RECORDS SUMMARY | 2024-05-29 05:00 | XMS_ITS ---
Author Organization [facility] Accounts Recei vable Address [address] [place] [address] Care Team Providers Care Road Traffic Controller Name Role Phone Micah Ragsdale Unavailable [phone] Lopez Lee Unavailable REASON FOR VISIT ape Social History Sex Assigned At : Social History Observation Description Sex Assigned At Female Encounters Encounter Location Date Provider Diagnosis [address] [address] 05/29/2024 Lopez Lee Plan Of Treatment No Information Progress Notes * Janet JOHNSONDOB:1994 (30 yo F)Acc No.[id number]:05/29/2024 Patient: Sherrill Thorntontney Provider: Lissy Serrato RDH :1995 A ge:29 Y S ex:Female Date:05/29/2024 Address:[address] [place] [address], [facility] Patient's Default Facility:B [facility] Subjective: * Chief Complaints: * A pe Billing Information: * Procedure Codes: * Electronic signature of Quinn Lee RDH on 07/30/2025 at 06:54 PM CLOTH PRINTING INSPECTOR Sign off status: Pending * Provider: Lissy Serrato RDH Date: 0 05/29/2024 Generated for Karrii ng/Faaminahg/eTransmitting on: 1 09/29/2024 06:54 PM CLOTH PRINTING INSPECTOR
--- OUTSIDE RECORDS SUMMARY | 2025-01-10 02:00 | XMS_ITS ---
Author Organization [facility] Accounts Recei vable Address [address] [place] [address] Care Team Providers Care Dispatch Specialist Name Role Phone Micah Ragsdale Unavailable [phone] Brody Spring Unavailable [phone] REASON FOR VISIT comp, xr, reeval tx.plp Social History Sex Assigned At : Social History Observation Description Sex Assigned At Female Encounters Encounter Location Date Provider Diagnosis [address] [address] 01/10/2025 Spring Skinner Plan Of Treatment No Information Progress Notes * Janet JOHNSONDOB:1994 (30 yo F)Acc No.[id number]:01/10/2025 Progress Note Patient: Andrews almonte Janet Provider: Kostas Skinner RDH :1995 A ge:29 Y S ex:Female Date:01/10/2025 Address:[address] [place] [address], [facility], [place] Patient's Default Facility:B [facility] Subjective: * Chief Complaints: * C omp, xr, reeval tx.plp * Electronic signature of Spring Skinner RDH on 07/30/2025 at 06:54 PM CONTRACT IMPLEMENTATION ANALYST Sign off status: Pending * Provider: Kostas Skinner RDH Date: 0 01/10/2025 Generated for Printi ng/Faxing/eTransmitting on: 1 09/29/2024 06:54 PM CONTRACT IMPLEMENTATION ANALYST
--- OUTSIDE RECORDS SUMMARY | 2025-06-13 02:00 | XMS_ITS ---
Author Organization [facility] Accounts Recei vable Address [address] [place] [address] Care Team Providers Care Steel Plate Caulker Name Role Phone Micah Ragsdale Unavailable [phone] Carrie Younger Unavailable [phone] REASON FOR VISIT APE, BWX, PEX gn Social History Sex Assigned At : Social History Observation Description Sex Assigned At Female Encounters Encounter Location Date Provider Diagnosis [address] [address] 06/13/2025 Carrie Younger Plan Of Treatment No Information Progress Notes * Janet JOHNSONDOB:1994 (30 yo F)Acc No.[id number]:06/13/2025 Patient: Andrews Janet almonte Provider: Andrews Younger [facility] :1995 A ge:30 Y S ex:Female Date:06/13/2025 Address:[address] [place] [address] [address], [facility], [place] Patient's Default Facility:B [facility] Subjective: * Chief Complaints: * A PE, BWX, PEX gn * Electronic signature of [facility] evita Younger on 07/30/2025 at 06:54 PM BACKING IN MACHINE TENDER Sign off status: Pending * Provider: Andrews Younger [facility] Date: Generated for Printi ng/Faxing/eTransmitting on: 09/29/2024 06:54 PM BACKING IN MACHINE TENDER
[2025-07-30 17:39] VITALS: BP 127/85; PULSE 81; RESP 18; TEMP 37.1; O2SAT 98; BMI 28.6
[2025-07-30 18:04] LABS: Hematocrit 39.6 % (36-47); Hemoglobin 12.90 g/dL (11.27-16.99); Mean Corpuscular HGB Conc 32.6 g/dL (30-55); Mean Corpuscular Hemoglobin 30.2 pg (27-33); Mean Corpuscular Volume 92.7 fl (85-98); Nucleated Red Blood Cells % 0 %; Platelet Count 270 10^3/cmm (157-399); Red Blood Count 4.27 10^6/uL (3.85-5.65); White Blood Count 8.47 10^3/uL (3.29-11.43)
[2025-07-30 18:17] LABS: HCG, Serum Qual Negative (Negative)
[2025-07-30 18:39] LABS: Alanine Aminotransferase 11 U/L (0-33); Albumin Level 4.5 g/dL (3.5-5.2); Alkaline Phosphatase 65 U/L (35-105); Anion Gap 16.0 (5-19); Aspartate Amino Transferase 13 U/L (0-32); Blood Urea Nitrogen 10 mg/dL (6-20); Calcium 8.4 mg/dL (8.5-10.5); Carbon Dioxide 24 mmol/L (22-29); Chloride 105 mmol/L (98-107); Globulin 2.8 g/dL (1.3-4.6); Glucose 99 mg/dL (65-115); Lipase 21 U/L (13-60); Osmolality Calculated 291 mOsm/kg (285-295); Potassium 4.0 mmol/L (3.5-5.1); Sodium 141 mmol/L (136-145); Total Protein 7.3 g/dL (6.6-8.7)
[2025-07-30 18:47] LABS: Glucose Urine UA Negative (Normal); Nitrate Urine Negative (Negative); Specific Gravity, Urine 1.017 (1.005-1.030)
[2025-07-30 18:52] LABS: Add Urine Microscopic? YES
--- OUTSIDE RECORDS SUMMARY | 2025-07-30 18:54 | XMS_ITS | Patient Health Record ---
Author Organization [facility] Accounts Recei vable Address [address] [place] [address] Care Team Providers Care Plant Electrician Name Role Phone Micah Ragsdale Unavailable [phone] [employer] Unavailable [phone] Carrie Younger Unavailable [phone] Allergies Allergen (clinical drug ingredient) Drug/Non Drug [...] cavity (V76.42) Active confirmed Problem Toothache (finding) (84856841) Tooth pain (K08.89) Active confirmed Problem At high risk for dental caries (finding) (375276028) Risk for dental caries, high (Z91.843) Active confirmed Vital Signs Heart Rate 74 Minute 04/11/2025 Blood pressure diastolic 69 mm Hg 04/11/2025 Height 65 in 04/11/2025 Blood pressure systolic 107 mm Hg 04/11/2025 Weight 171.6 lbs 04/11/2025 BMI 28.55 kg/m2 04/11/2025 Encounters Encounter Location Date Provider Diagnosis [address] [id number] 03/13/2025 Carrie Aren Tooth pain K08.[address] [address] 04/11/2025 [facility] Assessments Encounter Date Diagnosis (ICD Code) Assessment Notes Treatment Notes Treatment Clinical Notes Section Notes 03/13/2025 Tooth pain (ICD-10 - K08.89) 03/13/2025 Other A Healthy Lifestyle: Care Instructions material was printed 04/11/2025 Other A Healthy Lifestyle: Care Instructions material was printed Plan Of Treatment No Information Insurance Providers Payer Name Payer Address Payer Phone Subscriber Number Group Number Insured Name Patient Relationship to Insured Coverage Start Date Coverage End Date [employer] [address] [place] [address] [phone] [id number] Janet Johnson Self - patient is the insured Medical (General) History Medical History History ICD Code Allergies ADD\ ADHD astma Anxeity and Depression Surgical History Surgery Date(Month/Year) C section Tub tied Gallbladder Hospitalization History Reason Date(Month/Year) see above
--- OUTSIDE RECORDS SUMMARY | 2025-07-30 18:55 | XMS_ITS | Patient Health Record ---
Author Organization [facility] Address [address] [place] [address] Care Team Providers Care Needle Grader Name Role Phone Arben Sigala MD Primary Care Provider UnavailBeena Hightower Unavailable [phone] Allergies Allergen (clinical drug ingredient) Drug/Non Drug [...] Date Status Comme nts Influenza (whole), CPT 35091 Inactive Unknown 02/28/2019 Administered Influenza (whole), CPT 89691 Inactive Unknown 06/17/2019 Administered Social History Tobacco [...] Status W/U Status Risk Notes Problem visit (611295931) Encounter for routine follow-up (Z39.2) Active confirmed Problem Depression (084842410) Other depression (F32.89) Active confirmed Problem Gastroesophageal reflux disease (422605533) Gastroesophageal reflux disease, unspecified whether esophagitis present (K21.9) Active confirmed Plan Of Treatment No Information Insurance Providers Payer Name Payer Address Payer Phone Subscriber Number Group Number Insured Name Patient Relationship to Insured Coverage Start Date Coverage End Date [place] [address] [place] [address] [phone] [id number] Janet Fisher Self - patient is the insured Medical (General) History Medical History History ICD Code Asthma Closed fracture of distal phalanx of fin calli Irregular periods Anemia Anxiety Chronic depression Irritable colon anxiety Surgical History Surgery Date(Month/Year) Bilateral tubal ligation 09/25/2019 section 2018 Cholecystectomy 2015 Hospitalization History Reason Date(Month/Year) see surgerys
--- NOTE | 2025-07-30 21:32 | ED_ITS ---
HPI - Nausea/Vomiting/Diarrhea 2 General: Chief complaint: Nausea/Vomiting/Diarrhea Stated complaint: Anxiety N/V ABD Pain after she took Meds Time Seen by Provider: 07/30/25 18:14 Source: patient Mode of arrival: ambulatory Limitations: no limitations History of Present Illness: Patient is a 30-year-old female presents the emergency department complaining of nausea after starting olanzapine today. States that this is a new medication for her, and has developed the symptoms of worsening anxiety, shaking chills, nausea, and abdominal pain. States that she is exhausted but cannot go to bed. No suicidal ideations or homicidal ideations. No hallucinations. She is clinically stable at this time with no further complaints. Has been seen here for similar previously. MD elicited complaint: nausea Onset (ago): hour(s) Associated nausea: Yes Context: new medication Associated symtoms: Reports anxiety and nausea; Denies change in vision, chest pain, dysuria, fatigue, headache(s) or palpitations Related Data Home Medications ?Medication ?Instructions ?Recorded ?Confirmed ascorbic acid (vitamin C) 500 mg 250 mg PO DAILY 08/0407/12/25 tablet (Vitamin C) hiuwvqmq-jus-suyt-FA-Ca carb-vit K 1 tab PO DAILY 07/1307/12/25 18 mg iron-400 mcg-500 mg tablet mecobalamin (vitamin B12) 1,000 1,000 mcg PO DAILY 11/0507/12/25 mcg chewable tablet (B12 Active) Previous Rx's ?Medication ?Instructions ?Recorded hydroxyzine HCl 25 mg tablet 25 mg PO Q6H PRN anxiety #14 tabs 07/12/25 buspirone 15 mg tablet 15 mg PO BID #60 tabs hyoscyamine sulfate 0.125 mg tablet 0.125 mg PO QID GA N dyspepsia, 07/17/25 abdominal cramping #30 tabs lamotrigine 25 mg tablet (Lamictal) 25 mg PO DAILY 30 days #30 tabs 07/23/25 olanzapine 2.5 mg tablet (Zyprexa) 2.5 mg PO BID PRN a nxiety #60 tabs 07/23/25 Allergies Allergy/AdvReac Type Severity Reaction Status Date / Time escitalopram (From Lexapro) Allergy ADR-Seizure Verified 07/12/25 11:45 sertraline (From Zoloft) Allergy ADR-Seizure Verified 07/12/25 11:45 Review of Systems 2 General: Reports: 10 or more systems reviewed and unremarkable except in HPI and below Const: Reports: chills and other (shaking); Denies: fever(s) or fatigue Eyes: Denies: change in vision ENMT: Denies: throat pain, ear or mastoid pain or nasal discharge Card: Denies: chest pain, palpitations, swelling of feet/ankles or lightheadedness Resp: Denies: dyspnea, productive cough or wheezing GI: Reports: abdominal pain and nausea; Denies: vomiting, diarrhea or constipation : Denies: flank pain, difficulty voiding, dysuria or urinary frequency Musc: Denies: neck pain, back pain or joint pain Skin/Breast: Denies: rash Neuro: Denies: headache(s), numbness in extremities or weakness in extremities Psych: Reports: anxiety PFSH ED 2 PFSH: Medical History (Updated 07/30/25 @ 19:07 by ARTURO Rodriguez) History of anemia Acid reflux Depression Anxiety IBS (irritable bowel syndrome) Insomnia Asthma Anemia Surgical History History of bilateral tubal ligation History of History of cholecystectomy Family History Grandmother Cancer Maternal-brain Mother Cancer breast/cervical Family/Other Cancer Maternal aunt-breast/cervical Family/Other Cancer, Onset Age: 4 Maternal bkmfk-yfeygzez-rbwrvw away d/t this Brother Psychiatric illness Sister Psychiatric illness Sister Psychiatric illness Other Bleeding disorder Diabetes Hypertension Lung disease Stroke Denies family history of CAD (coronary artery disease) Clotting disorder Dementia Hyperlipidemia Chronic kidney disease (CKD) Anesthesia complication Social History Smoking and tobacco/nicotine status: never used tobacco/nicotine Alcohol intake: never Substance/Drug Use: never Lives independently: Yes Marital status: Number of children: 5 Current occupational status: disabled Rosalind/Caodaism: Muslim Special rosalind needs: No Agree to transfusion: Yes Physical Exam 2 Const: COMMON NORMALS: no acute distress, patient oriented x3 and no limitations GENERAL APPEARANCE: cooperative, well developed and anxious O RIENTATION/CONSCIOUSNESS: Yes awake, Yes oriented to person, Yes oriented to place and Yes oriented to time HENMT: COMMON NORMALS: normocephalic, atraumatic and hearing grossly normal bilaterally HEAD & SCALP: normocephalic and atraumatic Eye: COMMON NORMALS: Equal, round and reactive pupils present, EOMs intact bilaterally and conjunctivae normal CONJUNCTIVA: Yes conjunctivae normal P UPIL: Yes Equal, round and reactive pupils present Neck/C-Spine: COMMON NORMALS: full ROM, supple and no JVD Resp: COMMON NORMALS: normal respiratory effort, No retractions, No use of accessory muscles and clear to auscultation bilaterally AUSCULTATION: clear to auscultation bilaterally Cardio: COMMON NORMALS: no JVD, regular rate, regular rhythm, No clicks present (Cardio), No murmurs present (Cardio) and No rub (Cardio) RATE: r egular rate RHYTHM: regular rhythm GI: COMMON NORMALS: Normal to inspection, nondistended, normoactive bowel sounds present, Soft to palpation and non-tender AUSCULTATION: Yes normoactive bowel sounds PALPATION: Yes Soft to palpation RECTAL EXAM: d eferred Extremity: COMMON NORMALS: normal to inspection, full ROM and capillary refill normal Neuro: COMMON NORMALS: patient oriented x3, moves all extremities, no focal motor deficits and no sensory deficits noted SENSORIUM/ORIENTATION: Yes oriented to person, Yes oriented to place and Yes oriented to time Psych: COMMON NORMALS: mental status grossly normal and Normal thought process present THOUGHT PROCESS: Normal thought process present Skin: COMMON NORMALS: no rashes or lesions noted GENERAL SKIN EXAM: no rashes or lesions noted Course 2 Vital Signs: Vital signs: Vital Signs Temperature 98.8 F 07/30/25 17:39 Pulse Rate 81 07/30/25 17:39 Respiratory Rate 18 07/30/25 17:39 Blood Pressure 127/85 07/30/25 17:39 Pulse Oximetry 98 07/30/25 17:39 Oxygen Delivery Me thod Room Air 07/30/25 17:39 MDM - Nausea/Vomiting/Diarrhea Medical Decision Making Patient presented with complaints of anxiety and nausea primarily, after starting olanzapine. Has been seen in the past for anxiety. She was given Zofran and Ativan here for symptom relief, labs were obtained and unremarkable. Likely these are side effect from her olanzapine and she is encouraged to follow-up with primary care or her prescriber to discuss the medication and any possible alternatives. No further workup in the ED at this time, she did not complain of any suicidal ideations. Lab Data 07/30/25 17:55 07/30/25 17:55 Laboratory Results WBC 8.47 10^3/uL (3.29-11.43) 07/30/25 17:55 RBC 4.27 10^6/uL (3.85-5.65) 07/30/25 17:55 Hgb 12.90 g/dL (11.27-16.99) 07/30/25 17:55 Hct 39.6 % (36-47) 07/30/25 17:55 MCV 92.7 fl (85-98) 07/30/25 17:55 MCH 30.2 pg (27-33) 07/30/25 17:55 MCHC 32.6 g/dL (30-55) 07/30/25 17:55 RDW 12.1 % (12.1-15.1) 07/30/25 17:55 Plt Count 270 10^3/cmm (157-399) 07/30/25 17:55 MPV 9.9 fL (7.4-10.4) 07/30/25 17:55 Neut % (Auto) 67.3 % 07/30/25 17:55 Lymph % (Auto) 22.8 % 07/30/25 17:55 [place] % (Auto) 8.0 % 07/30/25 17:55 Eos % (Auto) 1.2 % 07/30/25 17:55 Baso % (Auto) 0.5 % 07/30/25 17:55 Neut # (Auto) 5.70 10^3/uL (1.8-7.7) 07/30/25 17:55 Lymph # (Auto) 1.9 10^3/uL (0.8-4.8) 07/30/25 17:55 [place] # (Auto) 0.7 10^3/uL (0.2-0.9) 07/30/25 17:55 Eos # (Auto) 0.1 10^3/uL (0.0-0.8) 07/30/25 17:55 Baso # (Auto) 0.0 10^3/uL (0.0-0.1) 07/30/25 17:55 Nucleated RBC % (auto) 0 % 07/30/25 17:55 Nucleated RBCs # 0.0 /100WBC 07/30/25 17:55 Sodium 141 mmol/L (136-145) 07/30/25 17:55 Potassium 4.0 mmol/L (3.5-5.1) 07/30/25 17:55 Chloride 105 mmol/L (98-107) 07/30/25 17:55 Carbon Dioxide 24 mmol/L (22-29) 07/30/25 17:55 Anion Gap 16.0 (5-19) 07/30/25 17:55 BUN 10 mg/dL (6-20) 07/30/25 17:55 Creatinine 0.8 mg/dL (0.5-0.9) 07/30/25 17:55 GFR Calculation 84.2 mL/min (90-130) L 07/30/25 17:55 Glucose 99 mg/dL (65-115) 07/30/25 17:55 Calculated Osmolality 291 mOsm/kg (285-295) 07/30/25 17:55 Calcium 8.4 mg/dL (8.5-10.5) L 07/30/25 17:55 Total Bilirubin 0.3 mg/dL (0.15-1.2) 07/30/25 17:55 AST 13 U/L (0-32) 07/30/25 17:55 ALT 11 U/L (0-33) 07/30/25 17:55 Alkaline Phosphatase 65 U/L (35-105) 07/30/25 17:55 Total Protein 7.3 g/dL (6.6-8.7) 07/30/25 17:55 Albumin 4.5 g/dL (3.5-5.2) 07/30/25 17:55 Globulin 2.8 g/dL (1.3-4.6) 07/30/25 17:55 Lipase 21 U/L (13-60) 07/30/25 17:55 HCG, Qual Negative (Negative) 07/30/25 17:55 Urine Color Yellow (Yellow) 07/30/25 18:24 Urine Appearance Clear (CLEAR) 07/30/25 18:24 Urine pH 7.0 (5-7) 07/30/25 18:24 Ur Specific [place] 1.017 (1.005-1.030) 07/30/25 18:24 Urine Protein Negative (Negative) 07/30/25 18:24 Urine Glucose (UA) Negative (Normal) 07/30/25 18:24 Urine Ketones Negative (Negative) 07/30/25 18:24 Urine Blood Negative (Negative) 07/30/25 18:24 Urine Nitrate Negative (Negative) 07/30/25 18:24 Urine Bilirubin Negative (Negative) 07/30/25 18:24 Urine Urobilinogen 1.0 mg/dL (Negative) 07/30/25 18:24 Ur Leukocyte Esterase Negative (Negative) 07/30/25 18:24 Urine RBC 0-2 /hpf (0-2) 07/30/25 18:24 Urine WBC 0-5 /hpf (0-5) 07/30/25 18:24 Ur Squamous Epith Cells 0-5 /hpf (0-5) 07/30/25 18:24 Amorphous Sediment Not Reportable 07/30/25 18:24 Urine Bacteria None seen /hpf (NONE) 07/30/25 18:24 Hyaline Casts 0-4 /lpf H 07/30/25 18:24 No radiology studies performed this visit Discharge Plan Discharge Patient Disposition: Home Clinical Impression: Anxiety, Medication side effect Condition: Stable Prescriptions: No Action mecobalamin (vitamin B12) [B12 Active] 1,000 mcg tablet,chewable 1,000 mcg PO DAILY buspirone 15 mg tablet 15 mg PO BID Qty: 60 0RF ascorbic acid (vitamin C) [Vitamin C] 500 mg Tablet 250 mg PO DAILY Women's Multivitamin 18 mg iron-400 mcg-500 mg Tablet 1 tab PO DAILY hydroxyzine HCl 25 mg tablet 25 mg PO Q6H PRN (Reason: anxiety) Qty: 14 0RF hyoscyamine sulfate 0.125 mg tablet 0.125 mg PO QID PRN (Reason: dyspepsia, abdominal cramping) Qty: 30 0RF lamotrigine [Lamictal] 25 mg tablet 25 mg PO DAILY 30 Days Qty: 30 0RF Rx Instructions: Take 1 p.o. daily in AM. olanzapine [Zyprexa] 2.5 mg tablet 2.5 mg PO BID PRN (Reason: anxiety) Qty: 60 0RF Rx Instructions: Take 1 by mouth up to 4 times a day as needed for anxiety. Discharge Orders: Discharge ED (Routine); Ordered 07/30/25 Ordered By: Marcos Zabala Referrals: Arben Sigala MD [Primary Care Provider, [facility]] Patient Instructions: Patient Portal & Kelly Instructions Activity Restrictions/Additional Instructions: Continue taking your medications, stop olanzapine and follow-up primary care to discuss if this is causing your symptoms. Return with any worsening of condition. Print Language: Niuean Coding Level of Care Code ED Hypo Dipper for Zach Moe
== END 2025-07-30 19:13 | disposition home or self-care (01) ==
PROVIDERS: Emergency Medicine; Emergency Provider Physician Assistant
DX: F41.9 Anxiety disorder, unspecified (principal); R11.0 Nausea; T43.595A Adverse effect of other antipsychotics and neuroleptics, initial encounter
CPT/HCPCS: 36415; 80053; 81001; 83690; 84703; 85025; 99283; J9999; Q0162

== ENCOUNTER 2025-08-02 15:32 | Emergency (ER) | payer MEDICAID, SELFPAY ==
--- OUTSIDE RECORDS SUMMARY | 2024-02-06 02:00 | XMS_ITS ---
Author Organization [facility] Accounts Recei vable Address [address] [place] [address] Care Team Providers Care Print Line Feeder Name Role Phone Micah Ragsdale Unavailable [phone] Spring Skinner Unavailable [phone] REASON FOR VISIT [email or web address] Social History Sex Assigned At : Social History Observation Description Sex Assigned At Female Encounters Encounter Location Date Provider Diagnosis [address] [address] 02/06/2024 Spring Skinner Plan Of Treatment No Information Progress Notes * Janet JOHNSONDOB:1994 (30 yo F)Acc No.[id number]:02/06/2024 Patient: Mikki Thorntonney Provider: Kostas Skinner RDH :1995 A ge:28 Y S ex:Female Date:02/06/2024 Address:[address] [place] [address], [facility] [id number] Patient's Default Facility:B [facility] Subjective: * Chief Complaints: * A pe.plp Billing Information: * Procedure Codes: * Electronic signature of Spring Skinner RDH on 08/02/2025 at 03:37 PM FINANCIAL REPORTING ANALYST Sign off status: Pending * Provider: Kostas Skinner RDH Date: 02/06/2024 Generated for Printi ng/Faxing/eTransmitting on: 1 10/02/2024 03:37 PM FINANCIAL REPORTING ANALYST
--- OUTSIDE RECORDS SUMMARY | 2024-05-29 05:00 | XMS_ITS ---
Author Organization [facility] Accounts Recei vable Address [address] [place] [address] Care Team Providers Care Cytotechnologist/Histotechnologist Name Role Phone Micah Ragsdale Unavailable [phone] Lopez Lee Unavailable REASON FOR VISIT ape Social History Sex Assigned At : Social History Observation Description Sex Assigned At Female Encounters Encounter Location Date Provider Diagnosis [address] [address] 05/29/2024 Lopez Lee Plan Of Treatment No Information Progress Notes * Janet JOHNSONDOB:1994 (30 yo F)Acc No.[id number]:05/29/2024 Patient: Sherrill Thorntontney Provider: Lissy Serrato RDH :1995 A ge:29 Y S ex:Female Date:05/29/2024 Address:[address] [place] [address], [facility] Patient's Default Facility:B [facility] Subjective: * Chief Complaints: * A pe Billing Information: * Procedure Codes: * Electronic signature of Quinn Lee RDH on 08/02/2025 at 03:37 PM SPRUE CUTTING PRESS OPERATOR Sign off status: Pending * Provider: Lissy Serrato RDH Date: 0 05/29/2024 Generated for Printi ng/Faxing/eTransmitting on: 1 10/02/2024 03:37 PM SPRUE CUTTING PRESS OPERATOR
--- OUTSIDE RECORDS SUMMARY | 2025-01-10 02:00 | XMS_ITS ---
Author Organization [facility] Accounts Recei vable Address [address] [place] [address] Care Team Providers Care Craps Dealer Name Role Phone Micah Ragsdale Unavailable [phone] Brody Spring Unavailable [phone] REASON FOR VISIT comp, xr, reeval tx.plp Social History Sex Assigned At : Social History Observation Description Sex Assigned At Female Encounters Encounter Location Date Provider Diagnosis [address] [address] 01/10/2025 Spring Skinner Plan Of Treatment No Information Progress Notes * Janet JOHNSONDOB:1994 (30 yo F)Acc No.[id number]:01/10/2025 Progress Note Patient: Andrews almonte Janet Provider: Kostas Skinner RDH :1995 A ge:29 Y S ex:Female Date:01/10/2025 Address:[address] [place] [address], [facility], [place] Patient's Default Facility:B [facility] Subjective: * Chief Complaints: * C omp, xr, reeval tx.plp * Electronic signature of Spring Skinner RDH on 08/02/2025 at 03:37 PM CHOP SAW OPERATOR Sign off status: Pending * Provider: Kostas Skinner RDH Date: 0 01/10/2025 Generated for Printi ng/Faxing/eTransmitting on: 1 10/02/2024 03:37 PM CHOP SAW OPERATOR
--- OUTSIDE RECORDS SUMMARY | 2025-06-13 02:00 | XMS_ITS ---
Author Organization [facility] Accounts Recei vable Address [address] [place] [address] Care Team Providers Care Credit Compliance Officer Name Role Phone Micah Ragsdale Unavailable [phone] ArenCarrie lopez Unavailable [phone] REASON FOR VISIT APE, BWX, PEX gn Social History Sex Assigned At : Social History Observation Description Sex Assigned At Female Encounters Encounter Location Date Provider Diagnosis [address] [address] 06/13/2025 Carrie Younger Plan Of Treatment No Information Progress Notes * Janet JOHNSONDOB:1994 (30 yo F)Acc No.[id number]:06/13/2025 Patient: Andrews Janet almonte Provider: Andrews Younger [facility] :1995 A ge:30 Y S ex:Female Date:06/13/2025 Address:[address] [place] [address] [address], [facility] [id number] Patient's Default Facility:B [facility] Subjective: * Chief Complaints: * A PE, BWX, PEX gn * Electronic signature of [facility] evita Younger on 08/02/2025 at 03:37 PM PERSONNEL SECURITY SPECIALIST Sign off status: Pending * Provider: Andrews Younger [facility] Date: Generated for Printi ng/Faxing/eTransmitting on: 10/02/2024 03:37 PM PERSONNEL SECURITY SPECIALIST
--- OUTSIDE RECORDS SUMMARY | 2025-08-02 15:37 | XMS_ITS | Patient Health Record ---
Author Organization [facility] Accounts Recei vable Address [address] [place] [address] Care Team Providers Care Custom Shoe Designer And Maker Name Role Phone Micah Ragsdale Unavailable [phone] [employer] Unavailable [phone] Carrie Younger Unavailable [phone] Allergies Allergen (clinical drug ingredient) Drug/Non Drug [...] cavity (V76.42) Active confirmed Problem Toothache (finding) (23288809) Tooth pain (K08.89) Active confirmed Problem At high risk for dental caries (finding) (398947216) Risk for dental caries, high (Z91.843) Active confirmed Vital Signs Heart Rate 74 BPM 04/11/2025 Blood pressure diastolic 69 mm Hg 04/11/2025 Height 65 in 04/11/2025 Blood pressure systolic 107 mm Hg 04/11/2025 Weight 171.6 lbs 04/11/2025 BMI 28.55 kg/m2 04/11/2025 Encounters Encounter Location Date Provider Diagnosis [address] [address] 03/13/2025 Carrie Aren Tooth pain K08.[address] [address] 04/11/2025 Abu Hasme Assessments Encounter Date Diagnosis [...] Date Coverage End Date [facility] [employer] [facility] [address] [place] [address] [id number] Janet Johnson Self - patient is the insured Medical (General) History Medical History History ICD Code Allergies ADD\ ADHD astma Anxeity and Depression Surgical History Surgery Date(Month/Year) C section Tub tied Gallbladder Hospitalization History Reason Date(Month/Year) see above
--- OUTSIDE RECORDS SUMMARY | 2025-08-02 15:38 | XMS_ITS | Patient Health Record ---
Author Organization [facility] Address [address] [place] [address] Care Team Providers Care Machine Design Teacher Name Role Phone Arben Sigala MD Primary Care Provider UnavailBeena Hightower Unavailable [phone] Allergies Allergen (clinical drug ingredient) Drug/Non Drug [...] Date Status Comme nts Influenza (whole), CPT 10153 Inactive Unknown 02/28/2019 Administered Influenza (whole), CPT 74285 Inactive Unknown 06/17/2019 Administered Social History Tobacco [...] Status W/U Status Risk Notes Problem visit (476240637) Encounter for routine follow-up (Z39.2) Active confirmed Problem Depression (572273449) Other depression (F32.89) Active confirmed Problem Gastroesophageal reflux disease (895324221) Gastroesophageal reflux disease, unspecified whether esophagitis present (K21.9) Active confirmed Plan Of Treatment No Information Insurance Providers Payer Name Payer Address Payer Phone Subscriber Number Group Number Insured Name Patient Relationship to Insured Coverage Start Date Coverage End Date [place] Medicaid [address] [place] [address] [id number] Janet Fisher Self - patient is the insured Medical (General) History Medical History History ICD Code Asthma Closed fracture of distal phalanx of fin calli Irregular periods Anemia Anxiety Chronic depression Irritable colon anxiety Surgical History Surgery Date(Month/Year) Bilateral tubal ligation 09/25/2019 section 2018 Cholecystectomy 2015 Hospitalization History Reason Date(Month/Year) see surgerys
[2025-08-02 15:51] VITALS: BP 130/86; PULSE 89; RESP 16; TEMP 36.7; O2SAT 97; BMI 28.9
--- NOTE | 2025-08-02 17:51 | W.ED.ANXIETY ---
HPI - Anxiety General: Chief Complaint: Anxiety Stated Complaint: Can't Sleep Anxity N Time Seen by Provider: 08/02/25 16:25 Source: patient Mode of arrival: ambulatory Limitations: no limitations History of Present Illness: Patient is a 30-year-old female with past medical history of anxiety and depression who was seen here in the emergency department multiple times recently, presenting for acute anxiety. She tells me she has been having symptoms of nausea vomiting diarrhea as well as insomnia, agitation, and worsening depression. She did recently start BuSpar, she states that she thinks this is overall helping but her symptoms are causing her a great amount of distress. She denies any SI, HI, or hallucinations. States that she has been unable to care for her kids due to the symptoms she is having. She states that she will lie down to go to sleep because she feels exhausted, but then wake up in a panic. No other symptoms at this time. MD complaint: anxiety Severity: similar to previous episodes Associated symptoms: Reports nausea and vomiting; Deny chest pain, chills, fever(s), headache(s) or palpitations Related Data Home Medications ?Medication ?Instructions ?Recorded ?Confirmed ascorbic acid (vitamin C) 500 mg 250 mg PO DAILY 08/04/24 07/12/25 tablet (Vitamin C) puawmosh-vpd-mxvl-FA-Ca carb-vit K 1 tab PO DAILY 08/04/24 07/12/25 18 mg iron-400 mcg-500 mg tablet mecobalamin (vitamin B12) 1,000 1,000 mcg PO DAILY 05/13/25 07/12/25 mcg chewable tablet (B12 Active) Previous Rx's ?Medication ?Instructions ?Recorded hydroxyzine HCl 25 mg tablet 25 mg PO Q6H PRN anxiety #14 tabs 07/12/25 buspirone 15 mg tablet 15 mg PO BID #60 tabs 07/14/25 hyoscyamine sulfate 0.125 mg tablet 0.125 mg PO QID PRN dyspepsia, 07/17/25 abdominal cramping #30 tabs lamotrigine 25 mg tablet (Lamictal) 25 mg PO DAILY 30 days #30 tabs 07/23/25 olanzapine 2.5 mg tablet (Zyprexa) 2.5 mg PO BID PRN anxiety #60 tabs 07/23/25 Allergies Allergy/AdvReac Type Severity Reaction Status Date / Time escitalopram (From Lexapro) Allergy ADR-Seizure Verified 08/02/25 15:56 sertraline (From Zoloft) Allergy ADR-Seizure Verified 08/02/25 15:56 ketorolac (From Toradol) AdvReac ADR-Anxiety Verified 08/02/25 15:57 Review of Systems General: Reports: 10 or more systems reviewed and unremarkable except in HPI and below Const: Denies: fever(s), chills or fatigue Eyes: Denies: change in vision ENMT: Denies: throat pain, ear or mastoid pain or nasal discharge Card: Denies: chest pain, palpitations, swelling of feet/ankles or lightheadedness Resp: Denies: dyspnea, productive cough or wheezing GI: Reports: nausea, vomiting and diarrhea; Denies: abdominal pain or constipation : Denies: flank pain, difficulty voiding, dysuria or urinary frequency Musc: Denies: neck pain, back pain or joint pain Skin/Breast: Denies: rash Neuro: Denies: headache(s), numbness in extremities or weakness in extremities Psych: Reports: anxiety, sleeping less and irritability; Denies: visual hallucinations, auditory hallucinations, tactile hallucinations, suicidal ideation or homicidal ideation PFSH ED PFSH: Medical History History of anemia Acid reflux Depression Anxiety IBS (irritable bowel syndrome) Insomnia Asthma Anemia Surgical History History of bilateral tubal ligation History of History of cholecystectomy Family History Grandmother Cancer Maternal-brain Mother Cancer breast/cervical Family/Other Cancer Maternal aunt-breast/cervical Family/Other Cancer, Onset Age: 4 Maternal eyize-vteqswar-mpyapd away d/t this Brother Psychiatric illness Sister Psychiatric illness Sister Psychiatric illness Other Bleeding disorder Diabetes Hypertension Lung disease Stroke Denies family history of CAD (coronary artery disease) Clotting disorder Dementia Hyperlipidemia Chronic kidney disease (CKD) Anesthesia complication Social History Smoking and tobacco/nicotine status: never used tobacco/nicotine Alcohol intake: never Substance/Drug Use: never Lives independently: Yes Marital status: Number of children: 5 Current occupational status: disabled Rosalind/Jew: Hoahaoism Special rosalind needs: No Agree to transfusion: Yes Physical Exam Const: COMMON NORMALS: no acute distress, patient oriented x3 and no limitations GENERAL APPEARANCE: cooperative, well developed and anxious ORIENTATION/CONSCIOUSNESS: Yes awake, Yes oriented to person, Yes oriented to place and Yes oriented to time HENMT: COMMON NORMALS: normocephalic, atraumatic and hearing grossly normal bilaterally HEAD & SCALP: normocephalic and atraumatic Eye: COMMON NORMALS: Equal, round and reactive pupils present, EOMs intact bilaterally and conjunctivae normal CONJUNCTIVA: Yes conjunctivae normal PUPIL: Yes Equal, round and reactive pupils present Neck/C-Spine: COMMON NORMALS: full ROM, supple and no JVD Resp: COMMON NORMALS: normal respiratory effort, No retractions, No use of accessory muscles and clear to auscultation bilaterally AUSCULTATION: clear to auscultation bilaterally Cardio: COMMON NORMALS: no JVD, regular rate, regular rhythm, No clicks present (Cardio), No murmurs present (Cardio) and No rub (Cardio) RATE: regular rate RHYTHM: regular rhythm Extremity: COMMON NORMALS: normal to inspection, full ROM and capillary refill normal Neuro: COMMON NORMALS: patient oriented x3, moves all extremities, no focal motor deficits and no sensory deficits noted SENSORIUM/ORIENTATION: Yes oriented to person, Yes oriented to place and Yes oriented to time Psych: COMMON NORMALS: mental status grossly normal and Normal thought process present THOUGHT PROCESS: Normal thought process present THOUGHT CONTENT: No Suicidality present, No Homicidality present and No Hallucination(s) present Course Vital Signs: Vital signs: Vital Signs Temperature 98.0 F 08/02/25 15:51 Pulse Rate 89 08/02/25 15:51 Respiratory Rate 16 08/02/25 15:51 Blood Pressure 130/86 08/02/25 15:51 Pulse Oximetry 97 08/02/25 15:51 Oxygen Delivery Me thod Room Air 08/02/25 15:51 MDM - Anxiety Medical Decision Making Patient presented, has been seen here multiple times this month, for anxiety. States that she has continued to have issues sleeping, recently was started on BuSpar and has also been having nausea vomiting diarrhea. Denies SI HI or hallucinations. States that Ativan is only thing that will help her feel like she needs a sleep, she has not followed up with [facility] or her primary care who prescribes BuSpar since her last visit here in the ED. She is not meeting admission's criteria to the neuropsychiatric unit at this time as I do not feel that she is a threat to herself and she has no SI or HI or signs of acute psychosis. She is given Ativan here which does help her symptoms and she is able to sleep in the ER, but I told her that she really needs to follow-up for medication evaluation, as her symptoms are likely side effects or from general baseline anxiety and depression. She is told to return if she does develop SI or HI, but otherwise stable for discharge at this time, she is comfortable with this plan. No radiology studies performed this visit Discharge Plan Discharge Patient Disposition: Home Clinical Impression: Anxiety Condition: Stable Prescriptions: No Action mecobalamin (vitamin B12) [B12 Active] 1,000 mcg tablet,chewable 1,000 mcg PO DAILY buspirone 15 mg tablet 15 mg PO BID Qty: 60 0RF ascorbic acid (vitamin C) [Vitamin C] 500 mg Tablet 250 mg PO DAILY Women's Multivitamin 18 mg iron-400 mcg-500 mg Tablet 1 tab PO DAILY hydroxyzine HCl 25 mg tablet 25 mg PO Q6H PRN (Reason: anxiety) Qty: 14 0RF hyoscyamine sulfate 0.125 mg tablet 0.125 mg PO QID PRN (Reason: dyspepsia, abdominal cramping) Qty: 30 0RF lamotrigine [Lamictal] 25 mg tablet 25 mg PO DAILY 30 Days Qty: 30 0RF Rx Instructions: Take 1 p.o. daily in AM. olanzapine [Zyprexa] 2.5 mg tablet 2.5 mg PO BID PRN (Reason: anxiety) Qty: 60 0RF Rx Instructions: Take 1 by mouth up to 4 times a day as needed for anxiety. Discharge Orders: Discharge ED (Routine); Ordered 08/02/25 Ordered By: Marcos Zabala Referrals: Arben Sigala MD [Primary Care Provider, Family Practice] Patient Instructions: Patient Portal & Kelly Instructions Activity Restrictions/Additional Instructions: Please follow-up with your primary care provider on Monday as we discussed, to discuss your medication and likely side effects. Please return with any thoughts of suicidal ideation, homicidal ideation, or hallucinations of any kind. You may continue taking your medications as prescribed. Take the Ativan as needed for acute anxiety. Print Language: Khmer Coding Level of Care Code ED Aircraft Engine Specialist for Zach Moe
== END 2025-08-02 19:38 | disposition home or self-care (01) ==
PROVIDERS: Emergency Provider Physician Assistant
DX: F41.9 Anxiety disorder, unspecified (principal)
CPT/HCPCS: 99283; J9999; Q0162

== ENCOUNTER 2025-08-07 15:42 | Emergency (ER) | payer OTHER, SELFPAY ==
--- OUTSIDE RECORDS SUMMARY | 2024-02-06 02:00 | XMS_ITS ---
Author Organization [facility] Accounts Recei vable Address [address] [place] [address] Care Team Providers Care Solar Technician Name Role Phone Micah Ragsdale Unavailable [phone] Spring Skinner Unavailable [phone] REASON FOR VISIT [email or web address] Social History Sex Assigned At : Social History Observation Description Sex Assigned At Female Encounters Encounter Location Date Provider Diagnosis [address] [address] 02/06/2024 Spring Skinner Plan Of Treatment No Information Progress Notes * Janet JOHNSONDOB:1994 (30 yo F)Acc No.[id number]:02/06/2024 Patient: Mikki Thorntonney Provider: Kostas Skinner RDH :1995 A ge:28 Y S ex:Female Date:02/06/2024 Address:[address] [place] [address], [facility], [place] Patient's Default Facility:B [facility] Subjective: * Chief Complaints: * A pe.plp Billing Information: * Procedure Codes: * Electronic signature of Spring Skinner RDH on 08/07/2025 at 03:47 PM ELECTRICIAN MAINTENANCE Sign off status: Pending * Provider: Kostas Skinner RDH Date: 02/06/2024 Generated for Printi ng/Faxing/eTransmitting on: 1 10/07/2024 03:47 PM ELECTRICIAN MAINTENANCE
--- OUTSIDE RECORDS SUMMARY | 2024-05-29 05:00 | XMS_ITS ---
Author Organization [facility] Accounts Recei vable Address [address] [place] [address] Care Team Providers Care Traffic Survey Technician Name Role Phone Micah Ragsdale Unavailable [phone] Lopez Lee Unavailable REASON FOR VISIT ape Social History Sex Assigned At : Social History Observation Description Sex Assigned At Female Encounters Encounter Location Date Provider Diagnosis [address] [address] 05/29/2024 Lopez Lee Plan Of Treatment No Information Progress Notes * Janet JOHNSONDOB:1994 (30 yo F)Acc No.[id number]:05/29/2024 Patient: Sherrill Thorntontney Provider: Lissy Serrato RDH :1995 A ge:29 Y S ex:Female Date:05/29/2024 Address:[address] [place] [address], [facility] Patient's Default Facility:B [facility] Subjective: * Chief Complaints: * A pe Billing Information: * Procedure Codes: * Electronic signature of Quinn Lee RDH on 08/07/2025 at 03:46 PM WHIPPER Sign off status: Pending * Provider: Lissy Serrato RDH Date: 0 05/29/2024 Generated for Printi ng/Faaminahg/eTransmitting on: 1 10/07/2024 03:46 PM WHIPPER
--- OUTSIDE RECORDS SUMMARY | 2025-01-10 02:00 | XMS_ITS ---
Author Organization [facility] Accounts Recei vable Address [address] [place] [address] Care Team Providers Care [employer] Social Studies Teacher Name Role Phone Micah Ragsdale Unavailable [phone] Brody Spring Unavailable [phone] REASON FOR VISIT comp, xr, reeval tx.plp Social History Sex Assigned At : Social History Observation Description Sex Assigned At Female Encounters Encounter Location Date Provider Diagnosis [address] [address] 01/10/2025 Spring Skinner Plan Of Treatment No Information Progress Notes * Janet JOHNSONDOB:1994 (30 yo F)Acc No.[id number]:01/10/2025 Progress Note Patient: Andrews almonte Janet Provider: Kostas Skinner RDH :1995 A ge:29 Y S ex:Female Date:01/10/2025 Address:[address] [place] [address] [address], [facility] [id number] Patient's Default Facility:B [facility] Subjective: * Chief Complaints: * C omp, xr, reeval tx.plp * Electronic signature of Spring Skinner RDH on 08/07/2025 at 03:47 PM ALLIGATOR SHEAR OPERATOR Sign off status: Pending * Provider: Kostas Skinner RDH Date: 0 01/10/2025 Generated for Printi ng/Faxing/eTransmitting on: 1 10/07/2024 03:47 PM ALLIGATOR SHEAR OPERATOR
--- OUTSIDE RECORDS SUMMARY | 2025-06-13 02:00 | XMS_ITS ---
Author Organization [facility] Accounts Recei vable Address [address] [place] [address] Care Team Providers Care Hosiery Looper Name Role Phone Micah Ragsdale Unavailable [phone] Carrie Younger Unavailable [phone] REASON FOR VISIT APE, BWX, PEX gn Social History Sex Assigned At : Social History Observation Description Sex Assigned At Female Encounters Encounter Location Date Provider Diagnosis [address] [address] 06/13/2025 Carrie Younger Plan Of Treatment No Information Progress Notes * Janet JOHNSONDOB:1994 (30 yo F)Acc No.[id number]:06/13/2025 Patient: Andrews Janet almonte Provider: Andrews Younger [facility] :1995 A ge:30 Y S ex:Female Date:06/13/2025 Address:[address] [place] [address] [address], [facility] Patient's Default Facility:[facility] Subjective: * Chief Complaints: * A PE, BWX, PEX gn * Electronic signature of [facility] evita Younger on 08/07/2025 at 03:47 PM WASTE ELIMINATION Sign off status: Pending * Provider: Andrews Younger [facility] Date: Generated for Printi ng/Faxing/eTransmitting on: 10/07/2024 03:47 PM WASTE ELIMINATION
--- OUTSIDE RECORDS SUMMARY | 2025-08-07 15:47 | XMS_ITS | Patient Health Record ---
Author Organization [facility] Address [address] [place] [address] Care Team Providers Care Hearing Therapist Name Role Phone Arben Sigala MD Primary Care Provider UnavailBeena Hightower Unavailable [phone] Allergies Allergen (clinical drug ingredient) Drug/Non Drug [...] Date Status Comme nts Influenza (whole), CPT 12669 Inactive Unknown 02/28/2019 Administered Influenza (whole), CPT 48275 Inactive Unknown 06/17/2019 Administered Social History Tobacco [...] Status W/U Status Risk Notes Problem visit (801444917) Encounter for routine follow-up (Z39.2) Active confirmed Problem Depression (940008191) Other depression (F32.89) Active confirmed Problem Gastroesophageal reflux disease (735939192) Gastroesophageal reflux disease, unspecified whether esophagitis present (K21.9) Active confirmed Plan Of Treatment No Information Insurance Providers Payer Name Payer Address Payer Phone Subscriber Number Group Number Insured Name Patient Relationship to Insured Coverage Start Date Coverage End Date [place] [address] [place] [address] [phone] [id number] Janet Fisher Self - patient is the insured Medical (General) History Medical History History ICD Code Asthma Closed fracture of distal phalanx of fin calli Irregular periods Anemia Anxiety Chronic depression Irritable colon anxiety Surgical History Surgery Date(Month/Year) Cholecystectomy 2015 section 2018 Bilateral tubal ligation 09/25/2019 Hospitalization History Reason Date(Month/Year) see surgerys
--- OUTSIDE RECORDS SUMMARY | 2025-08-07 15:47 | XMS_ITS | Patient Health Record ---
Author Organization [facility] Accounts Recei vable Address [address] [place] [address] Care Team Providers Care Ed Special Education Teacher Name Role Phone Micah Ragsdale Unavailable [phone] [employer] Unavailable [phone] Carrie Younger Unavailable [phone] Allergies Allergen (clinical drug ingredient) Drug/Non Drug [...] cavity (V76.42) Active confirmed Problem Toothache (finding) (20167029) Tooth pain (K08.89) Active confirmed Problem At high risk for dental caries (finding) (350949724) Risk for dental caries, high (Z91.843) Active confirmed Vital Signs Heart Rate 74 BPM 04/11/2025 Blood pressure diastolic 69 mm Hg 04/11/2025 Height 65 in 04/11/2025 Blood pressure systolic 107 mm Hg 04/11/2025 Weight 171.6 lbs 04/11/2025 BMI 28.55 kg/m2 04/11/2025 Encounters Encounter Location Date Provider Diagnosis [address] [address] 03/13/2025 Carrie Aren Tooth pain K08.[address] [address] 04/11/2025 Abu Hasme Assessments Encounter Date Diagnosis [...] Date Coverage End Date [facility] [address] [place] [address] [phone] [id number] Janet Johnson Self - patient is the insured Medical (General) History Medical History History ICD Code Allergies ADD\ ADHD astma Anxeity and Depression Surgical History Surgery Date(Month/Year) C section Tub tied Gallbladder Hospitalization History Reason Date(Month/Year) see above
[2025-08-07 15:51] VITALS: BP 122/77; PULSE 87; RESP 17; TEMP 36.7; O2SAT 98
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
[2025-08-07 16:31] VITALS: BP 107/71; PULSE 71; O2SAT 100
== END 2025-08-07 16:35 | disposition home or self-care (01) ==
PROVIDERS: Emergency Provider Physician Assistant
DX: S39.012A Strain of muscle, fascia and tendon of lower back, initial encounter (principal); V49.50XA Passenger injured in collision with unspecified motor vehicles in traffic accident, initial encounter
CPT/HCPCS: 70450; 72100; 99284

== ENCOUNTER 2025-08-09 00:55 | Emergency (ER) | payer MEDICAID, SELFPAY ==
--- OUTSIDE RECORDS SUMMARY | 2024-02-06 02:00 | XMS_ITS ---
Author Organization [facility] Accounts Recei vable Address [address] [place] [address] Care Team Providers Care Paralegal Internship Name Role Phone Micah Ragsdale Unavailable [phone] Spring Skinner Unavailable [phone] REASON FOR VISIT [email or web address] Social History Sex Assigned At : Social History Observation Description Sex Assigned At Female Encounters Encounter Location Date Provider Diagnosis [address] [address] 02/06/2024 Spring Skinner Plan Of Treatment No Information Progress Notes * Janet JOHNSONDOB:1994 (30 yo F)Acc No.[id number]:02/06/2024 Patient: Janet Thornton Provider: Kostas Skinner RDH :1995 A ge:28 Y S ex:Female Date:02/06/2024 Address:[address] [place] [address], [facility] Patient's Default Facility:B [facility] Subjective: * Chief Complaints: * A pe.plp Billing Information: * Procedure Codes: * Electronic signature of Spring Skinner RDH on 08/09/2025 at 01:05 AM SERVICE DESK LEAD Sign off status: Pending * Provider: Kostas Skinner RDH Date: 0 02/06/2024 Generated for Printi ng/Faxing/eTransmitting on: 1 10/09/2024 01:05 AM SERVICE DESK LEAD
--- OUTSIDE RECORDS SUMMARY | 2024-05-29 05:00 | XMS_ITS ---
Author Organization [facility] Accounts Recei vable Address [address] [place] [address] Care Team Providers Care Tax Services Intern Name Role Phone Micah Ragsdale Unavailable [phone] Lopez Lee Unavailable REASON FOR VISIT ape Social History Sex Assigned At : Social History Observation Description Sex Assigned At Female Encounters Encounter Location Date Provider Diagnosis [address] [address] 05/29/2024 Lopez Lee Plan Of Treatment No Information Progress Notes * Janet JOHNSONDOB:1994 (30 yo F)Acc No.[id number]:05/29/2024 Patient: Mikki Thorntonney Provider: Lissy Serrato RDH :1995 A ge:29 Y S ex:Female Date:05/29/2024 Address:[address] [place] [address], [facility] Patient's Default Facility:B [facility] Subjective: * Chief Complaints: * A pe Billing Information: * Procedure Codes: * Electronic signature of Quinn Lee RDH on 08/09/2025 at 01:04 AM SERVICE DEVELOPER Sign off status: Pending * Provider: Lissy Serrato RDH Date: 0 05/29/2024 Generated for Karrii ng/Faaminahg/eTransmitting on: 10/09/2024 01:04 AM SERVICE DEVELOPER
--- OUTSIDE RECORDS SUMMARY | 2025-01-10 02:00 | XMS_ITS ---
Author Organization [facility] Accounts Recei vable Address [address] [place] [address] Care Team Providers Care Periodicals Library Assistant Name Role Phone Micah Ragsdale Unavailable [phone] Brody Spring Unavailable [phone] REASON FOR VISIT comp, xr, reeval tx.plp Social History Sex Assigned At : Social History Observation Description Sex Assigned At Female Encounters Encounter Location Date Provider Diagnosis [address] [address] 01/10/2025 Spring Skinner Plan Of Treatment No Information Progress Notes * Janet JOHNSONDOB:1994 (30 yo F)Acc No.[id number]:01/10/2025 Progress Note Patient: Andrews almonte Janet Provider: Kostas Skinner RDH :1995 A ge:29 Y S ex:Female Date:01/10/2025 Address:[address] [place] [address], [facility], [place] Patient's Default Facility:B [facility] Subjective: * Chief Complaints: * C omp, xr, reeval tx.plp * Electronic signature of Spring Skinner RDH on 08/09/2025 at 01:04 AM CORONER/MEDICAL EXAMINER Sign off status: Pending * Provider: Kostas Skinner RDH Date: 0 01/10/2025 Generated for Printi ng/Faxing/eTransmitting on: 1 10/09/2024 01:04 AM CORONER/MEDICAL EXAMINER
--- OUTSIDE RECORDS SUMMARY | 2025-06-13 02:00 | XMS_ITS ---
Author Organization [facility] Accounts Recei vable Address [address] [place] [address] Care Team Providers Care Corporate Learning Consultant Name Role Phone Micah Ragsdale Unavailable [phone] Carrie Younger Unavailable [phone] REASON FOR VISIT APE, BWX, PEX gn Social History Sex Assigned At : Social History Observation Description Sex Assigned At Female Encounters Encounter Location Date Provider Diagnosis [address] [address] 06/13/2025 Carrie Younger Plan Of Treatment No Information Progress Notes * Janet JOHNSONDOB:1994 (30 yo F)Acc No.[id number]:06/13/2025 Patient: Andrews Janet almonte Provider: Andrews Younger [facility] :1995 A ge:30 Y S ex:Female Date:06/13/2025 Address:[address] [place] [address] [address], [facility], [place] Patient's Default Facility:B [facility] Subjective: * Chief Complaints: * A PE, BWX, PEX gn * Electronic signature of [facility] evita Younger on 08/09/2025 at 01:05 AM MINK FARMER Sign off status: Pending * Provider: Andrews Younger [facility] Date: Generated for Printi ng/Faxing/eTransmitting on: 10/09/2024 01:05 AM MINK FARMER
[2025-08-09 00:56] VITALS: BP 101/71; PULSE 84; TEMP 36.6; O2SAT 100; BMI 28.9
--- OUTSIDE RECORDS SUMMARY | 2025-08-09 01:05 | XMS_ITS | Patient Health Record ---
Author Organization [facility] Accounts Recei vable Address [address] [place] [address] Care Team Providers Care Pastry Finisher Name Role Phone Micah Ragsdale Unavailable [phone] Spring Skinner Unavailable [phone] Carrie Younger Unavailable [phone] Allergies Allergen (clinical drug ingredient) Drug/Non Drug Allergy documented on EMR Reaction Allergy Type Onset Date Status Information temporarily unavailable Lexapro (uncoded) Unknown Allergy Active Information temporarily unavailable Zoloft (uncoded) Unknown Allergy Active Reason For Referral No Information Medications Medication [...] Problem Status W/U Status Risk Notes Problem Information temporarily unavailable Screening for malignant neoplasm of the oral cavity (V76.42) Active confirmed Problem Information temporarily unavailable Tooth pain (K08.89) Active confirmed Problem Information temporarily unavailable Risk for dental caries, high (Z91.843) Active confirmed Vital Signs Heart Rate 74 BPM 04/11/2025 Blood pressure diastolic 69 mm Hg 04/11/2025 Height 65 in 04/11/2025 Blood pressure systolic 107 mm Hg 04/11/2025 Weight 171.6 lbs 04/11/2025 BMI 28.55 kg/m2 04/11/2025 Encounters Encounter Location Date Provider Diagnosis [facility] Dental [address] [address] 03/13/2025 Carrie Aren Tooth pain K08.[address] [address] 04/11/2025 Abu Hasme Assessments Encounter Date Diagnosis [...] Date Coverage End Date [facility] [facility] [address] [place] [address] [id number] Janet Johnson Self - patient is the insured Medical (General) History Medical History History ICD Code Allergies ADD\ ADHD astma Anxeity and Depression Surgical History Surgery Date(Month/Year) Gallbladder Tub tied C section Hospitalization History Reason Date(Month/Year) see above
--- OUTSIDE RECORDS SUMMARY | 2025-08-09 01:05 | XMS_ITS | Patient Health Record ---
Author Organization [facility] Address [address] [place] [address] Care Team Providers Care Shirt Finisher Name Role Phone Arben Sigala MD Primary Care Provider Unavailabl e Beena Ortiz Unavailable [phone] Allergies Allergen (clinical drug ingredient) Drug/Non Drug Allergy documented on EMR Reaction Allergy Type Onset Date Status Information temporarily unavailable Escitalopram Unknown Drug Allergy Active Information temporarily unavailable Sertraline Unknown Drug Allergy Active Reason For Referral No Information Medications Medication SIG (Take, Route, Frequency, Duration) Notes Start Date End Date Status DULoxetine HCl 30 MG Capsule Delayed Release Particles 1 capsule daily for 1 week then increase to 2 capsules daily Orally Once a day; Duration: 30 day(s) Activ e Immunizations Vaccine Route Administration Date Status Comme nts Influenza (whole), CPT 63743 Inactive Unknown 02/28/2019 Administered Influenza (whole), CPT 94670 Inactive Unknown 06/17/2019 Administered Social History Tobacco [...] Status Risk Notes Problem Information temporarily unavailable Encounter for routine follow-up (Z39.2) Active confirmed Problem Information temporarily unavailable Other depression (F32.89) Active confirmed Problem Information temporarily unavailable Gastroesophageal reflux disease, unspecified whether esophagitis present (K21.9) Active confirmed Plan Of Treatment No Information Insurance Providers Payer Name Payer Address Payer Phone Subscriber Number Group Number Insured Name Patient Relationship to Insured Coverage Start Date Coverage End Date [place] [address] [place] [address] [phone] [id number] Janet Fisher Self - patient is the insured Medical (General) History Medical History History ICD Code Asthma Closed fracture of distal phalanx of fin calli Irregular periods Anemia Anxiety Chronic depression Irritable colon anxiety Surgical History Surgery Date(Month/Year) Cholecystectomy 2015 section 2018 Bilateral tubal ligation 09/25/2019 Hospitalization History Reason Date(Month/Year) see surgerys
[2025-08-09 01:44] LABS: Hematocrit 35.6 % (36-47); Hemoglobin 11.60 g/dL (11.27-16.99); Mean Corpuscular HGB Conc 32.6 g/dL (30-55); Mean Corpuscular Hemoglobin 29.9 pg (27-33); Mean Corpuscular Volume 91.8 fl (85-98); Nucleated Red Blood Cells % 0 %; Platelet Count 184 10^3/cmm (157-399); Red Blood Count 3.88 10^6/uL (3.85-5.65); White Blood Count 7.94 10^3/uL (3.29-11.43)
[2025-08-09 01:56] VITALS: BP 116/63; PULSE 87; O2SAT 99
[2025-08-09 02:00] LABS: Alanine Aminotransferase 8 U/L (0-33); Albumin Level 4.4 g/dL (3.5-5.2); Alkaline Phosphatase 54 U/L (35-105); Anion Gap 12.4 (5-19); Aspartate Amino Transferase 12 U/L (0-32); Blood Urea Nitrogen 19 mg/dL (6-20); Calcium 8.5 mg/dL (8.5-10.5); Carbon Dioxide 26 mmol/L (22-29); Chloride 101 mmol/L (98-107); Creatinine Clr Calc Pharmacy 94.8996; Globulin 2.2 g/dL (1.3-4.6); Glucose 103 mg/dL (65-115); Osmolality Calculated 285 mOsm/kg (285-295); Potassium 3.4 mmol/L (3.5-5.1); Sodium 136 mmol/L (136-145); Total Protein 6.6 g/dL (6.6-8.7)
[2025-08-09] MEDS: LORazepam 2 mg/mL INJ 1 mL IVP (02:08)
[2025-08-09 02:09] LABS: HCG, Serum Qual Negative (Negative)
[2025-08-09 02:11] VITALS: BP 141/74; PULSE 121; O2SAT 99
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
[2025-08-09 02:57] VITALS: PULSE 95; O2SAT 96
[2025-08-09] MEDS: haloperidol inj 5 mg/mL INJ 1 mL 3 MG IVP (03:08)
--- NOTE | 2025-08-09 03:32 | PC.NURSE ---
I went into room to discharge patient and asked if she was ready to go home. Pt. states , I don't feel good . I asked what was going on. Pt. states I'm nauseous and don't feel good, can I get that other nurse back in here? I explained that I would let the doctor know of her complaint and that the other nurse was in a different room. I have reported to Dr. Munson the patient complaint and he is going to go see her.
[2025-08-09] MEDS: ondansetron 2 mg/ML SDV 2 mL 8 MG IVP (04:08)
== END 2025-08-09 04:17 | disposition home or self-care (01) ==
PROVIDERS: Emergency Provider Emergency Medicine
DX: R51.9 Headache, unspecified (principal); F41.9 Anxiety disorder, unspecified
CPT/HCPCS: 36415; 80053; 84703; 85025; 96361; 96374; 96375; 99284; J0780; J1630; J2060; J2405; J7040

== ENCOUNTER 2025-08-09 08:10 | Emergency (ER) | payer MEDICAID, SELFPAY ==
[2025-08-09 08:16] VITALS: BP 140/87; PULSE 110; RESP 18; O2SAT 98; BMI 26.6
--- NOTE | 2025-08-09 08:27 | ED_ITS ---
HPI - General Adult General: Chief complaint: General Medical Stated complaint: Can't sleep N Time Seen by Provider: 08/09/25 08:20 Source: patient Mode of arrival: ambulatory Limitations: no limitations History of Present Illness: 30-year-old female states she is have a hard time sleeping over the last 3 days. Patient was seen here earlier tonight states that she has still not been able to sleep. She denies any pains. Denies any illness Related Data Home Medications ?Medication ?Instructions ?Recorded ?Confirmed ascorbic acid (vitamin C) 500 mg 250 mg PO DAILY 08/0408/07/25 tablet (Vitamin C) dxckqaej-bay-xxcc-FA-Ca carb-vit K 1 tab PO DAILY 07/1308/07/25 18 mg iron-400 mcg-500 mg tablet mecobalamin (vitamin B12) 1,000 1,000 mcg PO DAILY 11/0508/07/25 mcg chewable tablet (B12 Active) lorazepam 1 mg tablet 1 mg PO BEDTIME PRN Anxiety 08/07/25 08/07/25 pantoprazole 40 mg tablet,delayed 40 mg PO QAM 5 08/07/25 release trazodone 50 mg tablet See Rx Instructions .Route . COMPLEX 08/07/25 08/07/25 Previous Rx's ?Medication ?Instructions ?Recorded lamotrigine 25 mg tablet (Lamictal) 25 mg PO DAILY 30 days #30 tabs 07/23/25 olanzapine 2.5 mg tablet (Zyprexa) 2.5 mg PO BID PRN a nxiety #60 tabs 07/23/25 Allergies Allergy/AdvReac Type Severity Reaction Status Date / Time escitalopram (From Lexapro) Allergy ADR-Seizure Verified 08/02/25 15:56 sertraline (From Zoloft) Allergy ADR-Seizure Verified 08/02/25 15:56 ketorolac (From Toradol) AdvReac ADR-Anxiety Verified 08/02/25 15:57 [facility] ED PFSH: Medical History (Updated 08/09/25 @ 08:23 by Linda Ulloa MD) History of anemia Acid reflux Depression Anxiety IBS (irritable bowel syndrome) Insomnia Asthma Anemia Surgical History History of bilateral tubal ligation History of History of cholecystectomy Family History Grandmother Cancer Maternal-brain Mother Cancer breast/cervical Family/Other Cancer Maternal aunt-breast/cervical Family/Other Cancer, Onset Age: 4 Maternal pgtny-rumcudtk-airfst away d/t this Brother Psychiatric illness Sister Psychiatric illness Sister Psychiatric illness Other Bleeding disorder Diabetes Hypertension Lung disease Stroke Denies family history of CAD (coronary artery disease) Clotting disorder Dementia Hyperlipidemia Chronic kidney disease (CKD) Anesthesia complication Social History Smoking and tobacco/nicotine status: never used tobacco/nicotine Alcohol intake: never Substance/Drug Use: never Lives independently: Yes Marital status: Number of children: 5 Current occupational status: disabled Rosalind/Islam: Baptism Special rosalind needs: No Agree to transfusion: Yes Physical Exam Const: COMMON NORMALS: no acute distress, patient oriented x3 and healthy appearing HENMT: COMMON NORMALS: normocephalic and atraumatic HEAD & SCALP: normocephalic and atraumatic Eye: COMMON NORMALS: conjunctivae normal CONJUNCTIVA: Yes conjunctivae normal Neck/C-Spine: COMMON NORMALS: full ROM and supple Chest: COMMONS NORMALS: normal inspection of the chest Resp: COMMON NORMALS: normal respiratory effort Cardio: COMMON NORMALS: regular rate RATE: regular rate Extremity: COMMON NORMALS: normal to inspection and full ROM Neuro: COMMON NORMALS: patient oriented x3, moves all extremities and no focal motor deficits Psych: COMMON NORMALS: mental status grossly normal, Normal thought process present and cooperative THOUGHT PROCESS: Normal thought process present Skin: COMMON NORMALS: no rashes or lesions noted and no wounds GENERAL SKIN EXAM: no rashes or lesions noted Course Vital Signs: Vital signs: Vital Signs Pulse Rate 110 H 08/09/25 08:16 Respiratory Rate 18 08/09/25 08:16 Blood Pressure 140/87 08/09/25 08:16 Pulse Oximetry 98 08/09/25 08:16 Oxygen Delivery Me thod Room Air 08/09/25 08:16 MDM - General Adult Medical Decision Making Patient presents here with insomnia she has no other complaints here she is well-appearing here did give her Ativan Benadryl she is stable for discharge follow-up PCP return if worsening. Medical Records I reviewed the patient's medical records. No radiology studies performed this visit Discharge Plan Discharge Patient Disposition: Home Clinical Impression: Insomnia Condition: Stable Prescriptions: No Action mecobalamin (vitamin B12) [B12 Active] 1,000 mcg tablet,chewable 1,000 mcg PO DAILY ascorbic acid (vitamin C) [Vitamin C] 500 mg Tablet 250 mg PO DAILY Women's Multivitamin 18 mg iron-400 mcg-500 mg Tablet 1 tab PO DAILY lamotrigine [Lamictal] 25 mg tablet 25 mg PO DAILY 30 Days Qty: 30 0RF Rx Instructions: Take 1 p.o. daily in AM. olanzapine [Zyprexa] 2.5 mg tablet 2.5 mg PO BID PRN (Reason: anxiety) Qty: 60 0RF Rx Instructions: Take 1 by mouth up to 4 times a day as needed for anxiety. trazodone 50 mg tablet See Rx Instructions .ROUTE .COMPLEX Rx Instructions: TAKE 1/2 TABLET BY MOUTH IN THE MORNING AND TAKE 1 TABLET BY MOUTH AT NIGHT pantoprazole 40 mg tablet,delayed release (DR/EC) 40 mg PO QAM lorazepam 1 mg tablet 1 mg PO BEDTIME PRN (Reason: Anxiety) Discharge Orders: Discharge ED (Routine); Ordered 08/09/25 Ordered By: Linda Ulloa Referrals: Arben Sigala MD [Primary Care Provider, Family Practice] - 4-7 days Discharge Diet: Advance as tolerated Discharge Activity: Resume usual activity Patient Instructions: Insomnia (ED) Print Language: Citizen Of [place] Coding Level of Care Code ED Expediter Clerk for Zach Moe
[2025-08-09] MEDS: diphenhydrAMINE 50 mg/mL SDV 1mL IM (08:32)
[2025-08-09 08:33] VITALS: TEMP 37.1
[2025-08-09] MEDS: LORazepam 2 mg/mL INJ 1 mL IM (08:33)
== END 2025-08-09 08:33 | disposition home or self-care (01) ==
PROVIDERS: Emergency Provider Emergency Medicine
DX: G47.00 Insomnia, unspecified (principal)
CPT/HCPCS: 96372; 99284; J1200; J2060

== ENCOUNTER 2025-08-10 08:50 | Emergency (ER) | payer MEDICAID, SELFPAY ==
--- OUTSIDE RECORDS SUMMARY | 2024-05-29 05:00 | XMS_ITS ---
Author Organization [facility] Accounts Recei vable Address [address] [place] [address] Care Team Providers Care Ornamental Metal Fabricator Apprentice Name Role Phone Micah Ragsdale Unavailable [phone] Lopez Lee Unavailable REASON FOR VISIT ape Social History Sex Assigned At : Social History Observation Description Sex Assigned At Female Encounters Encounter Location Date Provider Diagnosis [address] [address] 05/29/2024 Lopez Lee Plan Of Treatment No Information Progress Notes * Janet JOHNSONDOB:1994 (30 yo F)Acc No.[id number]:05/29/2024 Patient: Mikki Thorntonney Provider: Lissy Serraot RDH :1995 A ge:29 Y S ex:Female Date:05/29/2024 Address:[address] [place] [address], [facility] Patient's Default Facility:B [facility] Subjective: * Chief Complaints: * A pe Billing Information: * Procedure Codes: * Electronic signature of Quinn Lee RDH on 08/10/2025 at 08:57 AM CLOUD SYSTEMS ADMINISTRATOR Sign off status: Pending * Provider: Lissy Serrato RDH Date: 0 05/29/2024 Generated for Karrii ng/Faaminahg/eTransmitting on: 1 10/10/2024 08:57 AM CLOUD SYSTEMS ADMINISTRATOR
--- OUTSIDE RECORDS SUMMARY | 2025-01-10 02:00 | XMS_ITS ---
Author Organization [facility] Accounts Recei vable Address [address] [place] [address] Care Team Providers Care Receivable Clerk Name Role Phone Micah Ragsdale Unavailable [phone] Brody Spring Unavailable [phone] REASON FOR VISIT comp, xr, reeval tx.plp Social History Sex Assigned At : Social History Observation Description Sex Assigned At Female Encounters Encounter Location Date Provider Diagnosis [address] [address] 01/10/2025 Spring Skinner Plan Of Treatment No Information Progress Notes * Janet JOHNSONDOB:1994 (30 yo F)Acc No.[id number]:01/10/2025 Progress Note Patient: Mikki Thorntonney Provider: Kostas Skinner RDH :1995 A ge:29 Y S ex:Female Date:01/10/2025 Address:[address] [place] [address], [facility], [id number] Patient's Default Facility:B [facility] Subjective: * Chief Complaints: * C omp, xr, reeval tx.plp * Electronic signature of Spring Skinner RDH on 08/10/2025 at 08:58 AM DEPUTY CHIEF SHERIFF Sign off status: Pending * Provider: Kostas Skinner RDH Date: 0 01/10/2025 Generated for Printi ng/Faxing/eTransmitting on: 1 10/10/2024 08:58 AM DEPUTY CHIEF SHERIFF
--- OUTSIDE RECORDS SUMMARY | 2025-06-13 02:00 | XMS_ITS ---
Author Organization [facility] Accounts Recei vable Address [address] [place] [address] Care Team Providers Care Public Services Assistant Name Role Phone Micah Ragsdale Unavailable [phone] ArenCarrie lopez Unavailable [phone] REASON FOR VISIT APE, BWX, PEX gn Social History Sex Assigned At : Social History Observation Description Sex Assigned At Female Encounters Encounter Location Date Provider Diagnosis [address] [address] 06/13/2025 Carrie Younger Plan Of Treatment No Information Progress Notes * Janet JOHNSONDOB:1994 (30 yo F)Acc No.[id number]:06/13/2025 Patient: Andrews Janet almonte Provider: Andrews Younger [facility] :1995 A ge:30 Y S ex:Female Date:06/13/2025 Address:[address] [place] [address] [address], [facility], [id number] Patient's Default Facility:B [facility] Subjective: * Chief Complaints: * A PE, BWX, PEX gn * Electronic signature of [facility] evita Younger on 08/10/2025 at 08:58 AM DIRECTOR OF CULTURE Sign off status: Pending * Provider: Andrews Younger [facility] Date: Generated for Printi ng/Faxing/eTransmitting on: 10/10/2024 08:58 AM DIRECTOR OF CULTURE
[2025-08-10 08:51] VITALS: BP 117/93; PULSE 111; RESP 16; TEMP 36.4; O2SAT 100; BMI 28.6
--- OUTSIDE RECORDS SUMMARY | 2025-08-10 08:58 | XMS_ITS | Patient Health Record ---
Author Organization [facility] Accounts Recei vable Address [address] [place] [address] Care Team Providers Care Patient Registration Manager Name Role Phone Micah Ragsdale Unavailable [phone] Spring Skinner Unavailable [phone] Carrie Younger Unavailable [phone] Allergies Allergen (clinical drug ingredient) Drug/Non Drug [...] Status Risk Notes Problem Information temporarily unavailable Tooth pain (K08.89) Active confirmed Problem Information temporarily unavailable Screening for malignant neoplasm of the oral cavity (V76.42) Active confirmed Problem Information temporarily unavailable Risk for dental caries, high (Z91.843) Active confirmed Vital Signs Heart Rate 74 BPM 04/11/2025 Blood pressure diastolic 69 mm Hg 04/11/2025 Height 65 in 04/11/2025 Blood pressure systolic 107 mm Hg 04/11/2025 Weight 171.6 lbs 04/11/2025 BMI 28.55 kg/m2 04/11/2025 Encounters Encounter Location Date Provider Diagnosis [facility] [address] [address] 03/13/2025 Carrie Aren Tooth pain K08.[address] [address] 04/11/2025 u Hasme Assessments Encounter Date Diagnosis (ICD Code) [...] Date Coverage End Date [facility] [address] [place] [address] [phone] [id number] Janet Johnson Self - patient is the insured Medical (General) History Medical History History ICD Code Allergies ADD\ ADHD astma Anxeity and Depression Surgical History Surgery Date(Month/Year) Gallbladder Tub tied C section Hospitalization History Reason Date(Month/Year) see above
--- OUTSIDE RECORDS SUMMARY | 2025-08-10 08:58 | XMS_ITS | Patient Health Record ---
Author Organization [facility] Address [address] [place] [address] Care Team Providers Care Long Chain Beamer Name Role Phone Arben Sigala MD Primary Care Provider Unavailabl e Beena Ortiz Unavailable [phone] Allergies Allergen (clinical drug ingredient) Drug/Non Drug [...] Date Status Comme nts Influenza (whole), CPT 70350 Inactive Unknown 02/28/2019 Administered Influenza (whole), CPT 58121 Inactive Unknown 06/17/2019 Administered Social History Tobacco [...] End Date [place] [address] [place] [address] [id number] Janet Fisher Self - patient is the insured Medical (General) History Medical History History ICD Code Asthma Closed fracture of distal phalanx of fin calli Irregular periods Anemia Anxiety Chronic depression Irritable colon anxiety Surgical History Surgery Date(Month/Year) Bilateral tubal ligation 09/25/2019 section 2018 Cholecystectomy 2015 Hospitalization History Reason Date(Month/Year) see surgerys
[2025-08-10 09:00] VITALS: PULSE 90; O2SAT 100
--- NOTE | 2025-08-10 09:01 | W.ED.ANXIETY ---
HPI - Anxiety General: Chief Complaint: Anxiety Stated Complaint: nausea, panic attacks Time Seen by Provider: 08/10/25 08:56 Source: patient Mode of arrival: ambulatory Limitations: no limitations History of Present Illness: Patient is a 30-year-old female with 10 prior visit this month for the same issue, presenting with anxiety. She was seen last night due to insomnia and anxiety, given shot of Benadryl and Ativan and discharged home. States today she is having nausea, cannot keep anything down. She has no suicidal ideation or homicidal ideation. States that she has followed up with [facility] [place] but cannot get her medications refilled until next month. Also has been taking trazodone with no help. No pain. No fevers. Anxious at this time. MD complaint: anxiety Onset (ago): month(s) Severity: similar to previous episodes Associated symptoms: Reports nausea; Deny chest pain, chills, fever(s), headache(s), palpitations or vomiting Related Data Home Medications ?Medication ?Instructions ?Recorded ?Confirmed ascorbic acid (vitamin C) 500 mg 250 mg PO DAILY 08/04/24 08/07/25 tablet (Vitamin C) [id number]-ofr-[id number]-FA-Ca carb-vit K 1 tab PO DAILY 08/04/24 08/07/25 18 mg iron-400 mcg-500 mg tablet mecobalamin (vitamin B12) 1,000 1,000 mcg PO DAILY 05/13/25 08/07/25 mcg chewable tablet (B12 Active) lorazepam 1 mg tablet 1 mg PO BEDTIME PRN Anxiety 08/07/25 08/07/25 pantoprazole 40 mg tablet,delayed 40 mg PO QAM 08/07/25 08/07/25 release trazodone 50 mg tablet See Rx Instructions .Route .COMPLEX 08/07/25 08/07/25 Previous Rx's ?Medication ?Instructions ?Recorded lamotrigine 25 mg tablet (Lamictal) 25 mg PO DAILY 30 days #30 tabs 07/23/25 olanzapine 2.5 mg tablet (Zyprexa) 2.5 mg PO BID PRN anxiety #60 tabs 07/23/25 Allergies Allergy/AdvReac Type Severity Reaction Status Date / Time escitalopram (From Lexapro) Allergy ADR-Seizure Verified 08/10/25 08:58 sertraline (From Zoloft) Allergy ADR-Seizure Verified 08/10/25 08:58 ketorolac (From Toradol) AdvReac ADR-Anxiety Verified 08/10/25 08:58 Review of Systems General: Reports: 10 or more systems reviewed and unremarkable except in HPI and below Const: Denies: fever(s), chills or fatigue Eyes: Denies: change in vision ENMT: Denies: throat pain, ear or mastoid pain or nasal discharge Card: Denies: chest pain, palpitations, swelling of feet/ankles or lightheadedness Resp: Denies: dyspnea, productive cough or wheezing GI: Reports: nausea; Denies: abdominal pain, vomiting, diarrhea or constipation : Denies: flank pain, difficulty voiding, dysuria or urinary frequency Musc: Denies: neck pain, back pain or joint pain Skin/Breast: Denies: rash Neuro: Denies: headache(s), numbness in extremities or weakness in extremities Psych: Reports: anxiety; Denies: visual hallucinations, auditory hallucinations, tactile hallucinations, suicidal ideation or homicidal ideation PFSH ED PFSH: Medical History History of anemia Acid reflux Depression Anxiety IBS (irritable bowel syndrome) Insomnia Asthma Anemia Surgical History History of bilateral tubal ligation History of History of cholecystectomy Family History Grandmother Cancer Maternal-brain Mother Cancer breast/cervical Family/Other Cancer Maternal aunt-breast/cervical Family/Other Cancer, Onset Age: 4 Maternal ipqbn-ljmhvmfn-oqchhz away d/t this Brother Psychiatric illness Sister Psychiatric illness Sister Psychiatric illness Other Bleeding disorder Diabetes Hypertension Lung disease Stroke Denies family history of CAD (coronary artery disease) Clotting disorder Dementia Hyperlipidemia Chronic kidney disease (CKD) Anesthesia complication Social History Smoking and tobacco/nicotine status: never used tobacco/nicotine Alcohol intake: never Substance/Drug Use: never Lives independently: Yes Marital status: Number of children: 5 Current occupational status: disabled Rosalind/Sabianism: Alevism Special rosalind needs: No Agree to transfusion: Yes Physical Exam Const: COMMON NORMALS: patient oriented x3 and no limitations GENERAL APPEARANCE: cooperative and anxious ORIENTATION/CONSCIOUSNESS: Yes awake, Yes oriented to person, Yes oriented to place and Yes oriented to time OTHER: tremulous HENMT: COMMON NORMALS: normocephalic, atraumatic and hearing grossly normal bilaterally HEAD & SCALP: normocephalic and atraumatic Neck/C-Spine: COMMON NORMALS: full ROM, supple and no JVD Resp: COMMON NORMALS: normal respiratory effort, No retractions, No use of accessory muscles and clear to auscultation bilaterally AUSCULTATION: clear to auscultation bilaterally Cardio: COMMON NORMALS: no JVD, regular rate, regular rhythm, No clicks present (Cardio), No murmurs present (Cardio) and No rub (Cardio) RATE: regular rate RHYTHM: regular rhythm Extremity: COMMON NORMALS: normal to inspection, full ROM and capillary refill normal Neuro: COMMON NORMALS: patient oriented x3, moves all extremities, no focal motor deficits and no sensory deficits noted SENSORIUM/ORIENTATION: Yes oriented to person, Yes oriented to place and Yes oriented to time Psych: THOUGHT CONTENT: No Suicidality present, No Homicidality present and No Hallucination(s) present Skin: COMMON NORMALS: no rashes or lesions noted GENERAL SKIN EXAM: no rashes or lesions noted Course Vital Signs: Vital signs: Vital Signs Temperature 97.6 F 08/10/25 08:51 Pulse Rate 90 08/10/25 09:00 Respiratory Rate 16 08/10/25 08:51 Blood Pressure 117/93 08/10/25 08:51 Pulse Oximetry 100 08/10/25 09:00 Oxygen Delivery Me thod Room Air 08/10/25 08:51 MDM - Anxiety Medical Decision Making Patient presented, this is her 10th visit this month, for anxiety and nausea. States that she is not set to see [facility] [place] for a while, she cannot keep anything down. Is not SI or HI. Lab work obtained normal, she is nontoxic-appearing on exam though obviously anxious. Ativan and Zofran given IM here in the ED. There is no reason for admission to the neuropsychiatric unit, no reason for admission to the hospital, she is escorted down to the crisis center by security however for further evaluation. Lab Data 08/10/25 09:09 08/10/25 09:09 Laboratory Results WBC 6.70 10^3/uL (3.29-11.43) 08/10/25 09:09 RBC 4.23 10^6/uL (3.85-5.65) 08/10/25 09:09 Hgb 12.60 g/dL (11.27-16.99) 08/10/25 09:09 Hct 38.4 % (36-47) 08/10/25 09:09 MCV 90.8 fl (85-98) 08/10/25 09:09 MCH 29.8 pg (27-33) 08/10/25 09:09 MCHC 32.8 g/dL (30-55) 08/10/25 09:09 RDW 11.9 % (12.1-15.1) L 08/10/25 09:09 Plt Count 218 10^3/cmm (157-399) 08/10/25 09:09 MPV 9.7 fL (7.4-10.4) 08/10/25 09:09 Neut % (Auto) 68.0 % 08/10/25 09:09 Lymph % (Auto) 23.1 % 08/10/25 09:09 [place] % (Auto) 7.6 % 08/10/25 09:09 Eos % (Auto) 0.9 % 08/10/25 09:09 Baso % (Auto) 0.3 % 08/10/25 09:09 Neut # (Auto) 4.55 10^3/uL (1.8-7.7) 08/10/25 09:09 Lymph # (Auto) 1.6 10^3/uL (0.8-4.8) 08/10/25 09:09 [place] # (Auto) 0.5 10^3/uL (0.2-0.9) 08/10/25 09:09 Eos # (Auto) 0.1 10^3/uL (0.0-0.8) 08/10/25 09:09 Baso # (Auto) 0.0 10^3/uL (0.0-0.1) 08/10/25 09:09 Nucleated RBC % (auto) 0 % 08/10/25 09:09 Nucleated RBCs # 0.0 /100WBC 08/10/25 09:09 Sodium 139 mmol/L (136-145) 08/10/25 09:09 Potassium 3.4 mmol/L (3.5-5.1) L 08/10/25 09:09 Chloride 101 mmol/L (98-107) 08/10/25 09:09 Carbon Dioxide 22 mmol/L (22-29) 08/10/25 09:09 Anion Gap 19.4 (5-19) H 08/10/25 09:09 BUN 17 mg/dL (6-20) 08/10/25 09:09 Creatinine 0.9 mg/dL (0.5-0.9) 08/10/25 09:09 GFR Calculation 73.5 mL/min (90-130) L 08/10/25 09:09 Glucose 98 mg/dL (65-115) 08/10/25 09:09 Calculated Osmolality 290 mOsm/kg (285-295) 08/10/25 09:09 Calcium 8.8 mg/dL (8.5-10.5) 08/10/25 09:09 Total Bilirubin 1.2 mg/dL (0.15-1.2) 08/10/25 09:09 AST 20 U/L (0-32) 08/10/25 09:09 ALT 11 U/L (0-33) 08/10/25 09:09 Alkaline Phosphatase 62 U/L (35-105) 08/10/25 09:09 Total Protein 7.4 g/dL (6.6-8.7) 08/10/25 09:09 Albumin 4.6 g/dL (3.5-5.2) 08/10/25 09:09 Globulin 2.8 g/dL (1.3-4.6) 08/10/25 09:09 No radiology studies performed this visit Discharge Plan Discharge Patient Disposition: Home Clinical Impression: Acute anxiety Condition: Stable Prescriptions: No Action mecobalamin (vitamin B12) [B12 Active] 1,000 mcg tablet,chewable 1,000 mcg PO DAILY ascorbic acid (vitamin C) [Vitamin C] 500 mg Tablet 250 mg PO DAILY Women's Multivitamin 18 mg iron-400 mcg-500 mg Tablet 1 tab PO DAILY lamotrigine [Lamictal] 25 mg tablet 25 mg PO DAILY 30 Days Qty: 30 0RF Rx Instructions: Take 1 p.o. daily in AM. olanzapine [Zyprexa] 2.5 mg tablet 2.5 mg PO BID PRN (Reason: anxiety) Qty: 60 0RF Rx Instructions: Take 1 by mouth up to 4 times a day as needed for anxiety. trazodone 50 mg tablet See Rx Instructions .ROUTE .COMPLEX Rx Instructions: TAKE 1/2 TABLET BY MOUTH IN THE MORNING AND TAKE 1 TABLET BY MOUTH AT NIGHT pantoprazole 40 mg tablet,delayed release (DR/EC) 40 mg PO QAM lorazepam 1 mg tablet 1 mg PO BEDTIME PRN (Reason: Anxiety) Discharge Orders: Discharge ED (Routine); Ordered 08/10/25 Ordered By: Marcos Zabala Referrals: Arben Sigala MD [Primary Care Provider, Family Practice] Patient Instructions: Patient Portal & Kelly Instructions Activity Restrictions/Additional Instructions: Please go to the crisis center for further evaluation. Print Language: Hungarian Coding Level of Care Code ED Anodic Treater for Zach Moe
[2025-08-10 09:15] LABS: Hematocrit 38.4 % (36-47); Hemoglobin 12.60 g/dL (11.27-16.99); Mean Corpuscular HGB Conc 32.8 g/dL (30-55); Mean Corpuscular Hemoglobin 29.8 pg (27-33); Mean Corpuscular Volume 90.8 fl (85-98); Nucleated Red Blood Cells % 0 %; Platelet Count 218 10^3/cmm (157-399); Red Blood Count 4.23 10^6/uL (3.85-5.65); White Blood Count 6.70 10^3/uL (3.29-11.43)
[2025-08-10] MEDS: ondansetron 2 mg/ML SDV 2 mL 4 MG IM (09:21)
[2025-08-10] MEDS: LORazepam 2 mg/mL INJ 1 mL IM (09:21)
[2025-08-10 09:32] LABS: Alanine Aminotransferase 11 U/L (0-33); Albumin Level 4.6 g/dL (3.5-5.2); Alkaline Phosphatase 62 U/L (35-105); Anion Gap 19.4 (5-19); Aspartate Amino Transferase 20 U/L (0-32); Blood Urea Nitrogen 17 mg/dL (6-20); Calcium 8.8 mg/dL (8.5-10.5); Carbon Dioxide 22 mmol/L (22-29); Chloride 101 mmol/L (98-107); Globulin 2.8 g/dL (1.3-4.6); Glucose 98 mg/dL (65-115); Osmolality Calculated 290 mOsm/kg (285-295); Potassium 3.4 mmol/L (3.5-5.1); Sodium 139 mmol/L (136-145); Total Protein 7.4 g/dL (6.6-8.7)
[2025-08-10 09:51] VITALS: BP 121/80; PULSE 107; O2SAT 100
== END 2025-08-10 09:53 | disposition home or self-care (01) ==
PROVIDERS: Emergency Provider Physician Assistant
DX: F41.8 Other specified anxiety disorders (principal)
CPT/HCPCS: 36415; 80053; 85025; 96372; 99284; J2060; J2405

== ENCOUNTER 2025-08-20 19:42 | Emergency (ER) | payer MEDICAID, SELFPAY ==
[2025-08-20 19:45] VITALS: BP 122/83; PULSE 87; RESP 18; TEMP 36.7; O2SAT 100
--- NOTE | 2025-08-20 20:02 | ED_ITS ---
HPI - Anxiety General: Chief Complaint: Anxiety Stated Complaint: Anxiety Time Seen by Provider: 08/20/25 19:57 Source: patient Mode of arrival: ambulatory Limitations: no limitations History of Present Illness: 30-year-old female who states that she h as long history anxiety she has been seen here multiple times for anxiety she was admitted to [facility] last week states she also then had an anxiety attack yesterday she states she went to [place] [facility] they gave her dose Ativan that helped her through the night but is having anxiety again today and does not see her PCP tomorrow she denies any SI or HI Related Data Home Medications ?Medication ?Instructions ?Recorded ?Confirmed ascorbic acid (vitamin C) 500 mg 250 mg PO DAILY 08/0408/10/25 tablet (Vitamin C) yqvzudeu-xgh-rcjb-FA-Ca carb-vit K 1 tab PO DAILY 07/1308/10/25 18 mg iron-400 mcg-500 mg tablet mecobalamin (vitamin B12) 1,000 1,000 mcg PO DAILY 11/0508/10/25 mcg chewable tablet (B12 Active) lorazepam 1 mg tablet 1 mg PO BEDTIME PRN Anxiety 08/07/25 08/10/25 pantoprazole 40 mg tablet,delayed 40 mg PO QAM 5 08/10/25 release trazodone 50 mg tablet See Rx Instructions .Route . COMPLEX 08/07/25 08/10/25 diphenhydramine HCl 25 mg capsule 25 mg PO TID PRN Anx iety 08/10/25 08/10/25 (Benadryl) lamotrigine 25 mg tablet (Lamictal) 25 mg PO QAM 08/1008/10/25 olanzapine 2.5 mg tablet (Zyprexa) 2.5 mg PO QID PRN a nxiety 08/10/25 08/10/25 Allergies Allergy/AdvReac Type Severity Reaction Status Date / Time escitalopram (From Lexapro) Allergy ADR-Seizure Verified 08/10/25 08:58 sertraline (From Zoloft) Allergy ADR-Seizure Verified 08/10/25 08:58 ketorolac (From Toradol) AdvReac ADR-Anxiety Verified 08/10/25 08:58 [facility] ED PFSH: Medical History (Updated 08/20/25 @ 20:02 by Linda Ulloa MD) History of anemia Acid reflux Depression Anxiety IBS (irritable bowel syndrome) Insomnia Asthma Anemia Surgical History History of bilateral tubal ligation History of History of cholecystectomy Family History Grandmother Cancer Maternal-brain Mother Cancer breast/cervical Family/Other Cancer Maternal aunt-breast/cervical Family/Other Cancer, Onset Age: 4 Maternal zusxw-ajdbbion-hmdxsk away d/t this Brother Psychiatric illness Sister Psychiatric illness Sister Psychiatric illness Other Bleeding disorder Diabetes Hypertension Lung disease Stroke Denies family history of CAD (coronary artery disease) Clotting disorder Dementia Hyperlipidemia Chronic kidney disease (CKD) Anesthesia complication Social History Smoking and tobacco/nicotine status: never used tobacco/nicotine Alcohol intake: never Substance/Drug Use: never Lives independently: Yes Marital status: Number of children: 5 Current occupational status: disabled Rosalind/Islam: Scientology Special rosalind needs: No Agree to transfusion: Yes Physical Exam Const: COMMON NORMALS: patient oriented x3 HENMT: COMMON NORMALS: normocephalic and atraumatic HEAD & SCALP: normocephalic and atraumatic Neck/C-Spine: COMMON NORMALS: full ROM and supple Chest: COMMONS NORMALS: normal inspection of the chest Resp: COMMON NORMALS: normal respiratory effort Cardio: COMMON NORMALS: regular rate, regular rhythm and No murmurs present (Cardio) RATE: regular rate RHYTHM: regular rhythm Extremity: COMMON NORMALS: normal to inspection and full ROM Neuro: COMMON NORMALS: patient oriented x3, moves all extremities and no focal motor deficits Psych: COMMON NORMALS: mental status grossly normal, Normal thought process present and cooperative THOUGHT PROCESS: Normal thought process present Skin: COMMON NORMALS: no rashes or lesions noted and no wounds GENERAL SKIN EXAM: no rashes or lesions noted Course 2 Vital Signs: Vital signs: Vital Signs Temperature 98.1 F 08/20/25 19:45 Pulse Rate 87 08/20/25 19:45 Respiratory Rate 18 08/20/25 19:45 Blood Pressure 122/83 08/20/25 19:45 Pulse Oximetry 100 08/20/25 19:45 Oxygen Delivery Me thod Room Air 08/20/25 19:45 MDM - Anxiety Medical Decision Making Patient presents here with anxiety is chronic in nature she is well-appearing here no signs of having a panic attack here no signs of SI or HI I did give her 1 dose of Ativan she has an appoint with her PCP tomorrow follow-up as planned return if worsening. No radiology studies performed this visit Discharge Plan Discharge Patient Disposition: Home Clinical Impression: Acute anxiety Condition: Stable Prescriptions: No Action mecobalamin (vitamin B12) [B12 Active] 1,000 mcg tablet,chewable 1,000 mcg PO DAILY diphenhydramine HCl [Benadryl] 25 mg Capsule 25 mg PO TID PRN (Reason: Anxiety) olanzapine [Zyprexa] 2.5 mg tablet 2.5 mg PO QID PRN (Reason: anxiety) lamotrigine [Lamictal] 25 mg tablet 25 mg PO QAM ascorbic acid (vitamin C) [Vitamin C] 500 mg Tablet 250 mg PO DAILY Women's Multivitamin 18 mg iron-400 mcg-500 mg Tablet 1 tab PO DAILY trazodone 50 mg tablet See Rx Instructions .ROUTE .COMPLEX Rx Instructions: TAKE 1/2 TABLET BY MOUTH IN THE MORNING AND TAKE 1 TABLET BY MOUTH AT NIGHT pantoprazole 40 mg tablet,delayed release (DR/EC) 40 mg PO QAM lorazepam 1 mg tablet 1 mg PO BEDTIME PRN (Reason: Anxiety) Discharge Orders: Discharge ED (Routine); Ordered 08/20/25 Ordered By: Linda Ulloa Referrals: Arben Sigala MD [Primary Care Provider, Family Practice] Discharge Diet: Advance as tolerated Discharge Activity: Resume usual activity Patient Instructions: Anxiety (ED) Print Language: Georgian Coding Level of Care Code ED Outside Sales Professional for Zach Moe
== END 2025-08-20 20:09 | disposition home or self-care (01) ==
PROVIDERS: Emergency Provider Emergency Medicine
DX: F41.8 Other specified anxiety disorders (principal)
CPT/HCPCS: 99282

== ENCOUNTER 2025-08-21 16:16 | Emergency (ER) | payer MEDICAID, SELFPAY ==
--- OUTSIDE RECORDS SUMMARY | 2024-05-29 05:00 | XMS_ITS ---
Author Organization [facility] Accounts Recei vable Address [address] [place] [address] Care Team Providers Care Stone Mason Name Role Phone Micah Ragsdael Unavailable [phone] Lopez Lee Unavailable REASON FOR VISIT ape Social History Sex Assigned At : Social History Observation Description Sex Assigned At Female Encounters Encounter Location Date Provider Diagnosis [address] [address] 05/29/2024 Lopez Lee Plan Of Treatment No Information Progress Notes * Janet JOHNSONDOB:1994 (30 yo F)Acc No.[id number]:05/29/2024 Patient: Mikki Thorntonney Provider: Lissy Serrato RDH :1995 A ge:29 Y S ex:Female Date:05/29/2024 Address:[address] [place] [address], [facility] Patient's Default Facility:B [facility] Subjective: * Chief Complaints: * A pe Billing Information: * Procedure Codes: * Electronic signature of Quinn Lee RDH on 08/21/2025 at 07:44 PM LEAD GENERATION REPRESENTATIVE Sign off status: Pending * Provider: Lissy Serrato RDH Date: 0 05/29/2024 Generated for Printi ng/Faxing/eTransmitting on: 1 10/22/2024 07:44 PM LEAD GENERATION REPRESENTATIVE
--- OUTSIDE RECORDS SUMMARY | 2025-01-10 02:00 | XMS_ITS ---
Author Organization [facility] Accounts Recei vable Address [address] [place] [address] Care Team Providers Care Primary Care Physician Name Role Phone Micah Ragsdale Unavailable [phone] Brody Spring Unavailable [phone] REASON FOR VISIT comp, xr, reeval tx.plp Social History Sex Assigned At : Social History Observation Description Sex Assigned At Female Encounters Encounter Location Date Provider Diagnosis [address] [address] 01/10/2025 Spring Skinner Plan Of Treatment No Information Progress Notes * Janet JOHNSONDOB:1994 (30 yo F)Acc No.[id number]:01/10/2025 Progress Note Patient: Mikki Thorntonney Provider: Kostas Skinner RDH :1995 A ge:29 Y S ex:Female Date:01/10/2025 Address:[address] [place] [address], [facility], [place] Patient's Default Facility:B [facility] Subjective: * Chief Complaints: * C omp, xr, reeval tx.plp * Electronic signature of Spring Skinner RDH on 08/21/2025 at 07:44 PM INFORMATION SECURITY SYSTEMS INSTRUCTOR Sign off status: Pending * Provider: Kostas Skinner RDH Date: 0 01/10/2025 Generated for Printi ng/Faxing/eTransmitting on: 1 10/22/2024 07:44 PM INFORMATION SECURITY SYSTEMS INSTRUCTOR
--- OUTSIDE RECORDS SUMMARY | 2025-06-13 02:00 | XMS_ITS ---
Author Organization [facility] Accounts Recei vable Address [address] [place] [address] Care Team Providers Care Financial Assistance Specialist Name Role Phone Micah Ragsdale Unavailable [phone] ArenCarrie lopez Unavailable [phone] REASON FOR VISIT APE, BWX, PEX gn Social History Sex Assigned At : Social History Observation Description Sex Assigned At Female Encounters Encounter Location Date Provider Diagnosis [address] [address] 06/13/2025 Carrie Younger Plan Of Treatment No Information Progress Notes * Janet JOHNSONDOB:1994 (30 yo F)Acc No.[id number]:06/13/2025 Patient: Andrews Janet almonte Provider: Andrews Younger [facility] :1995 A ge:30 Y S ex:Female Date:06/13/2025 Address:[address] [place] [address] [address], [facility] Patient's Default Facility:[facility] Subjective: * Chief Complaints: * A PE, BWX, PEX gn * Electronic signature of [facility] evita Younger on 08/21/2025 at 07:44 PM OPERATIONS VICE PRESIDENT Sign off status: Pending * Provider: Andrews Younger [facility] Date: Generated for Printi ng/Faxing/eTransmitting on: 10/22/2024 07:44 PM OPERATIONS VICE PRESIDENT
[2025-08-21 16:17] VITALS: BP 123/66; PULSE 100; RESP 15; TEMP 36.8; O2SAT 99; BMI 27.9
[2025-08-21 16:41] LABS: Hematocrit 41.7 % (36-47); Hemoglobin 14.10 g/dL (11.27-16.99); Mean Corpuscular HGB Conc 33.8 g/dL (30-55); Mean Corpuscular Hemoglobin 30.3 pg (27-33); Mean Corpuscular Volume 89.7 fl (85-98); Nucleated Red Blood Cells % 0 %; Platelet Count 256 10^3/cmm (157-399); Red Blood Count 4.65 10^6/uL (3.85-5.65); White Blood Count 7.40 10^3/uL (3.29-11.43)
[2025-08-21] MEDS: ondansetron hcl ODT 4 mg Tab PO (17:00)
[2025-08-21 17:13] LABS: Glucose Urine UA Negative (Normal); Nitrate Urine Negative (Negative); Specific Gravity, Urine 1.013 (1.005-1.030)
[2025-08-21 17:15] LABS: Add Urine Microscopic? YES; HCG Qualitative Urine. Negative (Negative)
--- NOTE | 2025-08-21 17:19 | W.ED.ANXIETY ---
HPI - Anxiety General: Chief Complaint: Anxiety Stated Complaint: panic attack Time Seen by Provider: 08/21/25 16:22 History of Present Illness: Patient is a 30-year-old female presenting with a chief complaint of anxiety. Patient states that she is not able to fill her prescription per PCP today because it is in [facility]. Patient states she was referred to the emergency room by her PCP for dose of Ativan. Patient does not have any new signs or symptoms of illness such as fever, cough, shortness of breath, hemoptysis, syncope, chest pain. She states that with her anxiety, she occasionally has abdominal cramping and diarrhea which she has been experiencing for the past few days and has had a decreased appetite. She is feeling nauseated but has not vomited. Patient denies dysuria but reports increased urinary frequency. No blood in stool or urine. Patient has been seen in the emergency department 7 times for anxiety since July 12 of this year. Related Data Home Medications ?Medication ?Instructions ?Recorded ?Confirmed ascorbic acid (vitamin C) 500 mg 250 mg PO DAILY 08/04/24 08/10/25 tablet (Vitamin C) qvkohbxy-lrg-tlil-FA-Ca carb-vit K 1 tab PO DAILY 08/04/24 08/10/25 18 mg iron-400 mcg-500 mg tablet mecobalamin (vitamin B12) 1,000 1,000 mcg PO DAILY 05/13/25 08/10/25 mcg chewable tablet (B12 Active) lorazepam 1 mg tablet 1 mg PO BEDTIME PRN Anxiety 08/07/25 08/10/25 pantoprazole 40 mg tablet,delayed 40 mg PO QAM 08/07/25 08/10/25 release trazodone 50 mg tablet See Rx Instructions .Route .COMPLEX 08/07/25 08/10/25 diphenhydramine HCl 25 mg capsule 25 mg PO TID PRN Anxiety 08/10/25 08/10/25 (Benadryl) lamotrigine 25 mg tablet (Lamictal) 25 mg PO QAM 08/10/25 08/10/25 olanzapine 2.5 mg tablet (Zyprexa) 2.5 mg PO QID PRN anxiety 08/10/25 08/10/25 Previous Rx's ?Medication ?Instructions ?Recorded sertraline 25 mg tablet (Zoloft) 25 mg PO DAILY #14 tabs 08/21/25 Allergies Allergy/AdvReac Type Severity Reaction Status Date / Time escitalopram (From Lexapro) Allergy ADR-Seizure Verified 08/10/25 08:58 sertraline (From Zoloft) Allergy ADR-Seizure Verified 08/10/25 08:58 ketorolac (From Toradol) AdvReac ADR-Anxiety Verified 08/10/25 08:58 PFSH ED PFSH: Medical History History of anemia Acid reflux Depression Anxiety IBS (irritable bowel syndrome) Insomnia Asthma Anemia Surgical History History of bilateral tubal ligation History of History of cholecystectomy Family History Grandmother Cancer Maternal-brain Mother Cancer breast/cervical Family/Other Cancer Maternal aunt-breast/cervical Family/Other Cancer, Onset Age: 4 Maternal pruxq-rmyerkhk-noucjc away d/t this Brother Psychiatric illness Sister Psychiatric illness Sister Psychiatric illness Other Bleeding disorder Diabetes Hypertension Lung disease Stroke Denies family history of CAD (coronary artery disease) Clotting disorder Dementia Hyperlipidemia Chronic kidney disease (CKD) Anesthesia complication Social History Smoking and tobacco/nicotine status: never used tobacco/nicotine Alcohol intake: never Substance/Drug Use: never Lives independently: Yes Marital status: Number of children: 5 Current occupational status: disabled Rosalind/Zoroastrian: Judaism Special rosalind needs: No Agree to transfusion: Yes Physical Exam Narrative: EXAM NARRATIVE: Vital signs were reviewed. Patient is alert and oriented. Patient is breathing comfortably, no increased WOB or accessory muscle use. SpO2 is above 95% on RA. Patient has clear lungs b/l, no rhonchi, wheezing or crackles. No hypotension or tachycardia. Abdomen is soft, nondistended and nontender. Patient is moving all extremities, no deformity or gross injury. No lower extremity edema or asymmetry. Course Vital Signs: Vital signs: Vital Signs Temperature 98.2 F 08/21/25 16:17 Pulse Rate 100 08/21/25 16:17 Respiratory Rate 15 08/21/25 16:17 Blood Pressure 123/66 08/21/25 16:17 Pulse Oximetry 99 08/21/25 16:17 Oxygen Delivery Me thod Room Air 08/21/25 16:17 MDM - Anxiety Medical Decision Making 30-year-old female with a chief complaint of anxiety, unable to fill her Ativan today per PCP prescription. Differential diagnosis includes, is not limited to, underlying medical conditions such as urinary tract infection, , dehydration, electrolyte abnormality, pulmonary infection, DVT/PE, thyroid problem, other. On exam she is interocular stable and does not appear toxic. Patient is calm and cooperative. Patient was evaluated with CBC, BMP, D-dimer, TSH, UA and screen to rule out an underlying medical condition/emergency. She was treated with 1 mg of p.o. Ativan and 4 mg of p.o. Zofran. Patient has a normal white blood cell count and is not anemic. She does not have any actionable electrolyte abnormalities, kidney function is at baseline, TSH is normal, patient is not . UA does not demonstrate evidence of infection. Patient will be started on Zoloft, advised patient to not use Ativan as first-line for anxiety and we discussed adverse effects of long-term Ativan use for anxiety. She is agreeable to trying a different medication. Will start her on Zoloft. At this time, patient denies SI or HI. She is appropriate for outpatient management of her anxiety. Patient was counseled on supportive care at home, given return precautions and discharged in stable condition with recommendation for outpatient follow-up with primary care nurse or doctor. Lab Data 08/21/25 16:31 08/21/25 16:31 Laboratory Results WBC 7.40 10^3/uL (3.29-11.43) 08/21/25 16:31 RBC 4.65 10^6/uL (3.85-5.65) 08/21/25 16:31 Hgb 14.10 g/dL (11.27-16.99) 08/21/25 16:31 Hct 41.7 % (36-47) 08/21/25 16:31 MCV 89.7 fl (85-98) 08/21/25 16:31 MCH 30.3 pg (27-33) 08/21/25 16: MCHC 33.8 g/dL (30-55) 08/21/25 16:31 RDW 12.3 % (12.1-15.1) 08/21/25 16:31 Plt Count 256 10^3/cmm (157-399) 08/21/25 16:31 MPV 9.8 fL (7.4-10.4) 08/21/25 16:31 Neut % (Auto) 66.6 % 08/21/25 16:31 Lymph % (Auto) 22.7 % 08/21/25 16:31 [place] % (Auto) 8.5 % 08/21/25 16:31 Eos % (Auto) 1.4 % 08/21/25 16:31 Baso % (Auto) 0.5 % 08/21/25 16:31 Neut # (Auto) 4.93 10^3/uL (1.8-7.7) 08/21/25 16:31 Lymph # (Auto) 1.7 10^3/uL (0.8-4.8) 08/21/25 16:31 [place] # (Auto) 0.6 10^3/uL (0.2-0.9) 08/21/25 16:31 Eos # (Auto) 0.1 10^3/uL (0.0-0.8) 08/21/25 16:31 Baso # (Auto) 0.0 10^3/uL (0.0-0.1) 08/21/25 16:31 Nucleated RBC % (auto) 0 % 08/21/25 16:31 Nucleated RBCs # 0.0 /100WBC 08/21/25 16:31 D-Dimer 0.58 ug/mLFEU (0-0.59) 08/21/25 16:31 Sodium 141 mmol/L (136-145) 08/21/25 16:31 Potassium 4.0 mmol/L (3.5-5.1) 08/21/25 16:31 Chloride 103 mmol/L (98-107) 08/21/25 16:31 Carbon Dioxide 24 mmol/L (22-29) 08/21/25 16:31 Anion Gap 18.0 (5-19) 08/21/25 16:31 BUN 14 mg/dL (6-20) 08/21/25 16:31 Creatinine 1.0 mg/dL (0.5-0.9) H 08/21/25 16:31 GFR Calculation 65.1 mL/min (90-130) L 08/21/25 16:31 Glucose 105 mg/dL (65-115) 08/21/25 16:31 Calculated Osmolality 293 mOsm/kg (285-295) 08/21/25 16:31 Calcium 9.2 mg/dL (8.5-10.5) 08/21/25 16:31 TSH 1.74 uIU/mL (0.27-4.20) 08/21/25 16:31 HCG, Qual Negative (Negative) 08/21/25 16:35 Urine Color Yellow (Yellow) 08/21/25 16:35 Urine Appearance Clear (CLEAR) 08/21/25 16:35 Urine pH 8.5 (5-7) A 08/21/25 16:35 Ur Specific [place] 1.013 (1.005-1.030) 08/21/25 16:35 Urine Protein Negative (Negative) 08/21/25 16:35 Urine Glucose (UA) Negative (Normal) 08/21/25 16:35 Urine Ketones Negative (Negative) 08/21/25 16:35 Urine Blood Negative (Negative) 08/21/25 16:35 Urine Nitrate Negative (Negative) 08/21/25 16:35 Urine Bilirubin Negative (Negative) 08/21/25 16:35 Urine Urobilinogen 1.0 mg/dL (Negative) 08/21/25 16:35 Ur Leukocyte Esterase Negative (Negative) 08/21/25 16:35 Urine RBC 0-2 /hpf (0-2) 08/21/25 16:35 Urine WBC 0-5 /hpf (0-5) 08/21/25 16:35 Ur Squamous Epith Cells 0-5 /hpf (0-5) 08/21/25 16:35 Amorphous Sediment Not Reportable 08/21/25 16:35 Urine Bacteria None seen /hpf (NONE) 08/21/25 16:35 Hyaline Casts 0-4 /lpf H 08/21/25 16:35 No radiology studies performed this visit Discharge Plan Discharge Patient Disposition: Home Clinical Impression: Anxiety Condition: Stable Prescriptions: New sertraline [Zoloft] 25 mg tablet 25 mg PO DAILY Qty: 14 0RF No Action mecobalamin (vitamin B12) [B12 Active] 1,000 mcg tablet,chewable 1,000 mcg PO DAILY diphenhydramine HCl [Benadryl] 25 mg Capsule 25 mg PO TID PRN (Reason: Anxiety) olanzapine [Zyprexa] 2.5 mg tablet 2.5 mg PO QID PRN (Reason: anxiety) lamotrigine [Lamictal] 25 mg tablet 25 mg PO QAM ascorbic acid (vitamin C) [Vitamin C] 500 mg Tablet 250 mg PO DAILY Women's Multivitamin 18 mg iron-400 mcg-500 mg Tablet 1 tab PO DAILY trazodone 50 mg tablet See Rx Instructions .ROUTE .COMPLEX Rx Instructions: TAKE 1/2 TABLET BY MOUTH IN THE MORNING AND TAKE 1 TABLET BY MOUTH AT NIGHT pantoprazole 40 mg tablet,delayed release (DR/EC) 40 mg PO QAM lorazepam 1 mg tablet 1 mg PO BEDTIME PRN (Reason: Anxiety) Discharge Orders: Discharge ED (Routine); Ordered 08/21/25 Ordered By: Sherry Mcmullen Referrals: Arben Sigala MD [Primary Care Provider, Family Practice] Patient Instructions: Opioid Safety, Pain Management, Patient Portal & Kelly Instructions, Anxiety (ED) Activity Restrictions/Additional Instructions: You have been started on sertraline (Zoloft) 25mg daily for two weeks. After 2 weeks, your dose may be increased to 50 mg. Please understand that this medication may take 6 to 8 weeks for full effect. I strongly recommend you establish care with a mental health post acute care nurse such as a psychiatrist to help manage her anxiety and depression. You would also greatly benefit from adjunctive treatment such as therapy and counseling. Please understand that Ativan is addictive, you develop a tolerance to this medication and is not recommended for long-term management of your anxiety. Continue to monitor your condition closely at home. If additional symptoms arise or new symptoms develop, please return to the emergency department for reassessment. Follow up with your primary care doctor. Print Language: Omani Coding Level of Care Code ED Fire Suppression Captain for Zach Moe
[2025-08-21 17:21] LABS: Anion Gap 18.0 (5-19); Blood Urea Nitrogen 14 mg/dL (6-20); Calcium 9.2 mg/dL (8.5-10.5); Carbon Dioxide 24 mmol/L (22-29); Chloride 103 mmol/L (98-107); Glucose 105 mg/dL (65-115); Osmolality Calculated 293 mOsm/kg (285-295); Potassium 4.0 mmol/L (3.5-5.1); Sodium 141 mmol/L (136-145); Thyroid Stimulating Hormone 1.74 uIU/mL (0.27-4.20)
--- OUTSIDE RECORDS SUMMARY | 2025-08-21 19:44 | XMS_ITS | Patient Health Record ---
Author Organization [facility] Accounts Recei vable Address [address] [place] [address] Care Team Providers Care Photographer Apprentice Lithographic Name Role Phone Micah Ragsdale Unavailable [phone] [employer] Unavailable [phone] Carrie Younger Unavailable [phone] Allergies Allergen (clinical drug ingredient) Drug/Non Drug [...] cavity (V76.42) Active confirmed Problem Toothache (finding) (34918560) Tooth pain (K08.89) Active confirmed Problem At high risk for dental caries (finding) (635615291) Risk for dental caries, high (Z91.843) Active confirmed Vital Signs Heart Rate 74 BPM 04/11/2025 Blood pressure diastolic 69 mm Hg 04/11/2025 Height 65 in 04/11/2025 Blood pressure systolic 107 mm Hg 04/11/2025 Weight 171.6 lbs 04/11/2025 BMI 28.55 kg/m2 04/11/2025 Encounters Encounter Location Date Provider Diagnosis [address] [address] 03/13/2025 Carrie Aren Tooth pain K08.[address] [address] 04/11/2025 Abu Hasme Assessments Encounter Date Diagnosis [...] Date Coverage End Date Medicai d-Denta l-[facility] [address] [place] [address] [id number] Janet Johnson Self - patient is the insured Medical (General) History Medical History History ICD Code Allergies ADD\ ADHD astma Anxeity and Depression Surgical History Surgery Date(Month/Year) C section Tub tied Gallbladder Hospitalization History Reason Date(Month/Year) see above
--- OUTSIDE RECORDS SUMMARY | 2025-08-21 19:45 | XMS_ITS | Patient Health Record ---
Author Organization [facility] Address [address] [place] [address] Care Team Providers Care Ball Fringe Machine Operator Name Role Phone Arben Sigala MD Primary Care Provider Unavailabl e Alondra Singer Unavailable [phone] Marce Malave Unavailable [phone] Allergies Allergen (clinical drug ingredient) Drug/Non Drug Allergy documented on EMR Reaction Allergy Type Onset Date Status escitalopram Escitalopram Unknown Drug Allergy A ctive sertraline Sertraline Unknown Drug Allergy Activ e Reason For Referral Reason Appt 09/24/25 Abn f inding on heart monitor Diagnosis 1 Tachycardia, unspeci fied (R00.0) Referring Provider First Name Arben Referring Provider Last Name Zakiya Referring Provider Speciality Family Med icine Referred Organization [facility] Referred Provider Alondra Singer Referred Address [address],[address], Referred Provider Specialty Cardiology Referral Priority Routine Medications Medication SIG (Take, Route, Frequency, Duration) Notes Start Date End Date Status DULoxetine HCl 30 MG Capsule Delayed Release Particles 1 capsule daily for 1 week then increase to 2 capsules daily Orally Once a day; Duration: 30 day(s) Activ e Immunizations Vaccine Route Administration Date Status Comme nts Influenza (whole), CPT 85625 Inactive Unknown 02/28/2019 Administered Influenza (whole), CPT 75757 Inactive Unknown 06/17/2019 Administered Social History Tobacco [...] Status W/U Status Risk Notes Problem visit (775640377) Encounter for routine follow-up (Z39.2) Active confirmed Problem Insomnia (056315592) Insomnia (G47.00) Active confirmed Problem Recurrent major depression (53750879) Depression, major, recurrent (F33.9) Active confirmed Problem Generalized anxiety disorder (29162577) KIRSTEN (generalized anxiety disorder) (F41.1) Active confirmed Problem Depression (570200007) Other depression (F32.89) Active confirmed Problem Psychosis (91028315) Psychosis (F29) Active confirmed Problem Gastroesophageal reflux disease (742329821) Gastroesophageal reflux disease, unspecified whether esophagitis present (K21.9) Active confirmed Encounters Encounter Location Date Provider Diagnosis [facility] [address] [place] [address] 08/19/2025 Marce Malave Plan Of Treatment Next Appt Details Provider Name:Alondra zavala, 09/24/2025 01:30:00 PM, [address], [place], [address], Insurance Providers Payer Name Payer Address Payer Phone Subscriber Number Group Number Insured Name Patient Relationship to Insured Coverage Start Date Coverage End Date [place] Medicaid [address] [place] [phone] [id number] Janet Fisher Self - patient is the insured Medical (General) History Medical History History ICD Code Asthma Closed fracture of distal phalanx of fin calli Irregular periods Anemia Anxiety Chronic depression Irritable colon anxiety Surgical History Surgery Date(Month/Year) Cholecystectomy 2015 section 2018 Bilateral tubal ligation 09/25/2019 Hospitalization History Reason Date(Month/Year) see surgerys
== END 2025-08-21 18:08 | disposition home or self-care (01) ==
PROVIDERS: Emergency Provider Emergency Medicine
DX: F41.9 Anxiety disorder, unspecified (principal)
CPT/HCPCS: 36415; 80048; 81001; 81025; 84443; 85025; 85378; 99283; J9999; Q0162

== ENCOUNTER 2025-08-28 06:56 | Emergency (ER) | payer MEDICAID, SELFPAY ==
--- OUTSIDE RECORDS SUMMARY | 2024-05-29 05:00 | XMS_ITS ---
Author Organization [facility] Accounts Recei vable Address [address] [place] [address] Care Team Providers Care It Compliance Analyst Name Role Phone Micah aRgsdale Unavailable [phone] Lopez Lee Unavailable REASON FOR VISIT ape Social History Sex Assigned At : Social History Observation Description Sex Assigned At Female Encounters Encounter Location Date Provider Diagnosis [address] [address] 05/29/2024 Lopez Lee Plan Of Treatment No Information Progress Notes * Janet JOHNSONDOB:1994 (30 yo F)Acc No.[id number]:05/29/2024 Patient: Mikki Thorntonney Provider: Lissy Serrato RDH :1995 A ge:29 Y S ex:Female Date:05/29/2024 Address:[address] [place] [address], [facility] Patient's Default Facility:B [facility] Subjective: * Chief Complaints: * A pe Billing Information: * Procedure Codes: * Electronic signature of Quinn Lee RDH on 08/28/2025 at 07:00 AM DERRICK MAN Sign off status: Pending * Provider: Lissy Serrato RDH Date: 0 05/29/2024 Generated for Karrii ng/Faaminahg/eTransmitting on: 1 10/29/2024 07:00 AM DERRICK MAN
--- OUTSIDE RECORDS SUMMARY | 2025-01-10 02:00 | XMS_ITS ---
Author Organization [facility] Accounts Recei vable Address [address] [place] [address] Care Team Providers Care Science Consultant Name Role Phone Micah Ragsdale Unavailable [phone] Spring Skinner Unavailable [phone] REASON FOR VISIT comp, xr, reeval tx.plp Social History Sex Assigned At : Social History Observation Description Sex Assigned At Female Encounters Encounter Location Date Provider Diagnosis [address] [address] 01/10/2025 Spring Skinner Plan Of Treatment No Information Progress Notes * Janet JOHNSONDOB:1994 (30 yo F)Acc No.[id number]:01/10/2025 Progress Note Patient: Mikki Thorntonney Provider: Kostas Skinner RDH :1995 A ge:29 Y S ex:Female Date:01/10/2025 Address:[address] [place] [address], [facility] Patient's Default Facility:[facility] Subjective: * Chief Complaints: * C omp, xr, reeval tx.plp * Electronic signature of Spring Skinner RDH on 08/28/2025 at 07:00 AM SCOREBOARD OPERATOR Sign off status: Pending * Provider: Kostas Skinner RDH Date: 0 01/10/2025 Generated for Printi ng/Faxing/eTransmitting on: 1 10/29/2024 07:00 AM SCOREBOARD OPERATOR
--- OUTSIDE RECORDS SUMMARY | 2025-06-13 02:00 | XMS_ITS ---
Author Organization [facility] Accounts Recei vable Address [address] [place] [address] Care Team Providers Care Client Server Developer Name Role Phone Micah Ragsdale Unavailable [phone] ArenCarrie lopez Unavailable [phone] REASON FOR VISIT APE, BWX, PEX gn Social History Sex Assigned At : Social History Observation Description Sex Assigned At Female Encounters Encounter Location Date Provider Diagnosis [address] [address] 06/13/2025 Carrie Younger Plan Of Treatment No Information Progress Notes * Janet JOHNSONDOB:1994 (30 yo F)Acc No.[id number]:06/13/2025 Patient: Andrews Janet almonte Provider: Andrews Younger [facility] :1995 A ge:30 Y S ex:Female Date:06/13/2025 Address:[address] [place] [address] [address], [facility], [place] Patient's Default Facility:B [facility] Subjective: * Chief Complaints: * A PE, BWX, PEX gn * Electronic signature of [facility] evita Younger on 08/28/2025 at 07:00 AM HEAD OF ETHICS AND COMPLIANCE Sign off status: Pending * Provider: Andrews Younger [facility] Date: Generated for Printi ng/Faxing/eTransmitting on: 10/29/2024 07:00 AM HEAD OF ETHICS AND COMPLIANCE
[2025-08-28 06:58] VITALS: BP 114/81; PULSE 100; RESP 18; TEMP 36.4; O2SAT 98
--- OUTSIDE RECORDS SUMMARY | 2025-08-28 07:00 | XMS_ITS | Patient Health Record ---
Author Organization [facility] Accounts Recei vable Address [address] [place] [address] Care Team Providers Care Calibration Specialist Name Role Phone Micah Ragsdale Unavailable [phone] [employer] Unavailable [phone] Carrie Younger Unavailable [phone] Allergies Allergen (clinical drug ingredient) Drug/Non Drug [...] cavity (V76.42) Active confirmed Problem Toothache (finding) (78119682) Tooth pain (K08.89) Active confirmed Problem At high risk for dental caries (finding) (698659291) Risk for dental caries, high (Z91.843) Active confirmed Vital Signs Heart Rate 74 BPM 04/11/2025 Blood pressure diastolic 69 mm Hg 04/11/2025 Height 65 in 04/11/2025 Blood pressure systolic 107 mm Hg 04/11/2025 Weight 171.6 lbs 04/11/2025 BMI 28.55 kg/m2 04/11/2025 Encounters Encounter Location Date Provider Diagnosis [address] [address] 03/13/2025 Carrie Aren Tooth pain K08.[address] [address] 04/11/2025 Abu Hasme Assessments Encounter Date Diagnosis [...] Start Date Coverage End Date Medic[employer] d-Denta l [employer] [address] [place] [address] [phone] [id number] Janet Johnson Self - patient is the insured Medical (General) History Medical History History ICD Code Allergies ADD\ ADHD astma Anxeity and Depression Surgical History Surgery Date(Month/Year) C section Tub tied Gallbladder Hospitalization History Reason Date(Month/Year) see above
--- OUTSIDE RECORDS SUMMARY | 2025-08-28 07:01 | XMS_ITS | Patient Health Record ---
Author Organization [facility] Address [address] [place] [address] Care Team Providers Care Supervisor Printing Shop Name Role Phone Arben Sigala MD Primary Care Provider Marce Zuñiga Unavailable [phone] Allergies Allergen (clinical drug ingredient) Drug/Non Drug [...] Provider Speciality Family Med icine Referred Organization [facility] Referred Provider Alondra Singer Referred Address [address],[address], Referred Provider Specialty Cardiology Referral Priority Routine Medications Medication SIG (Take, Route, Frequency, Duration) Notes Start Date End Date Status DULoxetine HCl 30 MG Capsule Delayed Release Particles 1 capsule daily for 1 week then increase to 2 capsules daily Orally Once a day; Duration: 30 day(s) Activ e Immunizations Vaccine Route Administration Date Status Comme nts Influenza (whole), CPT 41530 Inactive Unknown 02/28/2019 Administered Influenza (whole), CPT 75357 Inactive Unknown 06/17/2019 Administered Social History Tobacco [...] Status W/U Status Risk Notes Problem visit (359268613) Encounter for routine follow-up (Z39.2) Active confirmed Problem Insomnia (360569644) Insomnia (G47.00) Active confirmed Problem Recurrent major depression (71512477) Depression, major, recurrent (F33.9) Active confirmed Problem Generalized anxiety disorder (62321292) KIRSTEN (generalized anxiety disorder) (F41.1) Active confirmed Problem Depression (094038034) Other depression (F32.89) Active confirmed Problem Psychosis (59647725) Psychosis (F29) Active confirmed Problem Gastroesophageal reflux disease (974103809) Gastroesophageal reflux disease, unspecified whether esophagitis present (K21.9) Active confirmed Encounters Encounter Location Date Provider Diagnosis [facility] [address] [place], [place] [address] 08/19/2025 Marce Malave Plan Of Treatment Next Appt Details Provider Name:Marce silva, 09/24/2025 11:00:00 AM, [address], [place], [address], Provider Name:Alondra zavala, 09/24/2025 01:30:00 PM, [address], [place], [address], Insurance Providers Payer Name Payer Address Payer Phone Subscriber Number Group Number Insured Name Patient Relationship to Insured Coverage Start Date Coverage End Date [place] Medicaid [address] [place] [phone] [id number] Janet Fisher Self - patient is the insured Medical (General) History Medical History History ICD Code Asthma Closed fracture of distal phalanx of fin calli Irregular periods Anemia Anxiety Chronic depression Irritable colon anxiety Surgical History Surgery Date(Month/Year) Bilateral tubal ligation 09/25/2019 section 2018 Cholecystectomy 2015 Hospitalization History Reason Date(Month/Year) see surgerys
[2025-08-28] MEDS: LORazepam 2 mg/mL INJ 1 mL IVP (07:22)
[2025-08-28 07:42] VITALS: BP 105/69; PULSE 88; RESP 16; O2SAT 98
--- NOTE | 2025-08-28 07:59 | W.ED.ANXIETY ---
HPI - Anxiety General: Chief Complaint: Anxiety Stated Complaint: N/V, ANXIETY Time Seen by Provider: 08/28/25 06:57 History of Present Illness: 30-year-old female presents to the emergency room with anxiety issues nausea and occasional vomiting. Patient has had multiple visits to the emergency room with similar symptoms she had numbness and tingling bilaterally her prior to arrival suspect she had some hyperventilation. She recently was started on Cymbalta is concerned about side effects. Associated symptoms: Deny chest pain, chills or fever(s) Related Data Home Medications ?Medication ?Instructions ?Recorded ?Confirmed ascorbic acid (vitamin C) 500 mg 250 mg PO DAILY 08/04/24 08/10/25 tablet (Vitamin C) vmjjbqer-feo-mboa-FA-Ca carb-vit K 1 tab PO DAILY 08/04/24 08/10/25 18 mg iron-400 mcg-500 mg tablet mecobalamin (vitamin B12) 1,000 1,000 mcg PO DAILY 05/13/25 08/10/25 mcg chewable tablet (B12 Active) lorazepam 1 mg tablet 1 mg PO BEDTIME PRN Anxiety 08/07/25 08/10/25 pantoprazole 40 mg tablet,delayed 40 mg PO QAM 08/07/25 08/10/25 release trazodone 50 mg tablet See Rx Instructions .Route .COMPLEX 08/07/25 08/10/25 diphenhydramine HCl 25 mg capsule 25 mg PO TID PRN Anxiety 08/10/25 08/10/25 (Benadryl) lamotrigine 25 mg tablet (Lamictal) 25 mg PO QAM 08/10/25 08/10/25 olanzapine 2.5 mg tablet (Zyprexa) 2.5 mg PO QID PRN anxiety 08/10/25 08/10/25 Previous Rx's ?Medication ?Instructions ?Recorded mirtazapine 15 mg tablet 15 mg PO DAILY #30 tabs 08/21/25 Allergies Allergy/AdvReac Type Severity Reaction Status Date / Time escitalopram (From Lexapro) Allergy ADR-Seizure Verified 08/10/25 08:58 sertraline (From Zoloft) Allergy ADR-Seizure Verified 08/10/25 08:58 ketorolac (From Toradol) AdvReac ADR-Anxiety Verified 08/10/25 08:58 Review of Systems Const: Denies: fever(s) or chills Card: Denies: chest pain Resp: Denies: dyspnea GI: Denies: abdominal pain : Denies: dysuria, urinary frequency or urinary urgency Musc: Denies: neck pain or back pain Skin/Breast: Denies: rash PFSH ED PFSH: Medical History History of anemia Acid reflux Depression Anxiety IBS (irritable bowel syndrome) Insomnia Asthma Anemia Surgical History History of bilateral tubal ligation History of History of cholecystectomy Family History Grandmother Cancer Maternal-brain Mother Cancer breast/cervical Family/Other Cancer Maternal aunt-breast/cervical Family/Other Cancer, Onset Age: 4 Maternal glaqi-veftteci-uhmccb away d/t this Brother Psychiatric illness Sister Psychiatric illness Sister Psychiatric illness Other Bleeding disorder Diabetes Hypertension Lung disease Stroke Denies family history of CAD (coronary artery disease) Clotting disorder Dementia Hyperlipidemia Chronic kidney disease (CKD) Anesthesia complication Social History Smoking and tobacco/nicotine status: never used tobacco/nicotine Alcohol intake: never Substance/Drug Use: never Lives independently: Yes Marital status: Number of children: 5 Current occupational status: disabled Rosalind/Pentecostalism: Uatsdin Special rosalind needs: No Agree to transfusion: Yes Physical Exam Const: COMMON NORMALS: no acute distress GENERAL APPEARANCE: cooperative and comfortable ORIENTATION/CONSCIOUSNESS: Yes awake, Yes oriented to person, Yes oriented to place and Yes oriented to time HENMT: COMMON NORMALS: normocephalic, atraumatic and hearing grossly normal bilaterally HEAD & SCALP: normocephalic and atraumatic Resp: COMMON NORMALS: normal respiratory effort, No retractions, No use of accessory muscles and clear to auscultation bilaterally AUSCULTATION: clear to auscultation bilaterally Cardio: COMMON NORMALS: regular rate, regular rhythm and No murmurs present (Cardio) RATE: regular rate RHYTHM: regular rhythm GI: COMMON NORMALS: Soft to palpation and No hepatosplenomegaly present AUSCULTATION: Yes normoactive bowel sounds PALPATION: Yes Soft to palpation, No Tenderness to palpation present (GI), No Guarding due to palpation present (GI) and Yes No hepatosplenomegaly present Extremity: COMMON NORMALS: normal to inspection, capillary refill normal, no clubbing, cyanosis or edema, no calf tenderness and no pedal edema Neuro: SENSORIUM/ORIENTATION: Yes oriented to person, Yes oriented to place and Yes oriented to time Skin: COMMON NORMALS: no rashes or lesions noted GENERAL SKIN EXAM: no rashes or lesions noted Course Vital Signs: Vital signs: Vital Signs Temperature 97.6 F 08/28/25 06:58 Pulse Rate 87 08/28/25 09:14 Respiratory Rate 16 08/28/25 07:42 Blood Pressure 105/69 08/28/25 07:42 Pulse Oximetry 95 08/28/25 09:14 MDM - Anxiety Medical Decision Making Medical decision making Social determinants: Moderate social support I reviewed the patient's medical record. I reviewed the patient's current home meds. Alternate historians: None Differential diagnosis: Hyperventilation, anxiety, panic attack Lab Review: None Imaging: None Assessment of risk Level of risk: Low Hospitalization considerations: No indication for hospitalization at this time Reexamination: Improved with medications given Assessment and plan: Discharge patient home encouraged her to follow-up with [facility] think she needs more thorough evaluation for management of her anxiety issues. All of her symptoms have resolved at this time. Did discuss with her if she has further episodes that following up with crisis stabilization unit may be helpful. At this time patient is already on a rather low dose of Cymbalta I recommend that she continue it is likely that the side effects will improve the longer she is on it. She certainly could be titrated to a higher dose over time although this may be need to be done slowly. Discussed this with her and the importance of having her do close follow-up with her primary care provider and/or engaging with a provider at [facility]. No radiology studies performed this visit Discharge Plan Discharge Patient Disposition: Home Clinical Impression: Anxiety, Medication side effects Condition: Stable Prescriptions: No Action mecobalamin (vitamin B12) [B12 Active] 1,000 mcg tablet,chewable 1,000 mcg PO DAILY diphenhydramine HCl [Benadryl] 25 mg Capsule 25 mg PO TID PRN (Reason: Anxiety) olanzapine [Zyprexa] 2.5 mg tablet 2.5 mg PO QID PRN (Reason: anxiety) lamotrigine [Lamictal] 25 mg tablet 25 mg PO QAM mirtazapine 15 mg tablet 15 mg PO DAILY Qty: 30 0RF ascorbic acid (vitamin C) [Vitamin C] 500 mg Tablet 250 mg PO DAILY Women's Multivitamin 18 mg iron-400 mcg-500 mg Tablet 1 tab PO DAILY trazodone 50 mg tablet See Rx Instructions .ROUTE .COMPLEX Rx Instructions: TAKE 1/2 TABLET BY MOUTH IN THE MORNING AND TAKE 1 TABLET BY MOUTH AT NIGHT pantoprazole 40 mg tablet,delayed release (DR/EC) 40 mg PO QAM lorazepam 1 mg tablet 1 mg PO BEDTIME PRN (Reason: Anxiety) Discharge Orders: Discharge ED (Routine); Ordered 08/28/25 Ordered By: Cornelius Henry Referrals: Arben Sigala MD [Primary Care Provider, Family Practice] Patient Instructions: Opioid Safety, Pain Management, Patient Portal & Kelly Instructions Activity Restrictions/Additional Instructions: Thank you for choosing [facility] for your healthcare needs today. It is very important that you follow up as instructed or that you return to the Emergency Department should you have concerns or if your condition changes or worsens in any way. Emergency department visits are focused on emergent conditions, in some cases you may require further evaluation on an outpatient basis. You are seen in the emergency room with an anxiety attack. You had recently been started on Cymbalta it is possible that this can contribute to symptoms. Typically with the medication such as Cymbalta the longer you are on it the fever the side effects get. This generally would not be considered to represent an allergy. Recommend that you follow-up with your physician who prescribed the Cymbalta for further directions regarding this medication. (Please note that included in your discharge packet is information concerning opioid safety and pain management. This information is given to all patients were discharged from the ER regardless of their discharge diagnosis or the medicines they usually take or are prescribed.) Print Language: Andorran Coding Level of Care Code ED Web Architect for Zach Moe
[2025-08-28 09:14] VITALS: PULSE 87; O2SAT 95
== END 2025-08-28 09:15 | disposition home or self-care (01) ==
PROVIDERS: Emergency Provider Family Medicine
DX: F41.9 Anxiety disorder, unspecified (principal); T43.215A Adverse effect of selective serotonin and norepinephrine reuptake inhibitors, initial encounter; X58.XXXA Exposure to other specified factors, initial encounter
CPT/HCPCS: 96374; 99284; J2060

== ENCOUNTER 2025-09-09 06:45 | Emergency (ER) | payer MEDICAID, SELFPAY ==
--- OUTSIDE RECORDS SUMMARY | 2024-05-29 05:00 | XMS_ITS ---
Author Organization [facility] Accounts Recei vable Address [address] [place] [address] Care Team Providers Care Email Marketing Manager Name Role Phone Micah Ragsdale Unavailable [phone] Lopez Lee Unavailable REASON FOR VISIT ape Social History Sex Assigned At : Social History Observation Description Sex Assigned At Female Encounters Encounter Location Date Provider Diagnosis [address] [address] 05/29/2024 Lopez Lee Plan Of Treatment No Information Progress Notes * Janet JOHNSONDOB:1994 (30 yo F)Acc No.[id number]:05/29/2024 Patient: Mikki Thorntonney Provider: Lissy Serrato RDH :1995 A ge:29 Y S ex:Female Date:05/29/2024 Address:[address] [place] [address], [facility] [place] Patient's Default Facility:B [facility] Subjective: * Chief Complaints: * A pe Billing Information: * Procedure Codes: * Electronic signature of Quinn Lee RDH on 09/09/2025 at 06:54 AM MANAGER OF DATA Sign off status: Pending * Provider: Lissy Serrato RDH Date: 0 05/29/2024 Generated for Karrii ng/Faaminahg/eTransmitting on: 1 06:54 AM MANAGER OF DATA
--- OUTSIDE RECORDS SUMMARY | 2025-01-10 02:00 | XMS_ITS ---
Author Organization [facility] Accounts Recei vable Address [address] [place] [address] Care Team Providers Care Hand Quilter Name Role Phone Micah Ragsdale Unavailable [phone] Brody Spring Unavailable [phone] REASON FOR VISIT comp, xr, reeval tx.plp Social History Sex Assigned At : Social History Observation Description Sex Assigned At Female Encounters Encounter Location Date Provider Diagnosis [address] [address] 01/10/2025 Spring Skinner Plan Of Treatment No Information Progress Notes * Janet JOHNSONDOB:1994 (30 yo F)Acc No.[id number]:01/10/2025 Progress Note Patient: Mikki Thorntonney Provider: Kostas Skinner RDH :1995 A ge:29 Y S ex:Female Date:01/10/2025 Address:[address] [place] [address], [facility], [id number] Patient's Default Facility:B [facility] Subjective: * Chief Complaints: * C omp, xr, reeval tx.plp * Electronic signature of Spring Skinner RDH on 09/09/2025 at 06:54 AM TELLERS SUPERVISOR Sign off status: Pending * Provider: Kostas Skinner RDH Date: 0 01/10/2025 Generated for Printi ng/Faxing/eTransmitting on: 1 06:54 AM TELLERS SUPERVISOR
--- OUTSIDE RECORDS SUMMARY | 2025-06-13 02:00 | XMS_ITS ---
Author Organization [facility] Accounts Recei vable Address [address] [place] [address] Care Team Providers Care Service Station Cashier Name Role Phone Micah Ragsdale Unavailable [phone] ArenCarrie lopez Unavailable [phone] REASON FOR VISIT APE, BWX, PEX gn Social History Sex Assigned At : Social History Observation Description Sex Assigned At Female Encounters Encounter Location Date Provider Diagnosis [address] [address] 06/13/2025 Carrie Younger Plan Of Treatment No Information Progress Notes * Janet JOHNSONDOB:1994 (30 yo F)Acc No.[id number]:06/13/2025 Patient: Andrews Janet almonte Provider: Andrews Younger [facility] :1995 A ge:30 Y S ex:Female Date:06/13/2025 Address:[address] [place] [address], [facility], [id number] Patient's Default Facility:B [facility] Subjective: * Chief Complaints: * A PE, BWX, PEX gn * Electronic signature of [facility] evita Younger on 09/09/2025 at 06:54 AM ESCORT SERVICE ATTENDANT Sign off status: Pending * Provider: Andrews Younger [facility] Date: Generated for Printi ng/Faxing/eTransmitting on: 06:54 AM ESCORT SERVICE ATTENDANT
--- OUTSIDE RECORDS SUMMARY | 2025-09-09 06:54 | XMS_ITS | Patient Health Record ---
Author Organization [facility] Accounts Recei vable Address [address] [place] [address] Care Team Providers Care Building Construction Teacher Name Role Phone Micah Ragsdale Unavailable [phone] Sk[employer] Unavailable [phone] Carrie Younger Unavailable [phone] Allergies Allergen (clinical drug ingredient) Drug/Non Drug [...] cavity (V76.42) Active confirmed Problem Toothache (finding) (02262770) Tooth pain (K08.89) Active confirmed Problem At high risk for dental caries (finding) (325028699) Risk for dental caries, high (Z91.843) Active confirmed Vital Signs Heart Rate 74 BPM 04/11/2025 Blood pressure diastolic 69 mm Hg 04/11/2025 Height 65 in 04/11/2025 Blood pressure systolic 107 mm Hg 04/11/2025 Weight 171.6 lbs 04/11/2025 BMI 28.55 kg/m2 04/11/2025 Encounters Encounter Location Date Provider Diagnosis [address] [address] 03/13/2025 Carrie Aren Tooth pain K08.[address] [address] 04/11/2025 Abu Hasme Assessments Encounter Date Diagnosis [...] Date Coverage End Date Medicai d-Denta l [employer] [address] [place] [address] [phone] [id number] Janet Johnson Self - patient is the insured Medical (General) History Medical History History ICD Code Allergies ADD\ ADHD astma Anxeity and Depression Surgical History Surgery Date(Month/Year) C section Tub tied Gallbladder Hospitalization History Reason Date(Month/Year) see above
--- OUTSIDE RECORDS SUMMARY | 2025-09-09 06:55 | XMS_ITS | Patient Health Record ---
Author Organization [facility] Address [address] [place] [address] Care Team Providers Care Friction Welding Machine Operator Name Role Phone Arben Sigala MD Primary Care Provider Marce Zuñiga Unavailable [phone] Allergies Allergen (clinical drug ingredient) Drug/Non Drug [...] Provider Speciality Family Med icine Referred Organization [facility] Referred Provider Alondra Singer Referred Address [address],[address], Referred Provider Specialty Cardiology Referral Priority Routine Medications Medication SIG (Take, Route, Frequency, Duration) Notes Start Date End Date Status DULoxetine HCl 30 MG Capsule Delayed Release Particles 1 capsule daily for 1 week then increase to 2 capsules daily Orally Once a day; Duration: 30 day(s) Activ e Immunizations Vaccine Route Administration Date Status Comme nts Influenza (whole), CPT 27511 Inactive Unknown 02/28/2019 Administered Influenza (whole), CPT 43698 Inactive Unknown 06/17/2019 Administered Social History Tobacco [...] Status W/U Status Risk Notes Problem visit (673977423) Encounter for routine follow-up (Z39.2) Active confirmed Problem Insomnia (163454125) Insomnia (G47.00) Active confirmed Problem Recurrent major depression (59661430) Depression, major, recurrent (F33.9) Active confirmed Problem Generalized anxiety disorder (26515020) KIRSTEN (generalized anxiety disorder) (F41.1) Active confirmed Problem Depression (000150611) Other depression (F32.89) Active confirmed Problem Psychosis (53415791) Psychosis (F29) Active confirmed Problem Gastroesophageal reflux disease (418811161) Gastroesophageal reflux disease, unspecified whether esophagitis present (K21.9) Active confirmed Encounters Encounter Location Date Provider Diagnosis [facility] [address] [place], [place] [address] 08/19/2025 Marce Malave Plan Of Treatment Next Appt Details Provider Name:Marce silva, 09/24/2025 11:00:00 AM, [address], [place], [address], Provider Name:Alondra zavala, 09/24/2025 01:30:00 PM, [address], [place], [address], Insurance Providers Payer Name Payer Address Payer Phone Subscriber Number Group Number Insured Name Patient Relationship to Insured Coverage Start Date Coverage End Date [place] Medicaid [address] [place] [phone] [id number] Janet Fisher Self - patient is the insured Medical (General) History Medical History History ICD Code Asthma Closed fracture of distal phalanx of fin calli Irregular periods Anemia Anxiety Chronic depression Irritable colon anxiety Surgical History Surgery Date(Month/Year) Bilateral tubal ligation 09/25/2019 section 2018 Cholecystectomy 2015 Hospitalization History Reason Date(Month/Year) see surgerys
[2025-09-09 07:15] VITALS: BP 119/71; PULSE 91; RESP 18; TEMP 36.7; O2SAT 99
--- NOTE | 2025-09-09 07:20 | W.ED.HA ---
HPI - Headache General: Chief Complaint: Headache Stated Complaint: headache X3days Time Seen by Provider: 09/09/25 07:16 Source: patient Mode of arrival: ambulatory Limitations: no limitations History of Present Illness: 30 yo female that states she has had a headache over the last 3 days. She states it has been intermittent innature and relieved with tylenol. Denies being worse headache of her life. headache is currently a 6/10. Denies any neck pain or fevers. Has had some body aches. Denies cough. denies vomitng. Related Data Home Medications ?Medication ?Instructions ?Recorded ?Confirmed ascorbic acid (vitamin C) 500 mg 250 mg PO DAILY 08/04/24 08/10/25 tablet (Vitamin C) kpnflacw-xig-aemv-FA-Ca carb-vit K 1 tab PO DAILY 08/04/24 08/10/25 18 mg iron-400 mcg-500 mg tablet mecobalamin (vitamin B12) 1,000 1,000 mcg PO DAILY 05/13/25 08/10/25 mcg chewable tablet (B12 Active) lorazepam 1 mg tablet 1 mg PO BEDTIME PRN Anxiety 08/07/25 08/10/25 pantoprazole 40 mg tablet,delayed 40 mg PO QAM 08/07/25 08/10/25 release trazodone 50 mg tablet See Rx Instructions .Route .COMPLEX 08/07/25 08/10/25 diphenhydramine HCl 25 mg capsule 25 mg PO TID PRN Anxiety 08/10/25 08/10/25 (Benadryl) lamotrigine 25 mg tablet (Lamictal) 25 mg PO QAM 08/10/25 08/10/25 olanzapine 2.5 mg tablet (Zyprexa) 2.5 mg PO QID PRN anxiety 08/10/25 08/10/25 Previous Rx's ?Medication ?Instructions ?Recorded mirtazapine 15 mg tablet 15 mg PO DAILY #30 tabs 08/21/25 Allergies Allergy/AdvReac Type Severity Reaction Status Date / Time escitalopram (From Lexapro) Allergy ADR-Seizure Verified 08/10/25 08:58 sertraline (From Zoloft) Allergy ADR-Seizure Verified 08/10/25 08:58 ketorolac (From Toradol) AdvReac ADR-Anxiety Verified 08/10/25 08:58 Review of Systems Neuro: Reports: headache(s) PFSH ED PFSH: Medical History History of anemia Acid reflux Depression Anxiety IBS (irritable bowel syndrome) Insomnia Asthma Anemia Surgical History History of bilateral tubal ligation History of History of cholecystectomy Family History Grandmother Cancer Maternal-brain Mother Cancer breast/cervical Family/Other Cancer Maternal aunt-breast/cervical Family/Other Cancer, Onset Age: 4 Maternal fiioe-kavimvoa-ciaevy away d/t this Brother Psychiatric illness Sister Psychiatric illness Sister Psychiatric illness Other Bleeding disorder Diabetes Hypertension Lung disease Stroke Denies family history of CAD (coronary artery disease) Clotting disorder Dementia Hyperlipidemia Chronic kidney disease (CKD) Anesthesia complication Social History Smoking and tobacco/nicotine status: never used tobacco/nicotine Alcohol intake: never Substance/Drug Use: never Lives independently: Yes Marital status: Number of children: 5 Current occupational status: disabled Rosalind/Jain: Orthodoxy Special rosalind needs: No Agree to transfusion: Yes Physical Exam Const: COMMON NORMALS: no acute distress, patient oriented x3 and healthy appearing HENMT: COMMON NORMALS: normocephalic and atraumatic HEAD & SCALP: normocephalic and atraumatic Eye: COMMON NORMALS: Equal, round and reactive pupils present and EOMs intact bilaterally PUPIL: Yes Equal, round and reactive pupils present Neck/C-Spine: COMMON NORMALS: full ROM and supple Chest: COMMONS NORMALS: normal inspection of the chest Resp: COMMON NORMALS: normal respiratory effort Cardio: COMMON NORMALS: regular rate, regular rhythm and No murmurs present (Cardio) RATE: regular rate RHYTHM: regular rhythm Extremity: COMMON NORMALS: normal to inspection and full ROM Neuro: COMMON NORMALS: patient oriented x3, moves all extremities and no focal motor deficits Psych: COMMON NORMALS: mental status grossly normal, Normal thought process present and cooperative THOUGHT PROCESS: Normal thought process present Skin: COMMON NORMALS: no rashes or lesions noted and no wounds GENERAL SKIN EXAM: no rashes or lesions noted Course Vital Signs: Vital signs: Vital Signs Temperature 98.1 F 09/09/25 07:15 Pulse Rate 89 09/09/25 07:55 Respiratory Rate 18 09/09/25 07:15 Blood Pressure 119/71 09/09/25 07:55 Pulse Oximetry 98 09/09/25 07:55 Oxygen Delivery Me thod Room Air 09/09/25 07:15 MDM - Headache Medical Decision Making 30-year-old female presents here with headaches been going on for 3 days differential includes intracranial hemorrhage meningitis, tension headache. Patient is well-appearing here afebrile no neck stiffness she has no signs of meningitis her headaches mild not the worst headache of her life or thunderclap no signs of subarachnoid hemorrhage. This is likely tension headache did give her Reglan Benadryl she is stable for discharge she is follow-up her PCP and return if worsening she understands agrees to plan Medical Records I reviewed the patient's medical records. No radiology studies performed this visit Discharge Plan Discharge Patient Disposition: Home Clinical Impression: Headache Condition: Stable Prescriptions: No Action mecobalamin (vitamin B12) [B12 Active] 1,000 mcg tablet,chewable 1,000 mcg PO DAILY diphenhydramine HCl [Benadryl] 25 mg Capsule 25 mg PO TID PRN (Reason: Anxiety) olanzapine [Zyprexa] 2.5 mg tablet 2.5 mg PO QID PRN (Reason: anxiety) lamotrigine [Lamictal] 25 mg tablet 25 mg PO QAM mirtazapine 15 mg tablet 15 mg PO DAILY Qty: 30 0RF ascorbic acid (vitamin C) [Vitamin C] 500 mg Tablet 250 mg PO DAILY Women's Multivitamin 18 mg iron-400 mcg-500 mg Tablet 1 tab PO DAILY trazodone 50 mg tablet See Rx Instructions .ROUTE .COMPLEX Rx Instructions: TAKE 1/2 TABLET BY MOUTH IN THE MORNING AND TAKE 1 TABLET BY MOUTH AT NIGHT pantoprazole 40 mg tablet,delayed release (DR/EC) 40 mg PO QAM lorazepam 1 mg tablet 1 mg PO BEDTIME PRN (Reason: Anxiety) Discharge Orders: Discharge ED (Routine); Ordered 09/09/25 Ordered By: Linda Ulloa Referrals: Arben Sigala MD [Primary Care Provider, Family Practice] - 4-7 days Discharge Diet: Advance as tolerated Discharge Activity: Resume usual activity Patient Instructions: General Headache (ED) Print Language: Liberian Coding Level of Care Code ED Library Science Instructor for Zach Moe
[2025-09-09] MEDS: metoclopramide 5 mg/mL SDV 2 mL 10 MG IM (07:37)
[2025-09-09 07:55] VITALS: BP 119/71; PULSE 89; O2SAT 98
[2025-09-09 08:40] LABS: Respiratory Syncytial Virus Ce NEGATIVE (Negative); SARS-CoV-2 PCR NEGATIVE (Negative)
== END 2025-09-09 07:57 | disposition home or self-care (01) ==
PROVIDERS: Emergency Provider Emergency Medicine
DX: R51.9 Headache, unspecified (principal)
CPT/HCPCS: 87637; 96372; 99284; J2765; J9999

== ENCOUNTER 2025-09-10 05:21 | Emergency (ER) | payer MEDICAID, SELFPAY ==
--- OUTSIDE RECORDS SUMMARY | 2024-05-29 05:00 | XMS_ITS ---
Author Organization [facility] Accounts Recei vable Address [address] [place] [address] Care Team Providers Care Mechanical Lead Name Role Phone Micah Ragsdale Unavailable [phone] Lopez Lee Unavailable REASON FOR VISIT ape Social History Sex Assigned At : Social History Observation Description Sex Assigned At Female Encounters Encounter Location Date Provider Diagnosis [address] [address] 05/29/2024 Lopez Lee Plan Of Treatment No Information Progress Notes * Janet JOHNSONDOB:1994 (30 yo F)Acc No.[id number]:05/29/2024 Patient: Mikki Thorntonney Provider: Lissy Serrato RDH :1995 A ge:29 Y S ex:Female Date:05/29/2024 Address:[address] [place] [address], [facility], [place] Patient's Default Facility:B [facility] Subjective: * Chief Complaints: * A pe Billing Information: * Procedure Codes: * Electronic signature of Quinn Lee RDH on 09/10/2025 at 05:27 AM DECORATING INSTRUCTOR Sign off status: Pending * Provider: Lissy Serrato RDH Date: 0 05/29/2024 Generated for Karrii ng/Faaminahg/eTransmitting on: 1 05:27 AM DECORATING INSTRUCTOR
--- OUTSIDE RECORDS SUMMARY | 2025-01-10 02:00 | XMS_ITS ---
Author Organization [facility] Accounts Recei vable Address [address] [place] [address] Care Team Providers Care Top Spotter Name Role Phone Micah Ragsdale Unavailable [phone] Brody Spring Unavailable [phone] REASON FOR VISIT comp, xr, reeval tx.plp Social History Sex Assigned At : Social History Observation Description Sex Assigned At Female Encounters Encounter Location Date Provider Diagnosis [address] [address] 01/10/2025 Spring Skinner Plan Of Treatment No Information Progress Notes * Janet JOHNSONDOB:1994 (30 yo F)Acc No.[id number]:01/10/2025 Progress Note Patient: Mikki Thorntonney Provider: Kostas Skinner RDH :1995 A ge:29 Y S ex:Female Date:01/10/2025 Address:[address] [place] [address] [address], [facility], [place] Patient's Default Facility:B [facility] Subjective: * Chief Complaints: * C omp, xr, reeval tx.plp * Electronic signature of Spring Skinner RDH on 09/10/2025 at 05:27 AM COMMUNICATIONS DESIGNER Sign off status: Pending * Provider: Kostas Skinner RDH Date: 0 01/10/2025 Generated for Printi ng/Faxing/eTransmitting on: 1 05:27 AM COMMUNICATIONS DESIGNER
--- OUTSIDE RECORDS SUMMARY | 2025-06-13 02:00 | XMS_ITS ---
Author Organization [facility] Accounts Recei vable Address [address] [place] [address] Care Team Providers Care Geotechnician Name Role Phone Micah Ragsdale Unavailable [phone] ArenCarrie lopez Unavailable [phone] REASON FOR VISIT APE, BWX, PEX gn Social History Sex Assigned At : Social History Observation Description Sex Assigned At Female Encounters Encounter Location Date Provider Diagnosis [address] [address] 06/13/2025 Carrie Younger Plan Of Treatment No Information Progress Notes * Janet JOHNSONDOB:1994 (30 yo F)Acc No.[id number]:06/13/2025 Patient: Andrews Janet almonte Provider: Andrews Younger [facility] :1995 A ge:30 Y S ex:Female Date:06/13/2025 Address:[address] [place] [address] [address], [facility] [place], [id number] Patient's Default Facility:B [facility] Subjective: * Chief Complaints: * A PE, BWX, PEX gn * Electronic signature of [facility] evita Younger on 09/10/2025 at 05:27 AM ELEMENTARY SCHOOL TUTOR Sign off status: Pending * Provider: Andrews Younger [facility] Date: Generated for Printi ng/Faxing/eTransmitting on: 05:27 AM ELEMENTARY SCHOOL TUTOR
--- OUTSIDE RECORDS SUMMARY | 2025-09-10 05:27 | XMS_ITS | Patient Health Record ---
Author Organization [facility] Accounts Recei vable Address [address] [place] [address] Care Team Providers Care Unix Architect Name Role Phone Micah Ragsdale Unavailable [phone] [employer] Unavailable [phone] Carrie Younger Unavailable [phone] Allergies Allergen (clinical drug ingredient) Drug/Non Drug [...] cavity (V76.42) Active confirmed Problem Toothache (finding) (94946218) Tooth pain (K08.89) Active confirmed Problem At high risk for dental caries (finding) (021789477) Risk for dental caries, high (Z91.843) Active confirmed Vital Signs Heart Rate 74 BPM 04/11/2025 Blood pressure diastolic 69 mm Hg 04/11/2025 Height 65 in 04/11/2025 Blood pressure systolic 107 mm Hg 04/11/2025 Weight 171.6 lbs 04/11/2025 BMI 28.55 kg/m2 04/11/2025 Encounters Encounter Location Date Provider Diagnosis [address] [address] 03/13/2025 Carrie Aren Tooth pain K08.[address] [address] 04/11/2025 Abu Hasme Assessments Encounter Date Diagnosis [...] Date Coverage End Date Medicai d-Denta l [employer] [address] [place] [address] [phone] [id number] Janet Johnson Self - patient is the insured Medical (General) History Medical History History ICD Code Allergies ADD\ ADHD astma Anxeity and Depression Surgical History Surgery Date(Month/Year) C section Tub tied Gallbladder Hospitalization History Reason Date(Month/Year) see above
--- OUTSIDE RECORDS SUMMARY | 2025-09-10 05:28 | XMS_ITS | Patient Health Record ---
Author Organization [facility] Address [address] [place] [address] Care Team Providers Care Bit Gatherer Name Role Phone Arben Sigala MD Primary Care Provider Marce Zuñiga Unavailable [phone] Allergies Allergen (clinical drug ingredient) Drug/Non Drug [...] Provider Speciality Family Med icine Referred Organization [facility] Referred Provider Alondra Singer Referred Address [address],[address], Referred Provider Specialty Cardiology Referral Priority Routine Medications Medication SIG (Take, Route, Frequency, Duration) Notes Start Date End Date Status DULoxetine HCl 30 MG Capsule Delayed Release Particles 1 capsule daily for 1 week then increase to 2 capsules daily Orally Once a day; Duration: 30 day(s) Activ e Immunizations Vaccine Route Administration Date Status Comme nts Influenza (whole), CPT 92444 Inactive Unknown 02/28/2019 Administered Influenza (whole), CPT 35707 Inactive Unknown 06/17/2019 Administered Social History Tobacco [...] Status W/U Status Risk Notes Problem visit (989999850) Encounter for routine follow-up (Z39.2) Active confirmed Problem Insomnia (437175229) Insomnia (G47.00) Active confirmed Problem Recurrent major depression (11828421) Depression, major, recurrent (F33.9) Active confirmed Problem Generalized anxiety disorder (59773994) KIRSTEN (generalized anxiety disorder) (F41.1) Active confirmed Problem Depression (367247811) Other depression (F32.89) Active confirmed Problem Psychosis (88146359) Psychosis (F29) Active confirmed Problem Gastroesophageal reflux disease (455316738) Gastroesophageal reflux disease, unspecified whether esophagitis present (K21.9) Active confirmed Encounters Encounter Location Date Provider Diagnosis [facility] [address] [place], [place] [address] 08/19/2025 Marce Malave Plan Of Treatment Next Appt Details Provider Name:Marce silva, 09/24/2025 11:00:00 AM, [address], [place], [address], Provider Name:Alondra zavala, 09/24/2025 01:30:00 PM, [address], [place], [address], Insurance Providers Payer Name Payer Address Payer Phone Subscriber Number Group Number Insured Name Patient Relationship to Insured Coverage Start Date Coverage End Date [place] Medicaid [address] [place] [phone] [id number] Janet Fisher Self - patient is the insured Medical (General) History Medical History History ICD Code Asthma Closed fracture of distal phalanx of fin calli Irregular periods Anemia Anxiety Chronic depression Irritable colon anxiety Surgical History Surgery Date(Month/Year) Cholecystectomy 2015 section 2018 Bilateral tubal ligation 09/25/2019 Hospitalization History Reason Date(Month/Year) see surgerys
[2025-09-10 05:32] VITALS: BP 127/70; PULSE 103; RESP 17; TEMP 36.7; O2SAT 99; BMI 29.1
--- NOTE | 2025-09-10 05:50 | W.ED.NAVMDI ---
HPI - Nausea/Vomiting/Diarrhea General: Chief complaint: Nausea/Vomiting/Diarrhea Stated complaint: V\N\D\Fever Time Seen by Provider: 09/10/25 05:41 Source: patient Mode of arrival: ambulatory Limitations: no limitations History of Present Illness: 30-year-old female is well-known to the ER states having nausea vomiting since yesterday. She states she has also been feeling extremely anxious. She denies any abdominal pain denies any fevers denies any worse improving factors. Related Data Home Medications ?Medication ?Instructions ?Recorded ?Confirmed ascorbic acid (vitamin C) 500 mg 250 mg PO DAILY 08/04/24 08/10/25 tablet (Vitamin C) [id number] carb-vit K 1 tab PO DAILY 08/04/24 08/10/25 18 mg iron-400 mcg-500 mg tablet mecobalamin (vitamin B12) 1,000 1,000 mcg PO DAILY 05/13/25 08/10/25 mcg chewable tablet (B12 Active) lorazepam 1 mg tablet 1 mg PO BEDTIME PRN Anxiety 08/07/25 08/10/25 pantoprazole 40 mg tablet,delayed 40 mg PO QAM 08/07/25 08/10/25 release trazodone 50 mg tablet See Rx Instructions .Route .COMPLEX 08/07/25 08/10/25 diphenhydramine HCl 25 mg capsule 25 mg PO TID PRN Anxiety 08/10/25 08/10/25 (Benadryl) lamotrigine 25 mg tablet (Lamictal) 25 mg PO QAM 08/10/25 08/10/25 olanzapine 2.5 mg tablet (Zyprexa) 2.5 mg PO QID PRN anxiety 08/10/25 08/10/25 Previous Rx's ?Medication ?Instructions ?Recorded mirtazapine 15 mg tablet 15 mg PO DAILY #30 tabs 08/21/25 Allergies Allergy/AdvReac Type Severity Reaction Status Date / Time escitalopram (From Lexapro) Allergy ADR-Seizure Verified 08/10/25 08:58 sertraline (From Zoloft) Allergy ADR-Seizure Verified 08/10/25 08:58 ketorolac (From Toradol) AdvReac ADR-Anxiety Verified 08/10/25 08:58 Review of Systems GI: Reports: vomiting PFSH ED PFSH: Medical History History of anemia Acid reflux Depression Anxiety IBS (irritable bowel syndrome) Insomnia Asthma Anemia Surgical History History of bilateral tubal ligation History of History of cholecystectomy Family History Grandmother Cancer Maternal-brain Mother Cancer breast/cervical Family/Other Cancer Maternal aunt-breast/cervical Family/Other Cancer, Onset Age: 4 Maternal uatuj-yqxqtgqa-tyzzrk away d/t this Brother Psychiatric illness Sister Psychiatric illness Sister Psychiatric illness Other Bleeding disorder Diabetes Hypertension Lung disease Stroke Denies family history of CAD (coronary artery disease) Clotting disorder Dementia Hyperlipidemia Chronic kidney disease (CKD) Anesthesia complication Social History Smoking and tobacco/nicotine status: never used tobacco/nicotine Alcohol intake: never Substance/Drug Use: never Lives independently: Yes Marital status: Number of children: 5 Current occupational status: disabled Rosalind/Sabianist: Hoahaoism Special rosalind needs: No Agree to transfusion: Yes Physical Exam Const: COMMON NORMALS: no acute distress, patient oriented x3 and healthy appearing HENMT: COMMON NORMALS: normocephalic and atraumatic HEAD & SCALP: normocephalic and atraumatic Eye: COMMON NORMALS: Equal, round and reactive pupils present and EOMs intact bilaterally PUPIL: Yes Equal, round and reactive pupils present Neck/C-Spine: COMMON NORMALS: full ROM and supple Chest: COMMONS NORMALS: normal inspection of the chest and normal palpation of entire chest wall Resp: COMMON NORMALS: normal respiratory effort, No retractions, No use of accessory muscles and clear to auscultation bilaterally AUSCULTATION: clear to auscultation bilaterally Cardio: COMMON NORMALS: regular rate, regular rhythm and No murmurs present (Cardio) RATE: regular rate RHYTHM: regular rhythm GI: COMMON NORMALS: Normal to inspection, nondistended, normoactive bowel sounds present, Soft to palpation, non-tender and no masses PALPATION: Yes Soft to palpation Extremity: COMMON NORMALS: normal to inspection and full ROM Neuro: COMMON NORMALS: patient oriented x3, moves all extremities and no focal motor deficits Psych: COMMON NORMALS: mental status grossly normal, Normal thought process present and cooperative THOUGHT PROCESS: Normal thought process present Skin: COMMON NORMALS: no rashes or lesions noted and no wounds GENERAL SKIN EXAM: no rashes or lesions noted Course Vital Signs: Vital signs: Vital Signs Temperature 98.1 F 09/10/25 05:32 Pulse Rate 101 H 09/10/25 06:01 Respiratory Rate 17 09/10/25 05:32 Blood Pressure 115/68 09/10/25 06:01 Pulse Oximetry 99 09/10/25 06:01 Oxygen Delivery Me thod Room Air 09/10/25 06:01 MDM - Nausea/Vomiting/Diarrhea Medical Decision Making 30-year-old female presents here with nausea vomiting differential includes gastritis, bowel obstruction. Patient abdominal exam here is benign she has no signs of bowel obstruction blood work shows no significant abnormality she has no signs of dehydration she feels improved after fluids and nausea meds she is stable for discharge follow-up PCP return if worsening. Medical Records I reviewed the patient's medical records. Lab Data I reviewed the patient's lab results. 09/10/25 06:06 09/10/25 06:06 Laboratory Results WBC 5.15 10^3/uL (3.29-11.43) 09/10/25 06:06 RBC 4.15 10^6/uL (3.85-5.65) 09/10/25 06:06 Hgb 12.60 g/dL (11.27-16.99) 09/10/25 06:06 Hct 37.5 % (36-47) 09/10/25 06:06 MCV 90.4 fl (85-98) 09/10/25 06:06 MCH 30.4 pg (27-33) 09/10/25 06:06 MCHC 33.6 g/dL (30-55) 09/10/25 06:06 RDW 12.8 % (12.1-15.1) 09/10/25 06:06 Plt Count 216 10^3/cmm (157-399) 09/10/25 06:06 MPV 10.0 fL (7.4-10.4) 09/10/25 06:06 Neut % (Auto) 66.0 % 09/10/25 06:06 Lymph % (Auto) 22.1 % 09/10/25 06:06 Lane % (Auto) 9.7 % 09/10/25 06:06 Eos % (Auto) 1.4 % 09/10/25 06:06 Baso % (Auto) 0.6 % 09/10/25 06:06 Neut # (Auto) 3.40 10^3/uL (1.8-7.7) 09/10/25 06:06 Lymph # (Auto) 1.1 10^3/uL (0.8-4.8) 09/10/25 06:06 Lane # (Auto) 0.5 10^3/uL (0.2-0.9) 09/10/25 06:06 Eos # (Auto) 0.1 10^3/uL (0.0-0.8) 09/10/25 06:06 Baso # (Auto) 0.0 10^3/uL (0.0-0.1) 09/10/25 06:06 Nucleated RBC % (auto) 0 % 09/10/25 06:06 Nucleated RBCs # 0.0 /100WBC 09/10/25 06:06 Sodium 138 mmol/L (136-145) 09/10/25 06:06 Potassium 3.6 mmol/L (3.5-5.1) 09/10/25 06:06 Chloride 103 mmol/L (98-107) 09/10/25 06:06 Carbon Dioxide 21 mmol/L (22-29) L 09/10/25 06:06 Anion Gap 17.6 (5-19) 09/10/25 06:06 BUN 10 mg/dL (6-20) 09/10/25 06:06 Creatinine 1.0 mg/dL (0.5-0.9) H 09/10/25 06:06 GFR Calculation 65.1 mL/min (90-130) L 09/10/25 06:06 Glucose 108 mg/dL (65-115) 09/10/25 06:06 Calculated Osmolality 286 mOsm/kg (285-295) 09/10/25 06:06 Calcium 8.9 mg/dL (8.5-10.5) 09/10/25 06:06 Total Bilirubin 1.3 mg/dL (0.15-1.2) H 09/10/25 06:06 AST 17 U/L (0-32) 09/10/25 06:06 ALT 10 U/L (0-33) 09/10/25 06:06 Alkaline Phosphatase 53 U/L (35-105) 09/10/25 06:06 Total Protein 7.0 g/dL (6.6-8.7) 09/10/25 06:06 Albumin 4.5 g/dL (3.5-5.2) 09/10/25 06:06 Globulin 2.5 g/dL (1.3-4.6) 09/10/25 06:06 Lipase 16 U/L (13-60) 09/10/25 06:06 HCG, Qual Negative (Negative) 09/10/25 06:06 Urine Color Yellow (Yellow) 09/10/25 06:05 Urine Appearance Clear (CLEAR) 09/10/25 06:05 Urine pH 8.0 (5-7) A 09/10/25 06:05 Ur Specific [place] 1.010 (1.005-1.030) 09/10/25 06:05 Urine Protein Negative (Negative) 09/10/25 06:05 Urine Glucose (UA) Negative (Normal) 09/10/25 06:05 Urine Ketones Negative (Negative) 09/10/25 06:05 Urine Blood Negative (Negative) 09/10/25 06:05 Urine Nitrate Negative (Negative) 09/10/25 06:05 Urine Bilirubin Negative (Negative) 09/10/25 06:05 Urine Urobilinogen 1.0 mg/dL (Negative) 09/10/25 06:05 Ur Leukocyte Esterase Negative (Negative) 09/10/25 06:05 Urine RBC 0-2 /hpf (0-2) 09/10/25 06:05 Urine WBC 0-5 /hpf (0-5) 09/10/25 06:05 Ur Squamous Epith Cells 0-5 /hpf (0-5) 09/10/25 06:05 Amorphous Sediment Not Reportable 09/10/25 06:05 Urine Bacteria None seen /hpf (NONE) 09/10/25 06:05 Hyaline Casts 0.40 /lpf 09/10/25 06:05 No radiology studies performed this visit Discharge Plan Discharge Patient Disposition: Home Clinical Impression: Vomiting Condition: Stable Prescriptions: No Action mecobalamin (vitamin B12) [B12 Active] 1,000 mcg tablet,chewable 1,000 mcg PO DAILY diphenhydramine HCl [Benadryl] 25 mg Capsule 25 mg PO TID PRN (Reason: Anxiety) olanzapine [Zyprexa] 2.5 mg tablet 2.5 mg PO QID PRN (Reason: anxiety) lamotrigine [Lamictal] 25 mg tablet 25 mg PO QAM mirtazapine 15 mg tablet 15 mg PO DAILY Qty: 30 0RF ascorbic acid (vitamin C) [Vitamin C] 500 mg Tablet 250 mg PO DAILY Women's Multivitamin 18 mg iron-400 mcg-500 mg Tablet 1 tab PO DAILY trazodone 50 mg tablet See Rx Instructions .ROUTE .COMPLEX Rx Instructions: TAKE 1/2 TABLET BY MOUTH IN THE MORNING AND TAKE 1 TABLET BY MOUTH AT NIGHT pantoprazole 40 mg tablet,delayed release (DR/EC) 40 mg PO QAM lorazepam 1 mg tablet 1 mg PO BEDTIME PRN (Reason: Anxiety) Discharge Orders: Discharge ED (Routine); Ordered 09/10/25 Ordered By: Linda Ulloa Referrals: Arben Sigala MD [Primary Care Provider, Family Practice] - 4-7 days Discharge Diet: Advance as tolerated Discharge Activity: Resume usual activity Patient Instructions: Acute Nausea and Vomiting (ED) Print Language: Tamazight Coding Level of Care Code ED [employer] Machin[employer] for Zach Moe
[2025-09-10] MEDS: ondansetron 2 mg/ML SDV 2 mL 4 MG IVP (05:59)
[2025-09-10 06:01] VITALS: BP 115/68; PULSE 101; O2SAT 99
[2025-09-10] MEDS: LORazepam 2 mg/mL INJ 1 mL 1 MG IVP (06:11)
[2025-09-10 06:25] LABS: Hematocrit 37.5 % (36-47); Hemoglobin 12.60 g/dL (11.27-16.99); Mean Corpuscular HGB Conc 33.6 g/dL (30-55); Mean Corpuscular Hemoglobin 30.4 pg (27-33); Mean Corpuscular Volume 90.4 fl (85-98); Nucleated Red Blood Cells % 0 %; Platelet Count 216 10^3/cmm (157-399); Red Blood Count 4.15 10^6/uL (3.85-5.65); White Blood Count 5.15 10^3/uL (3.29-11.43)
[2025-09-10 06:27] LABS: Glucose Urine UA Negative (Normal); Nitrate Urine Negative (Negative); Specific Gravity, Urine 1.010 (1.005-1.030)
[2025-09-10 06:32] LABS: Add Urine Microscopic? YES
[2025-09-10 06:34] LABS: HCG, Serum Qual Negative (Negative)
[2025-09-10 06:46] LABS: Alanine Aminotransferase 10 U/L (0-33); Albumin Level 4.5 g/dL (3.5-5.2); Alkaline Phosphatase 53 U/L (35-105); Anion Gap 17.6 (5-19); Aspartate Amino Transferase 17 U/L (0-32); Blood Urea Nitrogen 10 mg/dL (6-20); Calcium 8.9 mg/dL (8.5-10.5); Carbon Dioxide 21 mmol/L (22-29); Chloride 103 mmol/L (98-107); Globulin 2.5 g/dL (1.3-4.6); Glucose 108 mg/dL (65-115); Lipase 16 U/L (13-60); Osmolality Calculated 286 mOsm/kg (285-295); Potassium 3.6 mmol/L (3.5-5.1); Sodium 138 mmol/L (136-145); Total Protein 7.0 g/dL (6.6-8.7)
== END 2025-09-10 07:46 | disposition home or self-care (01) ==
PROVIDERS: Emergency Provider Emergency Medicine
DX: R11.10 Vomiting, unspecified (principal)
CPT/HCPCS: 80053; 81001; 83690; 84703; 85025; 96374; 96375; 99284; J2060; J2405; J7030